=== PATIENT | male | born 1950 | race Caucasian/White ===

== ENCOUNTER → 2021-03-19 14:46 | Outpatient (CLI) | payer MEDICARE, BC, SELFPAY ==
--- NOTE | 2021-03-19 14:59 | XR_ITS ---
PROCEDURE: XR ANKLE WT BEARING LT MIN 3V CLINICAL INDICATION: pain COMPARISON: No exams were available for comparison FINDINGS: There is mild eversion of ankle with narrowing of the joint space laterally. There are mild osteoarthritic changes at the ankle joint including the tibial talar joint and posterior subtalar joint with pes planus noted and a small calcaneal spur. No acute fracture or dislocation. No lytic or blastic change. IMPRESSION: Degenerative changes with pes planus. Dictated by: Titus Abbott MD 03/19/2021 16:15 Titus Abbott MD in [place] 03/19/2021 16:15
--- NOTE | 2021-03-19 14:59 | XR_ITS ---
PROCEDURE: XR ANKLE WT BEARING RT MIN 3V CLINICAL INDICATION: pain COMPARISON: No exams were available for comparison FINDINGS: There are severe osteoarthritic changes of the ankle with loss of joint space and osteophyte formation. There is cortical regularity of the talar dome. The ankle mortise is preserved. There is flattening of the talar dome posteriorly with prominent posterior talar process. Pes planus noted. Bony hypertrophy is also present along the anterior and dorsal aspect of the calcaneus. 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
== END ==
PROVIDERS: PCP Physician Assistant; Visit Provider Podiatrist
DX: M25.572 Pain in left ankle and joints of left foot (principal); M25.571 Pain in right ankle and joints of right foot
CPT/HCPCS: 73610

== ENCOUNTER → 2021-04-07 13:13 | Outpatient (CLI) | payer MEDICARE, BC, SELFPAY ==
--- NOTE | 2021-04-07 13:18 | XR_ITS ---
PROCEDURE: XR ANKLE WT BEARING LT MIN 3V CLINICAL INDICATION: b/l ankle pain COMPARISON: CR XR ANKLE WT BEARING LT MIN 3V from 03/19/2021 CR XR ANKLE WT BEARING RT MIN 3V from 03/19/2021 FINDINGS: There is decrease in the ankle joint space laterally with the talus slightly katy it. This is not significantly changed. There is mild widening of the space between the lateral aspect of the talus and the fibula. Overall, the ankle mortise does not appear widened. The talar dome has an unremarkable appearance. There is mild spurring of the distal tibia. Small calcaneal spur and Achilles enthesophyte noted along with pes planus. Mild osteoarthritis of the ankle. IMPRESSION: Degenerative changes as described above with mild eversion of the talus overall not significantly changed along with pes planus. Dictated by: Titus Abbott MD 04/07/2021 15:04 Titus Abbott MD in [place] 04/07/2021 15:04
--- NOTE | 2021-04-07 13:18 | XR_ITS ---
PROCEDURE: XR FOOT WT BEARING RT 3V XR ankle weight-bearing right three views CLINICAL INDICATION: foot pain COMPARISON: CR XR ANKLE WT BEARING RT MIN 3V from 04/07/2021 FINDINGS: Right foot: No fracture or dislocation. No lytic or blastic change. There is normal mineralization. Hallux valgus with mild osteoarthritis 1st MTP joint Other findings:Pes planus Right ankle: Severe osteoarthritis at the talotibial joint. There is mild anterior subluxation of the tibia with an osteophyte along the anterior talar dome buttressing the distal tibia. The prominent hypertrophic changes are present involving the posterior talar process. Subcortical cyst lucencies are present at the talar dome with some cortical irregularity of the distal tibia and the talar dome. Bony hypertrophy of the medial malleolar region. There is mild flattening of the talar dome posteriorly IMPRESSION: Right ankle: Severe osteoarthritis of the ankle with anterior subluxation of the tibia and prominent posterior talar process with bony hypertrophy with a buttressing osteophytes of the calcaneus and along the talar neck and anterior distal tibia. Right foot: Mild hallux valgus with pes planus. Dictated by: Titus Abbott MD 04/07/2021 16:00 Titus Abbott MD in [place] 04/07/2021 16:00
--- NOTE | 2021-04-07 14:46 | XR_ITS ---
PROCEDURE: XR CALCANEUS RT MIN 2V CLINICAL INDICATION: foot pain COMPARISON: CR XR ANKLE WT BEARING RT MIN 3V from 03/19/2021 FINDINGS: Mildly prominent calcaneal spur. Small Achilles enthesophyte. There is a prominent posterior talar process with bony hypertrophy projecting superiorly at this region. A bridging osteophyte projects from the superior aspect of the calcaneus to the prominent posterior talar process. No obvious fracture or dislocation. IMPRESSION: There is a prominent posterior talar process with bony hypertrophy projecting superiorly at this region. A bridging osteophyte projects from the superior aspect of the calcaneus to the prominent posterior talar process Dictated by: Titus Abbott MD 04/07/2021 15:55 Titus Abbott MD in [place] 04/07/2021 15:55
--- NOTE | 2021-04-07 14:46 | XR_ITS ---
PROCEDURE: XR FOOT WT BEARING LT 3V CLINICAL INDICATION: foot pain COMPARISON: No exams were available for comparison FINDINGS: No fracture or dislocation. No lytic or blastic change. There is normal mineralization. Osteoarthritic changes are present at the 1st tarsal metatarsal joint. Hypertrophy is noted involving the proximal aspect of the 1st metatarsal. There is severe pes planus. Osteoarthritic changes are present also at the talonavicular and navicular cuneiform joint. There is a small calcaneal spur. Osteoarthritic changes are present at the ankle. Other findings:None. IMPRESSION: Severe pes planus with osteoarthritis of the 1st tarsal metatarsal junction, talonavicular joint and navicular cuneiform joint. Dictated by: Titus Abbott MD 04/07/2021 19:29 Titus Abbott MD in [place] 04/07/2021 19:29
--- NOTE | 2021-04-07 14:46 | XR_ITS ---
PROCEDURE: XR CALCANEUS LT MIN 2V CLINICAL INDICATION: foot pain COMPARISON: No exams were available for comparison FINDINGS: No fracture or dislocation. There is a small calcaneal spur. Small Achilles enthesophyte. There osteoarthritic changes of the ankle with posterior osteophyte of the distal tibia. IMPRESSION: No acute findings. Dictated by: Titus Abbott MD 04/07/2021 19:40 Titus Abbott MD in [place] 04/07/2021 19:40
== END ==
PROVIDERS: PCP Physician Assistant; Visit Provider Podiatrist
DX: M25.572 Pain in left ankle and joints of left foot (principal); M25.571 Pain in right ankle and joints of right foot
CPT/HCPCS: 73610; 73630; 73650

== ENCOUNTER → 2021-05-29 07:45 | Outpatient (CLI) | payer MEDICARE, BC, SELFPAY ==
[2021-05-29] VITALS (8 sets, daily range): BP systolic 120–136; BP diastolic 70–77; PULSE 64–78; RESP 18; O2SAT 95–97
== END ==
DX: U07.1 COVID-19 (principal); Z23 Encounter for immunization
CPT/HCPCS: 96365

== ENCOUNTER → 2022-08-04 15:32 | Outpatient (CLI) | payer MEDICARE, BC, SELFPAY ==
--- NOTE | 2022-08-04 15:37 | XR_ITS ---
FINAL REPORT CLINICAL HISTORY: Foot Pain FINDINGS: RIGHT FOOT Three views of the right foot demonstrate no acute fracture or dislocation. There are moderate degenerative changes. There is mild hallux valgus deformity. There are calcaneal spurs. The soft tissues are unremarkable. IMPRESSION: Moderate degenerative changes with no acute bony abnormality. Reviewed, Interpreted and Dictated by Carlton Braswell III, MD Transcribed by Kaitlynn Holcomb Authenticated and [facility]
--- NOTE | 2022-08-04 15:37 | XR_ITS ---
FINAL REPORT CLINICAL HISTORY: Foot Pain FINDINGS: LEFT FOOT Three views of the left foot demonstrate no acute fracture or dislocation. There are moderate degenerative changes. There is valgus angulation of the midfoot. There is pes planus deformity. There are calcaneal spurs. The soft tissues are unremarkable. IMPRESSION: Moderate degenerative changes with no acute bony abnormality. Reviewed, Interpreted and Dictated by Carlton Braswell III, MD Transcribed by Kaitlynn Holcomb Authenticated and . [facility]
--- NOTE | 2022-08-04 15:37 | XR_ITS ---
FINAL REPORT CLINICAL HISTORY: Ankle Pain FINDINGS: LEFT ANKLE Three views of the left ankle were obtained. There is no acute fracture or dislocation. There are moderate degenerative changes. There is pes planus deformity. There are calcaneal spurs. There is soft tissue swelling about the ankle. IMPRESSION: Moderate degenerative changes with no acute bony abnormality. Reviewed, Interpreted and Dictated by Carlotn Braswell III, MD Transcribed by Kaitlynn Holcomb Authenticated and [facility]
--- NOTE | 2022-08-04 15:37 | XR_ITS ---
FINAL REPORT CLINICAL HISTORY: Ankle Pain FINDINGS: RIGHT ANKLE Three views of the right ankle were obtained. There is no acute fracture or dislocation. There are moderate and severe degenerative changes. There is pes planus deformity. There are calcaneal spurs. There is a chronic appearing irregularity of the talar dome. There is soft tissue swelling about the ankle. IMPRESSION: Moderate and severe degenerative changes with no acute bony abnormality. Reviewed, Interpreted and Dictated by Carlton Braswell III, MD Transcribed by Kaitlynn Holcomb Authenticated and [facility]
== END ==
PROVIDERS: PCP Nurse Practitioner Family; Visit Provider Nurse Practitioner Family
DX: M25.572 Pain in left ankle and joints of left foot; M25.571 Pain in right ankle and joints of right foot; M79.672 Pain in left foot; M79.671 Pain in right foot
CPT/HCPCS: 73610; 73630

== ENCOUNTER → 2022-11-01 14:58 | Outpatient (CLI) | payer MEDICARE, BC, SELFPAY ==
--- NOTE | 2022-11-01 14:58 | CT_ITS ---
FINAL REPORT TECHNIQUE: Thin section axial CT images with coronal and sagittal reformats were performed. This study was performed with techniques to keep radiation doses as low as reasonably achievable (ALARA). Individualized dose reduction techniques using automated exposure control or adjustment of mA and/or kV according to the patient''s size were employed. CLINICAL HISTORY: foot pain, no injury. Patient is diabetic. He is also having a mri at this time. FINDINGS: CT RIGHT FOOT WITHOUT CONTRAST There are no fractures. Severe degenerative changes are seen in the ankle joint. Moderate degenerative changes are seen in the midfoot and hindfoot. There is no obvious bony destruction. There are no masses or fluid collections. There are no soft tissue abnormalities. IMPRESSION: Degenerative changes without bone destruction or fluid collection. A component of neuropathic joint is not excluded. Reviewed, Interpreted and Dictated by Risa Flor MD Transcribed by Susannah Ramos Authenticated and [facility]
--- NOTE | 2022-11-01 14:58 | CT_ITS ---
FINAL REPORT TECHNIQUE: Thin section axial CT images with coronal and sagittal reformats were performed. This study was performed with techniques to keep radiation doses as low as reasonably achievable (ALARA). Individualized dose reduction techniques using automated exposure control or adjustment of mA and/or kV according to the patient''s size were employed. CLINICAL HISTORY: foot pain, no injury. patient is diabetic. patient is also having a mri of both feet at this time. FINDINGS: CT LEFT FOOT WITHOUT CONTRAST There are no fractures. There are mild degenerative changes of the hindfoot and ankle joint with severe degenerative changes of the tarsometatarsal joint. There are mild degenerative changes at the lateral midfoot. There are no masses or fluid collections. There are no soft tissue abnormalities. IMPRESSION: Mild degenerative changes of the ankle and hindfoot with severe degenerative change of the medial midfoot. Reviewed, Interpreted and Dictated by Risa Flor MD Transcribed by Susannah Ramos Authenticated and [facility]
--- NOTE | 2022-11-01 16:05 | MR_ITS ---
PROCEDURE INFORMATION: Exam: MR Right Lower Extremity Joint Without Contrast; Ankle Exam date and time: 11/01/2022 4:16 PM Age: 72 years old Clinical indication: Pain; Ankle; Right; Additional info: Ankle pain. FX in ankle years ago and pain since. TECHNIQUE: Imaging protocol: Magnetic resonance imaging of the right lower extremity without contrast. Exam focused on the ankle. COMPARISON: CR XR ANKLE WT BEARING RT MIN 3V 08/04/2022 3:39 PM FINDINGS: Bones/joints: Chronic contour irregularity of tibiofibular joint with [id number] appearance, subchondral sclerosis and periarticular reactive changes. No acute cortical disruption or fracture line identified. No effusion. Normal bone signal. LIGAMENTS: Chronically attenuated deltoid ligament. Attenuated anterior and posterior talofibular ligaments. Calcaneofibular ligament not visualized. Tibiofibular ligament grossly unremarkable. TENDONS: Posterior tibial, flexor digitorum longus, flexor hallucis longus, Achilles, peroneal, anterior tibial, extensor hallucis longus, extensor digitorum longus tendons grossly intact and unremarkable. Tarsal canal (Sinus tarsi): Sinus tarsi grossly unremarkable. Tarsal tunnel: Unremarkable. Soft tissues: Interstitial ligamentous sprain of flexor hallucis longus muscle. Plantar fascia: Plantar aponeurosis grossly unremarkable. IMPRESSION: 1. Severe degenerative changes of tibiotalar joint with [id number] appearance, reactive subchondral sclerosis and periarticular edema. No acute cortical disruption fracture line identified. 2. Suspected, chronic partial-thickness tear of deltoid, anterior and posterior talofibular ligaments. Nonvisualized calcaneofibular ligament. Can not exclude chronic rupture.
== END ==
PROVIDERS: PCP Nurse Practitioner Family; Visit Provider Nurse Practitioner Family
DX: M14.672 Charcot's joint, left ankle and foot (principal); M19.071 Primary osteoarthritis, right ankle and foot; M19.072 Primary osteoarthritis, left ankle and foot; M21.41 Flat foot [pes planus] (acquired), right foot; M21.42 Flat foot [pes planus] (acquired), left foot
CPT/HCPCS: 73700; 73721

== ENCOUNTER → 2022-11-02 14:59 | Outpatient (CLI) | payer MEDICARE, BC, SELFPAY ==
--- NOTE | 2022-11-02 14:59 | MR_ITS ---
PROCEDURE INFORMATION: Exam: MR Left Lower Extremity Joint Without Contrast; Ankle Exam date and time: 11/02/2022 3:45 PM Age: 72 years old Clinical indication: Pain; Ankle; Left; Additional info: Ankle pain TECHNIQUE: Imaging protocol: Magnetic resonance imaging of the left lower extremity without contrast. Exam focused on the ankle. COMPARISON: CR XR ANKLE WT BEARING LT MIN 3V 08/04/2022 3:39 PM FINDINGS: Bones/joints: Calcaneal spurs are visualized. Degenerative changes are visualized at the tibiotalar joint, with severe joint space narrowing, spurring, cortical irregularity and mild subchondral cystic change. Subchondral cystic change is also identified adjacent to the subtalar joint anteriorly, consistent with arthropathy. Mild spurring is identified of the medial malleolus and adjacent talus. There is cortical regularity and spurring of the distal fibula. Advanced arthropathy is seen at the 1st metatarsal-tarsal joint, with subchondral cystic change. Degenerative changes are visualized involving the midfoot. A tiny osseous cyst is seen within the distal fibula. Small tibiotalar joint effusion. A small complex subtalar joint effusion is seen posterior to the joint. Additional arthropathy at metatarsal-tarsal joints. LIGAMENTS: Distal tibiofibular syndesmosis: Heterogeneous signal intensity of the anterior and posterior tibiofibular ligaments, with suggested partial tears. Anterior talofibular ligament: Heterogeneous signal intensity of the anterior talofibular ligament, with partial tear. Posterior talofibular ligament: There is heterogeneous signal intensity of the posterior talofibular ligament. Partial tear cannot be excluded. Calcaneofibular ligament: The calcaneofibular ligament is small in caliber. Partial tear cannot be excluded. Deltoid ligament complex: Increased signal intensity within the deltoid ligament, with suggested partial tear. TENDONS: Flexor tendons of foot: See below. Tibialis posterior tendon: Heterogeneous signal intensity of the posterior tibialis tendon, with a small amount of surrounding fluid. This is consistent with tenosynovitis. Tenosynovitis visualized of the flexor hallucis tendon. Peroneal tendons: Mild tenosynovitis of the peroneal tendons. Extensor tendons of foot: Minimal fluid adjacent to the extensor digitorum tendons, suggestive of tenosynovitis. Tibialis anterior tendon: Unremarkable as visualized. Achilles tendon: Thickening of the Achilles tendon. Tendinosis is considered. Tarsal canal (Sinus tarsi): Edema and small cystic collections of fluid are seen within the sinus tarsi. Tarsal tunnel: Unremarkable. Soft tissues: Minimal fluid within the retrocalcaneal bursa. Patchy muscle edema visualized involving the foot and ankle. Myositis and myopathy are within the differential. Severe muscle atrophy identified involving the foot. Plantar fascia: Intact, as visualized. IMPRESSION: 1. Degenerative changes are visualized involving the foot and ankle, as detailed above. Advanced arthropathy is seen at the 1st metatarsal-tarsal joint. Significant degenerative changes are seen at the tibiotalar and subtalar joints. 2. Tenosynovitis of the posterior tibialis tendon and flexor hallucis tendon. Mild tenosynovitis of the peroneal tendons. 3. Partial tear of the anterior talofibular ligament. Suggested partial tears of the anterior and posterior tibiofibular ligaments. Suggested partial tear of the deltoid ligament. 4. Small tibiotalar joint effusion. A small complex subtalar joint effusion is seen posterior to the joint. 5. Patchy muscle edema visualized involving the foot and ankle.
== END ==
PROVIDERS: PCP Nurse Practitioner Family; Visit Provider Nurse Practitioner Family
DX: M14.672 Charcot's joint, left ankle and foot (principal); M19.071 Primary osteoarthritis, right ankle and foot; M19.072 Primary osteoarthritis, left ankle and foot; M21.41 Flat foot [pes planus] (acquired), right foot; M21.42 Flat foot [pes planus] (acquired), left foot; M25.572 Pain in left ankle and joints of left foot
CPT/HCPCS: 73721

== ENCOUNTER → 2023-03-15 10:55 | Outpatient (CLI) | payer MEDICARE, BC, SELFPAY ==
--- NOTE | 2023-03-15 10:57 | US_ITS ---
FINAL REPORT CLINICAL HISTORY: LE weakness and pain, ex-smoker FINDINGS: COMPLETE ANKLE/BRACHIAL INDICES BILATERAL Complete ankle brachial indices were obtained. The right PATITO is 1.4. The left PATITO is 1.3. IMPRESSION: ABIs are within normal limits bilaterally. Reviewed, Interpreted and Dictated by Carlton Braswell III, MD Transcribed by Jeanine Luis Authenticated and [facility]
--- NOTE | 2023-03-15 11:23 | ECG_ITS ---
APPROVED REPORT Exam: Resting ECG HR:65 bpm ECG Measurements Heart Rate 65 AXES MS 172 P 57 QRSd 94 QRS 75 QT 384 T 45 QTc 396 Conclusion SINUS RHYTHM WITH SINUS ARRHYTHMIA NORMAL ECG UNCONFIRMED REPORT Electronically signed by : Vaughn Roman MD 03/15/2023 19:22:29
--- NOTE | 2023-03-15 11:35 | XR_ITS ---
FINAL REPORT CLINICAL HISTORY: cough FINDINGS: Two views of the chest were obtained. The heart size and pulmonary vascularity are within normal limits. The mediastinum is normal. No acute pulmonary abnormality is identified. There is no pneumothorax. The bony thorax is intact. IMPRESSION: No active cardiopulmonary disease. Reviewed, Interpreted and Dictated by Carlton Braswell III, MD Transcribed by Jeanine Luis Authenticated and [facility]
[2023-03-15 12:02] LABS: Basophils % 0.2 % (0.1-2.0); Eosinophils # 0.1 K/mm3 (0.0-0.4); Eosinophils % 1.9 % (0.1-12.0); Hematocrit 42.6 % (42.0-52.0); Hemoglobin 14.3 g/dL (14.1-18.0); Lymphocytes # 1.5 K/mm3 (0.7-4.5); Lymphocytes % 20.9 % (10-50); Mean Corpuscular HGB Conc 33.7 g/dL (31.8-35.4); Mean Corpuscular Hemoglobin 28.2 pg (27.0-31.2); Mean Corpuscular Volume 83.7 fl (80-94); Mean Platelet Volume 8.3 fl (7.4-10.4); Monocytes # 0.3 K/mm3 (0.1-1.0); Neutrophils # 5.1 K/mm3 (1.8-7.8); Neutrophils % 72.9 % (37.0-80.0); Platelet Count 180 K/mm3 (142-424); Red Blood Count 5.09 M/mm3 (4.60-6.20); Red Cell Distribution Width 14.8 % (11.5-17.5)
[2023-03-15 12:41] LABS: Hemoglobin A1C 6.5 % (4.0-6.0)
[2023-03-15 12:58] LABS: Chloride 102 mmol/L (98-107); Potassium 3.9 mmoL/L (3.5-5.1); Sodium 137 mmol/L (136-145)
[2023-03-15 13:00] LABS: Alanine Aminotransferase 37 U/L (12-78); Aspartate Amino Transferase 45 U/L (17-59); Blood Urea Nitrogen 17 mg/dl (9-20); Estimated Glomerular Filt Rate 73 ml/min (>60); GFR (African American) 88 ML/MIN (>60)
[2023-03-15 13:01] LABS: Albumin Level 4.2 g/dl (3.5-5.0); Albumin/Globulin Ratio 1.4 (1.1-1.8); Alkaline Phosphatase 106 U/L (38-126); Anion Gap 14.9 mEq/L (5-15); Bilirubin,Total 0.7 mg/dl (0.2-1.3); Calcium 9.4 mg/dl (8.4-10.2); Carbon Dioxide 24 mmol/L (22.0-30.0); Glucose 210 mg/dl (74-100); Total Protein,Serum 7.2 g/dl (6.3-8.2)
[2023-03-15 15:41] LABS: Vitamin B12 362 pg/mL (239-931)
[2023-03-26 18:29] LABS: 1,25 Dihydroxy Vitamin D 30 pg/mL (.); 1,25-Dihydroxy, Vitamin D-2 11 pg/mL (.); 1,25-Dihydroxy, Vitamin D-3 19 pg/mL (.)
== END ==
PROVIDERS: PCP Nurse Practitioner Family; Visit Provider Podiatrist
DX: E11.42 Type 2 diabetes mellitus with diabetic polyneuropathy (principal); M19.071 Primary osteoarthritis, right ankle and foot; M19.072 Primary osteoarthritis, left ankle and foot; R09.89 Other specified symptoms and signs involving the circulatory and respiratory systems; G89.29 Other chronic pain; M14.672 Charcot's joint, left ankle and foot; M25.571 Pain in right ankle and joints of right foot; M25.572 Pain in left ankle and joints of left foot; R29.898 Other symptoms and signs involving the musculoskeletal system; Z79.84 Long term (current) use of oral hypoglycemic drugs
CPT/HCPCS: 36415; 71046; 80053; 82607; 82652; 82746; 83036; 84443; 85025; 93005; 93923

== ENCOUNTER 2023-03-30 12:31 | Emergency (ER) | payer MEDICARE, BC, SELFPAY ==
[2023-03-30 13:00] VITALS: BP 141/86; PULSE 70; RESP 19; TEMP 36.8; O2SAT 96; BMI 32.5
[2023-03-30 13:10] VITALS: BP 141/86; PULSE 70; RESP 19; TEMP 36.8; O2SAT 96
--- NOTE | 2023-03-30 13:16 | EXP.UTC ---
Discharge Plan Disposition Patient Disposition: Home, Self-Care Condition: Good Prescriptions Prescriptions: New ondansetron 4 mg tablet,disintegrating 4 mg PO Q8H PRN (Reason: nausea and vomiting) Qty: 10 0RF No Action amlodipine 5 mg tablet 5 mg PO metformin 500 mg tablet 500 mg PO losartan-hydrochlorothiazide 100-25 mg tablet 1 tab PO simvastatin 40 mg tablet 40 mg PO celecoxib 200 mg capsule 200 mg PO aspirin 81 mg capsule 81 mg PO DAILY Trulicity 0.75 mg/0.5 mL pen injector SQ Centrum Silver Men 300-600-300 mcg tablet 1 tab PO DAILY diphenhydramine-acetaminophen [Tylenol PM Extra Strength] 25-500 mg tablet 1 tab PO HS PRN latanoprost 0.005 % drops OPHTHALMIC Patient Comments: INSTILL 1 DROP IN BOTH EYES AT BEDTIME potassium chloride 10 mEq tablet extended release 10 meq PO timolol maleate 0.5 % drops 1 drp OPHTHALMIC Patient Comments: INSTILL ONE DROP INTO BOTH EYES EVERY MORNING venlafaxine 75 mg tablet extended release 24hr 75 mg PO DAILY Patient Comments: TAKE 1 TABLET BY MOUTH EVERY DAY WITH FOOD esomeprazole magnesium 40 mg capsule,delayed release(DR/EC) 40 mg PO Jardiance 10 mg tablet 10 mg PO DAILY Referrals Follow up/Referrals: Nickie Bullock APRN [Primary Care Provider] - See instructions Activity Restrictions/Add. Instructions Additional Instructions/Restrictions: Drink extra fluids with and between meals. If you have difficulty drinking, try very small amounts of water or suck on ice chips. ? Avoid fruit juices, as these do not replace minerals and can actually increase diarrhea. ? Children and adults can use sports drinks to replenish electrolytes. Younger children and infants should use products formulated for children, like oral rehydration solutions. ? Eat food in small amounts and let your stomach recover. ? Get lots of rest. You may feel tired or weak. ? No greasy or fried foods for the next 24-48 hours BRAT diet Bananas Rice Apples and [place] ? Make sure to drink plenty of liquids ? Return if needed ? Straight to ER if any life threatening symptoms ? Zofran as prescribed ? You was given an outpatient order for diarrhea panel, please collect specimen and bring back to outpatient lab then call back to the [facility] or follow up with family doctor for results ? Follow up with family doctor in the next 48-72 hours if no improvement or any worsening of symptoms Clinical Impressions Clinical Impression: Nausea, vomiting and diarrhea Instructions Patient Instructions: Nausea and Vomiting-Adult, Diarrhea Discharge ED Provider: Ailyn Tejeda [facility] [place] HPI General Stated complaint: stomach pain, vomiting, diarrhea Mode of Arrival: Ambulatory Source of Information: Patient Limitations: No Limitations Time Seen by Provider: 03/30/23 13:16 Description of Symptoms (Recalled from Triage Doc. by RN): PATIENT C/O VOMITING AND DIARRHEA SINCE TUESDAY HEENT Symptoms (Recalled from RN notes): No Resp Symptoms (Recalled from RN notes): No Skin Symptoms (Recalled from RN notes): No MS Symptoms (Recalled from RN notes): No Functional Status (Recalled from RN notes): WNL History of Present Illness Provider Complaint: Patient states that got sick on Tuesday then Yesterday he started with N/V/D also States that he has still been drinking ok and he wanted to get something to help with his nausea Related Data Home Medications Medication Instructions Recorded Confirmed amlodipine 5 mg tablet 5 mg PO 04/07/21 02/03/23 aspirin 81 mg capsule 81 mg PO DAILY 04/07/21 02/03/23 celecoxib 200 mg capsule 200 mg PO 04/07/21 02/03/23 diphenhydramine 25 1 tab PO HS PRN 04/07/21 02/03/23 mg-acetaminophen 500 mg tablet (Tylenol PM Extra Strength) dulaglutide 0.75 mg/0.5 mL m
== END 2023-03-30 13:47 | disposition home or self-care (01) ==
PROVIDERS: Emergency Provider Nurse Practitioner; PCP Nurse Practitioner Family
DX: R11.2 Nausea with vomiting, unspecified (principal); R19.7 Diarrhea, unspecified; Z87.891 Personal history of nicotine dependence
CPT/HCPCS: 99204; 99212; G0463

== ENCOUNTER → 2023-05-06 11:46 | Outpatient (CLI) | payer MEDICARE, BC, SELFPAY ==
--- NOTE | 2023-05-06 | CA_ITS ---
APPROVED REPORT Exam: Pharmacologic Technologist: Ilda Cadena, Ht: 5 ft 8 in Wt: 215 lbs BSA: 2.11 m2 HR: 60 bpm BP: 138/74 mmHg Rhythm: sinus bradycardia Medical History Medications: Amlodipine,,,,, Omeprazole,,,,, Aspirin,,,,, Simvastatin,,,,, Metformin,,,,, Tylenol,,,,, Celecoxib,,,,, Venlafaxine,,,,, Losartan HCTZ,,,,, Potassium,,,,, TrULicity,,,,, Vit D2,,,,, Cardiac Risk Factors: HTN, Hyperlipidemia, Diabetes (non-insulin), Smoking Stress Test Details Test: LEXISCAN HR Resting HR: 62 bpm Max Heart Rate (APMHR): 146 bpm Max HR Achieved: 84 bpm Target HR (85% APMHR): 124 bpm % of APMHR: 58 Recovery HR: 66 bpm BP Resting BP: 138/74 mmHg Max BP: 163/75 mmHg Recovery BP: 163.0/75.0 mmHg ECG Resting ECG: Sinus bradycardia Stress ECG: No significant ST changes Arrhythmia: None Clinical Exercise duration: 04:01 min Highest Stage Achieved: Exercise capacity: 1.0 METs Stress ECG Conclusion During lexiscan pt experinced mild dizziness, no CP noted. No arrhythmias noted. No significant ST changes. Conclusion: Unremarkable lexiscan stress. Myoview images reported separately. Test Summary REST . . . . . . . Sitting REST 04:15 . . 62 . 138/ 74 . . Stage 1 01:00 . . 76 . . . . Stage 2 01:00 . . 78 . . . . Stage 3 01:00 . . 68 . 148/ 70 . . Stage 4 01:00 . . 63 . 154/ 72 . . Stage 4 01:01 . . 63 . 154/ 72 . Stop exercise at 04:01 RECOVERY 01:00 . . 65 . . . . RECOVERY 02:00 . . 76 . . . . RECOVERY 03:00 . . 63 . 163/ 75 . . RECOVERY 03:41 . . 64 . 156/ 75 . . Electronically signed by : Misa Green MD 05/10/2023 10:55:05
--- NOTE | 2023-05-06 11:47 | NM_ITS ---
APPROVED REPORT Exam: Nuclear Stress Test Indication: chest pain..palpitations..pre-op Patient Location: Outpatient Stress Tech: Ilda MEDRANO Tech:Suzy Joshua GILBERT RT(R)(N) Ht: 5 ft 7 in Wt: 215 lbs HR: 62 bpm BP: 138/74 mmHg BSA: 2.09 m2 TID: 1.27 BMI: 33.6 History: chest pain..palpitations..pre-op Procedure: Patient received 0.4 mg of intravenous Lexiscan, resting heart rate 62 bpm, resting blood pressure 138/74 mmHg, with Lexiscan maximum heart rate achieved was 84 bpm which is 85 % of the maximum predicted heart rate and blood pressure was 163/75 mmHg. With Lexiscan, patient denied any complaint of chest pain. Cardiac Stress and Resting SPECT Images: Cardiac Stress and Resting SPECT images were obtained using technetium 99m Myoview 32.6 mCi stress and 10.75 mCi at rest. Resting and stress imaging in supine and prone positions demonstrate no evidence of fixed or reversible perfusion defects. There is increased transient ischemic dilatation ratio (TID 1.27), suggestive of possible multivessel disease or balanced ischemia. Gated imaging demonstrates normal global and regional LV systolic function. LVEF is calculated at 65%. Conclusion: No evidence of fixed or reversible perfusion defects. There is increased transient ischemic dilatation ratio (TID 1.27), suggestive of possible multivessel disease or balanced ischemia. Gated imaging demonstrates normal global and regional LV systolic function. LVEF is calculated at 65%. Electronically signed by : Misa Green MD 05/10/2023 10:56:29
--- NOTE | 2023-05-06 13:41 | CA_ITS ---
APPROVED REPORT EXAM: Comprehensive 2D, Doppler, and color-flow Echocardiogram Sanforizer: Jing Velez, ROMAN, RVS Ht: 5 ft 7 in Wt: 215lbs BSA: 2.09 BP: 132/74 mmHg Indications: SOA, Pre-op, ex-smoker, CP, HTN, DM 2D Dimensions Aortic Root 3.11 cm LVEF (Weir's) 60.00 % Left Atrium 2.66 cm LV Volume 85.60 mL LVOT 1.91 cm (M/F) 1.5-2.5 LA Volume 69.20 mL LA Volume Index 33.10 mL/m2 (M/F) 16-34 EF AP4 65.50 % EF AP2 53.6 % EF BP 60.0 % GL Strain -20.6 % M-Mode Dimensions RVDd 1.75 cm (0.9-2.6) LVDd 5.15 cm (3.5-5.7) Ao Diam 3.37 cm (2.0-3.7) LVDs 3.01 cm (3.5-5.7) IVSd 1.07 cm (0.6-1.1) PWd 0.97 cm (0.6-1.1) EF (Teich) 72.10% EPSs 0.32 cm FS 41.60% EDV (Teich) 126.60 mL TAPSE 1.66 (<1.7) ESV (Teich) 35.30 mL LV Diastology E Decel Time 261 (160-240 msec) E/A Ratio 0.80 MED E' 5.7 (>= 7 cm/sec) MED A' 12.00 cm/s E'/MED E' Ratio 13.30 (<= 14) LAT E' 6.8 (>= 10 cm/sec) LAT A' 10.80 cm/s E/LAT E' Ratio 11.15 (<= 14) Aortic Valve LVOT Max 146.0 (70-110 cm/s) ELANA Index 1.24 cm2/m2 LVOT VTI 32.43 cm AoV Peak Hal. 180.0 (50-130 cm/s) AO Mean GR. 6.50 (<5 mmHg) AO VTI 35.7 (18-25 cm) ELANA (VTI) 2.60 (2.5-4.5 cm2) Mitral Valve MV E Max Hal. 76.0 (40-130 cm/s) MV A Velocity 95.0 (40-130 cm/s) E/A Ratio 0.80 MV Decel. Time 261 (160-240 ms) Pulmonary Valve DC End VMAX 194.0 cm/s Tricuspid Valve TR P. Velocity 146.00 cm/s Left Ventricle The left ventricle is normal size. The left ventricular systolic function is normal. The left ventricular ejection fraction is within the normal range. There is increased LV wall thickness. Proximal septal thickening is noted. There is normal LV segmental wall motion. The left ventricular diastolic function is normal. LVEF is 60%. Right Ventricle The right ventricle is normal size. The right ventricular systolic function is normal. Atria The left atrium size is normal. The right atrium size is normal. Aortic Valve The aortic valve is mildly thickened. There is no aortic valvular stenosis. Trace aortic regurgitation. Mitral Valve The mitral valve leaflets are mildly thickened. No evidence of mitral valve stenosis. Trace mitral regurgitation. Tricuspid Valve The tricuspid valve leaflets are thin and pliable. Trace tricuspid regurgitation. There is insufficient TR jet to estimate RVSP. Pulmonic Valve The pulmonary valve is normal in structure. Trace pulmonic regurgitation. Great Vessels The aortic root is normal in size. The ascending aorta is normal in size. The IVC is not well-visualized. Pericardium Reveal pericardial effusion. There are no echo indications of tamponade. Other Information Study Quality: Fair Conclusion Normal biventricular systolic function. No significant valvular stenosis or regurgitation. Trivial pericardial effusion. Electronically signed by : Misa Green MD 05/09/2023 21:33:33
== END ==
PROVIDERS: PCP Nurse Practitioner Family; Visit Provider Nurse Practitioner Family
DX: Z01.810 Encounter for preprocedural cardiovascular examination (principal); E78.5 Hyperlipidemia, unspecified; I10 Essential (primary) hypertension; R06.00 Dyspnea, unspecified; R06.09 Other forms of dyspnea; R07.89 Other chest pain; R94.31 Abnormal electrocardiogram [ECG] [EKG]; Z87.891 Personal history of nicotine dependence
CPT/HCPCS: 78452; 93017; 93018; 93306; A9502; J2785

== ENCOUNTER 2023-05-12 08:55 | Day surgery (SDC) | payer MEDICARE, BC, SELFPAY ==
[2023-05-12] VITALS (10 sets, daily range): BP systolic 121–155; BP diastolic 63–90; PULSE 57–71; RESP 15–17; O2SAT 91–96; BMI 33.3
--- NOTE | 2023-05-12 | IR_ITS ---
APPROVED REPORT Patient Location: Outpatient PROCEDURES Left heart catheterization Left ventriculogram Selective coronary angiogram INDICATION Abnormal Myoview, Preoperative evaluation Informed consent was obtained prior to the procedure. COMPLICATIONS None Estimated Blood Loss: Less than 10 mls TECHNIQUE One percent lidocaine used to anesthetize the right anterior aspect of the wrist. The right radial artery was accessed via the Seldinger technique. A 6 German sheath was placed in the right radial artery. 2.5 mg of Verapamil, 800 mcg of nitroglycerin, 1mg Lidocaine and 5000 U Heparin were given through the arterial sheath. The papa catheter and 6 German JL 3 catheter were also used to perform left heart catheterization, left ventriculogram and selective coronary angiogram. At the end of the procedure the sheath was removed good hemostasis was achieved using Traclet band, patient was transferred to the postop holding area in stable condition. ANGIOGRAPHIC RESULTS The left main artery Normal The left anterior descending artery Proximal 10% luminal irregularities with a mid vessel 40 to 50% stenosis followed by distal concentric 60 to 70% stenoses and a portion of the LAD which is only 2 mm in diameter The circumflex artery Is nondominant and has proximal and mid vessel 30 to 40% stenoses The right coronary artery Is a dominant vessel and has proximal and mid vessel 30% stenoses The HILLS ventriculogram reveals Normal 65% The left ventricular end-diastolic pressure 10 mmHg IMPRESSION Coronary artery disease as described above which is best managed medically Normal ejection fraction Normal left ventricular cell pressure PLAN 1. Risk factor modification 2. Cardiac rehabilitation 3. Avoidance of tobacco products 4. LDL less than 55 to be achieved with high intensity statin 5. Patient is alone acceptable risk to proceed with upcoming knee replacement surgery Electronically signed by : Santiago Brown MD 05/12/2023 12:19:26
[2023-05-12 09:36] LABS: Basophils # 0.1 K/mm3 (0-0.2); Basophils % 0.7 % (0.1-2.0); Eosinophils # 0.2 K/mm3 (0.0-0.4); Eosinophils % 2.3 % (0.1-12.0); Hematocrit 44.1 % (42.0-52.0); Hemoglobin 15.3 g/dL (14.1-18.0); Lymphocytes # 1.7 K/mm3 (0.7-4.5); Lymphocytes % 22.5 % (10-50); Mean Corpuscular HGB Conc 34.6 g/dL (31.8-35.4); Mean Corpuscular Hemoglobin 28.6 pg (27.0-31.2); Mean Corpuscular Volume 82.7 fl (80-94); Mean Platelet Volume 9.1 fl (7.4-10.4); Monocytes # 0.5 K/mm3 (0.1-1.0); Monocytes % 6.3 % (1.7-9.3); Neutrophils # 5.1 K/mm3 (1.8-7.8); Neutrophils % 68.2 % (37.0-80.0); Platelet Count 205 K/mm3 (142-424); Red Blood Count 5.33 M/mm3 (4.60-6.20); Red Cell Distribution Width 14.8 % (11.5-17.5); White Blood Count 7.5 K/mm3 (4.8-10.8)
[2023-05-12 09:46] LABS: Chloride 102 mmol/L (98-107); Sodium 139 mmol/L (136-145)
[2023-05-12 09:47] LABS: Potassium 3.8 mmoL/L (3.5-5.1)
[2023-05-12 09:49] LABS: Blood Urea Nitrogen 14 mg/dl (9-20); Creatinine Clearance Estimated 83 mL/min (50-200); Estimated Glomerular Filt Rate 65 ml/min (>60); GFR (African American) 79 ML/MIN (>60)
[2023-05-12 09:50] LABS: Anion Gap 13.8 mEq/L (5-15); Calcium 9.5 mg/dl (8.4-10.2); Carbon Dioxide 27 mmol/L (22.0-30.0); Glucose 160 mg/dl (74-100)
== END 2023-05-12 15:37 | disposition home or self-care (01) ==
LOC: CATHLAB 08:56
PROVIDERS: PCP Nurse Practitioner Family; Visit Provider Internal Medicine
DX: R94.39 Abnormal result of other cardiovascular function study (principal); I10 Essential (primary) hypertension; E78.5 Hyperlipidemia, unspecified; E11.42 Type 2 diabetes mellitus with diabetic polyneuropathy; Z79.84 Long term (current) use of oral hypoglycemic drugs; Z79.899 Other long term (current) drug therapy; Z87.891 Personal history of nicotine dependence; I25.10 Atherosclerotic heart disease of native coronary artery without angina pectoris
CPT/HCPCS: 80048; 85025; 93458; 99152; C1725; C1760; C1769; J1644; Q9967

== ENCOUNTER 2023-07-06 09:47 | Observation (INO) | payer MEDICARE, BC, SELFPAY ==
[2023-07-04 13:14] VITALS: BMI 33.0
[2023-07-06] VITALS (18 sets, daily range): BP systolic 107–145; BP diastolic 53–78; PULSE 61–97; RESP 12–18; TEMP 36.3–37.6; O2SAT 92–96; BMI 34.4
--- NOTE | 2023-07-06 07:30 | XR_ITS ---
FINAL REPORT CLINICAL HISTORY: surgery COMPARISON: 03/15/2023 FINDINGS: A single portable view of the chest was obtained. The heart size and pulmonary vascularity are within normal limits. The mediastinum is within normal limits. No acute pulmonary abnormality is identified. The bony thorax is intact. IMPRESSION: No active cardiopulmonary disease. Reviewed, Interpreted and Dictated by Carlton Braswell III, MD Transcribed by Fidelina Mccormick Authenticated and [facility]
[2023-07-06] MEDS: LACTATED RINGERS 1000ML 1,000 ML 25 ML IV (07:51)
--- NOTE | 2023-07-06 09:03 | P.PNANES_ITS ---
[facility] Disclaimer: The information contained in this section may have been updated after the patient was seen, as this information can be updated by other users. Medical History Arthritis CAD (coronary artery disease) Diabetes GERD (gastroesophageal reflux disease) History of tonsillitis HLD (hyperlipidemia) HTN (hypertension) Surgical History History of appendectomy History of cardiac cath History of cholecystectomy History of hernia repair History of knee replacement Family History Other Family history of cancer Family history of diabetes mellitus Family history of heart disease Social History Smoking Status: Former smoker alcohol intake: former substance use type: denies use current occupational status: retired Travel in the last 8 weeks: Inside the [place] [facility] Anesthesia Checklist Patient Identification Patient Identification: Arm Band and Verbal (Name & ) Structural Data Admitted From: Home Planned Operative Procedure/s: Arthrodesis with ankle lengthening Consent for Planned Operative Procedure(s) Verified: Yes NPO Status Verified Time NPO: 00:00 Chart Verification Results Verified: CBC, BMP and ECG Additional verifications Anesthesia Reactions: No Hx Blood Transfusions: No Blood Transfusion Reaction: No Airway Assessment Mallampati Score:: Class III C-Spine Mobility Assessed: Yes TMJ Mobility Assessed: Yes Dentition: Good Dentition Neurological Assessment Level of Consciousness: Awake Hx Seizures: No Numbness or tingling in extremities: No Anesthesia Plan Anesthesia Risk discussed: Yes Anesthesia Plan: Verified ASA Class: II Anesthesia Type: General w/block
[2023-07-06] MEDS: CEFAZOLIN SODIUM 2 GM in 0.9 % SODIUM CHLORIDE 100 ML IV (09:50)
[2023-07-06 09:55] LABS: POC Glucose,Bedside 145 (70-110)
--- NOTE | 2023-07-06 13:37 | XR_ITS ---
FINAL REPORT CLINICAL HISTORY: ANKLE STABILATION, BONE GRAFT 2.20 min 7.19 mgy FINDINGS: FLUOROSCOPY LESS THAN 1 HOUR HISTORY: Fluoroscopy guidance. Fluoroscopic guidance was provided for ankle stabilization, bone graft. 2 spot films were obtained. A total of 2.20 minutes of fluoroscopy time were used. Total DAP: 7.19 mGy IMPRESSION: As above. Reviewed, Interpreted and Dictated by Carlton Braswell III, MD Transcribed by Mari Hinds Authenticated and [facility]
--- NOTE | 2023-07-06 14:30 | EXP.ANES.I ---
[facility] Anesthesia Record Part I Anesthesia Record I Intake, IV Amount: 2,500 Hydration: Adequate Estimated blood loss (mL): 0 Urine output (mL): 400 Blood Pressure: 144/74 SaO2: 93 Pulse Rate: 92 Airway Patency: Patent Respiratory Rate: 12 Temperature: 97.8 F Patient is:: Awake and Stable Stable to PACU at:: 14:28
--- NOTE | 2023-07-06 14:44 | XR_ITS ---
FINAL REPORT CLINICAL HISTORY: pacu- post op, left ankle stablization COMPARISON: 08/04/2022 FINDINGS: Left ankle Three views were obtained. There are postsurgical changes from fusion of the ankle and rear foot. Intramedullary betsey and several screws are present. There is a drain in the anterior soft tissues. IMPRESSION: Postsurgical changes. Reviewed, Interpreted and Dictated by Carlton Braswell III, MD Transcribed by Jeanine Luis Authenticated and [facility]
[2023-07-06 14:57] LABS: Microscopic,Cath URINE MICROSCOPIC (MICROSCOPIC)
--- NOTE | 2023-07-06 15:07 | EXP.OP.NOTE ---
Date of procedure: 07/06/23 Pre-op Diagnosis:: Left foot/ankle Charcot neuroarthropathy Left hindfoot osteoarthritis Left ankle instability Type 2 diabetes Obesity class I Post-op Diagnosis:: Same Procedure performed:: Left tibiotalar calcaneal arthrodesis Left partial resection of fibula Left posterior tibial tendon debridement Left peroneal tenosynovectomy Application of allograft Application of DEBI drain Application of posterior splint Surgeon:: Laya Moreno DPM VICE PRESIDENT MEDIA RELATIONS:: Lance June Anesthesia: GETA and regional (Left popliteal, adductor canal nerve block) Estimated blood loss (mL): 40 Clinical Note:: Patient is a 73-year-old diabetic male with peripheral neuropathy and Charcot joint, bilateral flatfoot who presents with worsening ankle instability and pain. Conservative care has included: Modification of shoe gear, modification of activity, strapping/taping, ice, elevation, inserts, ankle bracing, immobilization, NSAIDs, steroid injections and stretching/PT without relief of symptoms. After a long discussion with the patient in regards to the conservative versus surgical treatment for the arthritic and Charcot deformity, the patient has elected to proceed with surgery because they have failed conservative treatment and continue to have pain and worsening symptoms affecting daily activities. The patient has been instructed on the planned procedure, all risk versus benefits of the procedure discussed. Discussed these include but are not limited to: bleeding, infection, nerve and blood vessel damage, need for further surgery, recurrence/worsening deformity, delay in healing of soft tissue or bone, failure of bones to heal, non-union, mal-union, failure of the implant, prolonged pain and recovery, prolonged/permanent edema, CRPS/RSD, DVT/PE and anesthetic complications including stroke/. Discussed if surgery is unsuccessful or has complications, likely could get a BKA. Discussed risks of surgery in detail with focus on infection/wound complications, Charcot and diabetes complications. No guarantees were given. All questions fully answered. The patient verbalized understanding and agreed to proceed with surgery. Written consent obtained. Operative findings:: Left ankle instability with tears of the deltoid, ATFL and CFL. Peroneal tendon was thickened and hypertrophic consistent with tears and healing. Synovitis noted around the tendon. PT tendon was also synovitic with some abnormal thickening. Ankle joint had significant arthritis with [id number] deformity. Talus was sclerotic with cystic changes. Subtalar joint impingement with [id number] deformity. Operative note:: On this date and time patient was deemed appropriate surgical candidate. With informed consent signed patient was wheeled from the preoperative holding area to the operating theater and placed on table in normal supine position after anesthesia gave a regional nerve block. Monahan catheter inserted. Left thigh tourniquet applied. IV Ancef infused. Left lower extremity prepped and draped in normal sterile fashion. Left posterior tibial tendon debridement: Attention was directed to the medial ankle where an incision was mapped out over the medial ankle gutter extending to the TN joint. Full-thickness dissection with care to maintain surgical hemostasis and safely retract neurovascular structures. PT tendon was noted to be thickened and hypertrophied. 15 blade and forceps used to sharply excisionally debride synovitic tissue and debride the tendon. A piece of the abnormal tendon was sent to pathology as a specimen. Left peroneal tenosynovectomy: Attention was directed to the lateral ankle where an incision was mapped out over the fibula, lateral ankle gutter extending to the calcaneal cuboid joint. Fibers of the CC joint kept intact. Obvious ankle instability was noted with a positive anterior drawer and tears of the ATFL and CFL. Peroneal tendons were identified and noted to be synovitic. 15 blade and forceps were used to sharply debride the peroneal tendons. Left tibiotalar calcaneal arthrodesis, partial resection of fibula, allograft: Dissection of both the medial and lateral incisions full-thickness down to the level of the bone. The ankle joint and subtalar joint were identified and had significant arthritic deformity with sclerosis and [id number] deformity with cystic changes throughout both joints. There is a large bony arthritic prominence noted to the distal fibula. Rongeur used to resect the piece of the fibula. In standard technique cartilage was removed from ankle and subtalar joint. Subchondral bone plate was fenestrated down to the level of good healthy bleeding bone. Joint was irrigated. No signs of infection. Next due to extensive deformity and defects throughout both joints, allograft bone fibers were inserted into the joint along with augment. Next the ankle joint was reduced and temporarily fixated. The subtalar joint was then reduced and temporarily fixated. Intraoperative fluoroscopy including AP, lateral and calcaneal axial views were used to check the position of reduction which was deemed to be appropriate. In standard technique in accordance with manufacture guidelines a [employer] valor nail was then inserted from the inferior calcaneus up through the subtalar joint and into the ankle. X-ray was utilized throughout the case to confirm position of reduction. The nail was compressed and screws were inserted without complication. Remaining bone graft was then packed around the ankle and subtalar joints. Application of DEBI drain, posterior splint: Deep closure in a running fashion with Vicryl. Due to the extensive incisions and bleeding/hematoma formation potential, DEBI drain was inserted on the lateral incision. Subcutaneous tissue repaired with Vicryl. The skin was reapproximated with nylon and skin shravan. Skin was cleansed. Tourniquet was deflated and immediate hyperemic response was noted to the digits. Xeroform applied to all incisions followed by Betadine soaked gauze. A dry sterile dressing was then applied followed by a below-knee posterior splint. Patient was awoken from anesthesia with vital signs stable neurovascular status intact when transferred to recovery. He appeared to tolerate procedure and anesthesia well without complication. Materials: U[employer] medical valor nail x 150mm (size 11), locking screws x4, Augment x2 (6cc), Biomatrix fibers (10cc) Plan: Admission per hospitalist team for 23-hour observation Patient is to maintain dressing clean dry and intact. Ice (polar pack) behind the left knee and elevate on two pillows. Non weight bearing to the left lower extremity with DME assistance (walker, rolling knee scooter). Incentive spirometer q1h. PT in am for gait training and DME recommendations. DEBI drain mgmt/education. Podiatry will see patient in am for drain evaluation. Likely discharge home tomorrow if no issues overnight. Tourniquet time (min): 100 Condition: stable Disposition: same day Specimens:: Left posterior tibial tendon Complications:: None
--- NOTE | 2023-07-06 15:11 | EXP.POD.CONS ---
History of Present Illness *Admission Date: 07/06/23 *Reason for visit:: Post op left TTC AD *History of present illness: Patient is a 73-year-old male who underwent a left tibiotalar calcaneal arthrodesis today. He was admitted by the hospitalist team for 23-hour observation. Reason for admission: Anesthesia length, pain control, PT evaluation for gait control and DME recommendations, medical management for: Diabetes, CAD, hypertension, hyperlipidemia. No intraoperative or anesthesia complications. At the time of transfer to floor patient was resting comfortably in recovery with vital signs stable neurovascular status intact. [facility] Disclaimer: The information contained in this section may have been updated after the patient was seen, as this information can be updated by other users. Medical History Arthritis CAD (coronary artery disease) Diabetes GERD (gastroesophageal reflux disease) History of tonsillitis HLD (hyperlipidemia) HTN (hypertension) Surgical History History of appendectomy History of cardiac cath History of cholecystectomy History of hernia repair History of knee replacement Family History Family history of heart disease Family history of cancer Family history of diabetes mellitus Social History Smoking Status: Former smoker alcohol intake: former substance use type: denies use current occupational status: retired Travel in the last 8 weeks: Inside the [facility] Meds Home Medications and Allergies Home Medications Medication Instructions Recorded Confirmed Type amlodipine 5 mg tablet 5 mg PO DAILY 04/07/21 07/06/23 History aspirin 81 mg capsule 81 mg PO DAILY 04/07/21 07/06/23 History celecoxib 200 mg capsule 200 mg PO DAILY 04/07/21 07/06/23 History diphenhydramine 25 1 tab PO HS PRN Pain 04/07/21 07/06/23 History mg-acetaminophen 500 mg tablet (Tylenol PM Extra Strength) dulaglutide 0.75 mg/0.5 mL 0.75 ml SQ WEEKLY 04/07/21 07/06/23 History subcutaneous pen injector (Trulicity) losartan 100 1 tab PO DAILY 04/07/21 07/06/23 History mg-hydrochlorothiazide 25 mg tablet metformin 500 mg tablet 500 mg PO DAILY 04/07/21 07/06/23 History ciiroqno-uj-spllb 300 mcg-K 60 1 tab PO DAILY 04/07/21 07/06/23 History mcg-lycop 600 mcg-lutein 300 mcg tablet (Centrum Silver Men) simvastatin 40 mg tablet 40 mg PO DAILY 04/07/21 07/06/23 History potassium chloride 10 mEq 10 meq PO DAILY 08/12/21 07/06/23 History tablet,extended release blood sugar diagnostic (OneTouch #10 ea 04/14/23 07/06/23 History Ultra Test strips) cholestyramine-aspartame 4 gram 1 ea PO DAILY 04/14/23 07/06/23 History oral powder for susp in a packet (Prevalite) ergocalciferol (vitamin D2) 1,250 1,250 mcg PO WEEKLY low vit D 3 04/14/23 07/06/23 Rx mcg (50,000 unit) capsule (Vitamin months #13 caps D2) venlafaxine 75 mg capsule,extended 75 mg PO DAILY 04/14/23 07/06/23 History release 24 hr omeprazole 40 mg capsule,delayed 40 mg PO DAILY 05/05/23 07/06/23 History release New Prescriptions to Start Prescriptions: Allergies Allergy/AdvReac Type Severity Reaction Status Date / Time latex Allergy Rash Verified 07/06/23 07:42 Exam (Inpt) Vital signs and Labs for Last 24 Hours: Temp Pulse Resp BP Pulse Ox O2 Del Method O2 Flow Rate 97.8 F 91 H 17 134/72 93 L Nasal Cannula 2 07/06/23 14:31 07/06/23 14:57 07/06/23 14:57 07/06/23 14:57 07/06/23 14:57 07/06/23 14:57 07/06/23 14:57 Laboratory Results - last 24 hr 07/06/23 07:49: POC Glucose 145 H I & O for Labs for Last 24 Hours: Intake & Output 07/04/23 07/05/23 07/06/23 07/07/23 11:59 11:59 11:59 11:59 Intake Total 2500 / 2500 Balance 2500 / 2500 Weight 211 lb 220 lb 6 oz Constitutional: Present no acute distress Head: Present normocephalic Neck: Present normal inspection Respiratory: Present normal respiratory effort Cardiac: Present pedal pulses present GI: Present soft Extremities: Present normal inspection Comment:: Left lower extremity splint and dressing clean dry and intact. Polar pack behind left knee. CFT within normal limits. Motor function and light touch sensation decreased secondary to nerve block. Skin: Present intact and dry Comment:: DEBI drain intact to the left ankle. Neuro: Present Motor Function Intact, oriented x 3 and moves all extremities Ankle: bilateral: normal inspection Feet/Toes: bilateral: deformity (Pes planus) Pulses: L dorsalis pedis pulse: normal, R dorsalis pedis pulse: normal, L posterior tibial pulse: normal and R posterior tibial pulse: normal CFT: normal: CFT Results Labs Labs: Abnormal lab results 07/06/23 Range/Units 07:49 POC Glucose 145 H (70-110) All other labs normal. Diagnostic results Ankle/Foot x-ray: image reviewed Assessment and Plan *Assessment and plan (1) Osteoarthritis of left ankle and foot: Status: Chronic Category: Medical Code(s): M19.072 - Primary osteoarthritis, left ankle and foot (2) Type 2 diabetes mellitus with diabetic polyneuropathy, without long-term current use of insulin: Status: Acute Category: Medical Code(s): E11.42 - Type 2 diabetes mellitus with diabetic polyneuropathy (3) Tardive dyskinesia: Status: Acute Category: Medical Code(s): G24.01 - Drug induced subacute dyskinesia (4) Status post arthrodesis: Status: Acute Category: Surgical Code(s): Z98.1 - Arthrodesis status Plan Surgery, 07/06/2023: s/p left TTC AD Admission: per Dr Burr Consult: Podiatry -Patient is to maintain dressing clean dry and intact. -Ice (polar pack) behind the left knee and elevate on two pillows. -Non weight bearing to the left lower extremity with DME assistance (walker, rolling knee scooter). -PT in am for gait training and DME recommendations. -Am labs: cbc, cmp. -DEBI drain mgmt/education. -Continue incentive spirometer q1h. -Rx for Percocet 7.5/325 and Valium given. e-Rx given for Keflex 500mg, Zofran and Motrin 800mg. -Podiatry will see patient in am for drain evaluation. -Likely discharge home tomorrow if no issues overnight.
[2023-07-06 15:30] LABS: Appearance,Urine/Cath CLEAR (Clear); Bilirubin,Cath Negative (Negative); Blood, Urine/Cath TRACE-I (Negative); Color,Urine/Cath YELLOW (Yellow); Glucose,Urine/Cath (UA) 2+ (Negative); Ketones,Urine/Cath Negative (Negative); Leukocyte Esterase,Cath Negative (Negative); Nitrate,Cath Negative (Negative); PH,Urine/Cath 7.5 (5.0-8.5); Protein,Urine/Cath Negative (Negative); Urobilinogen,Cath 0.2 EU/dl (0.2)
[2023-07-06 15:45] LABS: RBC,Urine/Cath Occasional # /hpf (0-3)
[2023-07-06] MEDS: humaLOG 100 UNITS/ML 3ML VIAL (SSI) SQ ×2 (16:58→20:49)
--- NOTE | 2023-07-06 17:41 | EXP.HP ---
History of Present Illness *Admission Date: 07/06/23 *Reason for visit:: left ankle pain, status-post surgery *History of present illness: Mr. Rust is a 73-year-old male with history of diabetes, hypertension, Charcot deformity of his left foot. Underwent left tibiotalar calcaneal arthrodesis today. Tolerated procedure well. Received nerve block after procedure. Discussed case with podiatry, request admission for observation overnight given the extent of anesthesia, pain control, PT eval and gait training. Medicine agreed to admit for further management. Patient at this time feels well with no shortness of breath or chest pain. Has no pain secondary to nerve block. at bedside, updated of plan. [facility] Disclaimer: The information contained in this section may have been updated after the patient was seen, as this information can be updated by other users. Medical History Arthritis CAD (coronary artery disease) Diabetes GERD (gastroesophageal reflux disease) History of tonsillitis HLD (hyperlipidemia) HTN (hypertension) Surgical History History of appendectomy History of cardiac cath History of cholecystectomy History of hernia repair History of knee replacement Family History Family history of heart disease Family history of cancer Family history of diabetes mellitus Social History Smoking Status: Former smoker alcohol intake: former substance use type: denies use current occupational status: retired Travel in the last 8 weeks: Inside the [place] Review of Systems Review of Systems Review of systems (narrative): 14 point review of systems performed, pertinent positives and negatives as per HPI Meds Home Medications and Allergies Home Medications Medication Instructions Recorded Confirmed Type amlodipine 5 mg tablet 5 mg PO DAILY 04/07/21 07/06/23 History aspirin 81 mg capsule 81 mg PO DAILY 04/07/21 07/06/23 History celecoxib 200 mg capsule 200 mg PO DAILY 04/07/21 07/06/23 History diphenhydramine 25 1 tab PO HS PRN Pain 04/07/21 07/06/23 History mg-acetaminophen 500 mg tablet (Tylenol PM Extra Strength) dulaglutide 0.75 mg/0.5 mL 0.75 ml SQ WEEKLY 04/07/21 07/06/23 History subcutaneous pen injector (Trulicity) losartan 100 1 tab PO DAILY 04/07/21 07/06/23 History mg-hydrochlorothiazide 25 mg tablet metformin 500 mg tablet 500 mg PO DAILY 04/07/21 07/06/23 History [id number]-gg-[id number] 300 mcg-K 60 1 tab PO DAILY 04/07/21 07/06/23 History mcg-lycop 600 mcg-lutein 300 mcg tablet (Centrum Silver Men) simvastatin 40 mg tablet 40 mg PO DAILY 04/07/21 07/06/23 History potassium chloride 10 mEq 10 meq PO DAILY 08/12/21 07/06/23 History tablet,extended release blood sugar diagnostic (OneTouch #10 ea 04/14/23 07/06/23 History Ultra Test strips) cholestyramine-aspartame 4 gram 1 ea PO DAILY 04/14/23 07/06/23 History oral powder for susp in a packet (Prevalite) ergocalciferol (vitamin D2) 1,250 1,250 mcg PO WEEKLY low vit D 3 04/14/23 07/06/23 Rx mcg (50,000 unit) capsule (Vitamin months #13 caps D2) venlafaxine 75 mg capsule,extended 75 mg PO DAILY 04/14/23 07/06/23 History release 24 hr cephalexin 500 mg capsule 500 mg PO BID 7 days #14 caps 07/06/23 07/06/23 Rx diazepam 5 mg tablet (Valium) 5 mg PO BID PRN muscle spasm 7 07/06/23 07/06/23 Rx days #14 tabs empagliflozin 10 mg tablet 10 mg PO DAILY 07/06/23 07/06/23 History (Jardiance) gabapentin 100 mg capsule 100 mg PO TID PRN nerve pain 10 07/06/23 07/06/23 Rx days #21 caps ketorolac 10 mg tablet 10 mg PO Q6H PRN pain 5 days #20 07/06/23 07/06/23 Rx tabs ondansetron 4 mg disintegrating 4 mg PO Q6H PRN nausea and 07/06/23 07/06/23 Rx tablet vomiting 7 days #28 tabs oxycodone-acetaminophen 7.5 mg-325 1 tab PO Q4H PRN pain 7 days #42 07/06/23 07/06/23 Rx mg tablet tabs pantoprazole 40 mg tablet,delayed 40 mg PO DAILY 07/06/23 07/06/23 History release New Prescriptions to Start Prescriptions: cephalexin 500 mg capsule diazepam 5 mg tablet gabapentin 100 mg capsule ketorolac 10 mg tablet ondansetron 4 mg disintegrating tablet oxycodone-acetaminophen 7.5 mg-325 mg tablet Allergies Allergy/AdvReac Type Severity Reaction Status Date / Time latex Allergy Rash Verified 07/06/23 07:42 Exam Data for Last 24 hours Vital signs and Labs for Last 24 Hours: Temp Pulse Resp BP Pulse Ox O2 Del Method O2 Flow Rate 98.0 F 92 H 16 129/78 93 L Room Air 2 07/06/23 17:00 07/06/23 17:00 07/06/23 17:00 07/06/23 17:00 07/06/23 17:09 07/06/23 17:09 07/06/23 14:58 Laboratory Results - last 24 hr 07/06/23 07:49: POC Glucose 145 H 07/06/23 10:05: Urine Color Yellow, Urine Appearance Clear, Urine pH 7.5, Ur Specific [place] 1.010, Urine Protein Negative, Urine Glucose (UA) 2+, Urine Ketones Negative, Urine Blood Trace-i, Urine Nitrate Negative, Urine Bilirubin Negative, Urine Urobilinogen 0.2, Ur Leukocyte Esterase Negative, Urine RBC Occasional, Urine WBC None, Ur Squamous Epith Cells None, Urine Bacteria None I & O for Last 24 hours: Intake & Output 07/03/23 07/04/23 07/05/23 07/06/23 23:59 23:59 23:59 23:59 Intake Total 2500 / 2500 Balance 2500 / 2500 Weight 95.708 kg 99.96 kg Constitutional Constitutional: no acute distress, obese and cooperative *Routine HEENT Exam Head: Present normocephalic and atraumatic Eye: Present EOMI and PERRL ENT: Present mucous membranes moist *Routine Neck Exam Neck: Present supple *Routine Respiratory Exam Respiratory: Present CTA bilaterally; Absent rhonchi, wheezes or crackles *Routine Cardiovascular Exam Cardiovascular: Present RRR *Routine Abdominal Exam Abdominal: Present soft and normoactive bowel sounds; Absent tenderness or distended *Routine Rectal Exam Rectal:: deferred *Routine Genitalia Exam Genitalia:: deferred *Routine Extremities Exam Extremities: Absent cyanosis, clubbing or edema Comments: Left foot in postsurgical bandage with DEBI drain, scant bloody discharge *Routine Skin Exam Skin: Present intact; Absent cyanosis or erythema *Routine Neurological Exam Neurological: Present alert, oriented X3 and moving all extremities; Absent altered mental status Assessment and Plan *Assessment and plan (1) Charcot's joint, left ankle and foot: Status: Chronic Category: Medical Code(s): M14.672 - Charcot's joint, left ankle and foot (2) Status post arthrodesis: Status: Acute Category: Surgical Code(s): Z98.1 - Arthrodesis status (3) Diabetic foot: Status: Acute Category: Medical Code(s): E11.8 - Type 2 diabetes mellitus with unspecified complications (4) Obesity, Class I, BMI 30-34.9: Status: Chronic Category: Medical Code(s): E66.9 - Obesity, unspecified (5) Type 2 diabetes mellitus with diabetic polyneuropathy, without long-term current use of insulin: Status: Acute Category: Medical Code(s): E11.42 - Type 2 diabetes mellitus with diabetic polyneuropathy (6) Hypertension: Status: Acute Qualifiers: Hypertension type: unspecified Qualified Code(s): I10 - Essential (primary) hypertension Category: Medical Code(s): I10 - Essential (primary) hypertension (7) Hyperlipidemia: Status: Acute Qualifiers: Hyperlipidemia type: unspecified Qualified Code(s): E78.5 - Hyperlipidemia, unspecified Category: Medical Code(s): E78.5 - Hyperlipidemia, unspecified (8) CAD (coronary artery disease): Status: Acute Category: Medical Code(s): I25.10 - Atherosclerotic heart disease of [place] coronary artery without angina pectoris Plan 73-year-old male admitted postop to medicine for observation, pain control, eval by PT. Discussed case with podiatry, request admission for monitoring overnight and gait training by therapy in the morning. Barring any complications, anticipate discharge tomorrow. Problems addressed as follows: This post arthrodesis of left Charcot joint. Diabetic neuropathy -Podiatry consulted, appreciate their recommendations. Status post surgery, patient tolerated procedure well. See op note for full details. Maintain dressing that is clean dry and intact. -Polar pack behind knee and elevate on 2 pillows to decrease pain, nerve block administered in postop setting. -Patient is nonweightbearing on left lower extremity with rolling knee scooter. -PT consulted to assist with gait training in the morning. -CBC, CMP, magnesium ordered for the morning. -DEBI drain for management of surgical wound blood. Will leave in place at discharge. - Percocet 7.5/325 and Valium given. e-Rx given for Keflex 500mg, Zofran and Motrin 800mg. -Podiatry will see patient in am for drain evaluation. -Likely discharge home tomorrow if no issues overnight. -Continue gabapentin 100 g 3 times daily as needed Diabetes: A1c pending. Most recent was 6.5 in February -Continue home metformin 500 mg daily, Jardiance 10 mg daily -Sliding scale insulin with fingersticks ACHS Hypertension: Continue home amlodipine 5 mg daily, losartan 100/HCTZ 25 mg daily Hyperlipidemia: Continue home simvastatin 40 mg daily GERD: Continue pantoprazole 40 mg daily Mood disorder: Continue Effexor 75 mg extended release daily Sleep disorder: To Tylenol 3 at night, will continue diphenhydramine 25 mg nightly Full code Holding anticoagulation in postop setting Diabetic diet
[2023-07-06 18:25] LABS: POC Glucose,Bedside 244 (70-110)
[2023-07-06] MEDS: CEFAZOLIN SODIUM 1 GM in 0.9 % SODIUM CHLORIDE 50 ML IV (18:28)
[2023-07-06] MEDS: KETOROLAC 30MG/ML VIAL 30 MG IV (18:29)
[2023-07-06] MEDS: diphenhydrAMINE 25MG CAPSULE 25 MG PO (20:44)
[2023-07-06 20:52] LABS: POC Glucose,Bedside 277 (70-110)
[2023-07-07] VITALS: BP 126/64; PULSE 85; RESP 18; TEMP 36.8; O2SAT 91
[2023-07-07] MEDS: KETOROLAC 30MG/ML VIAL 30 MG IV (01:18)
[2023-07-07] MEDS: CEFAZOLIN SODIUM 1 GM in 0.9 % SODIUM CHLORIDE 50 ML IV ×2 (01:19→09:24)
[2023-07-07] MEDS: diazePAM 5MG TABLET 5 MG PO (01:24)
[2023-07-07 04:00] VITALS: BP 128/68; PULSE 74; RESP 18; TEMP 36.5; O2SAT 93; BMI 34.5
[2023-07-07] MEDS: humaLOG 100 UNITS/ML 3ML VIAL (SSI) SQ (06:08)
[2023-07-07 06:10] LABS: POC Glucose,Bedside 166 (70-110)
--- NOTE | 2023-07-07 06:40 | PC.NURSE ---
PT IS AO X4 ON RA VITALS WNL AND STABLE. DRESSING TO LLE CDI, HAS NOT VOICED ANY COMPLAINTS TO STAFF. PT HAS SCUD IN PLACE TO RLE. PT WAS ABLE TO AMBULATE WITH WALKER, REMAINING NON WEIGHT BEARING TO LLE. TO BEDSIDE COMMODE, TOLERATING WELL. CALL LIGHT WITHIN REACH.
--- NOTE | 2023-07-07 06:51 | EXP.POD.CONS ---
Documented by User: Marion Mauro Killian, STUFFING MACHINE OPERATOR 07/07/23 08:14 History of Present Illness *Admission Date: 07/06/23 *History of present illness: Mr. Rust is a 73-year-old male with history of diabetes, hypertension, Charcot deformity of his left foot. Underwent left tibiotalar calcaneal arthrodesis today. Tolerated procedure well. Received nerve block after procedure. Discussed case with podiatry, request admission for observation overnight given the extent of anesthesia, pain control, PT eval and gait training. Medicine agreed to admit for further management. Patient at this time feels well with no shortness of breath or chest pain. Has no pain secondary to nerve block. at bedside, updated of plan. [facility] Disclaimer: The information contained in this section may have been updated after the patient was seen, as this information can be updated by other users. Medical History Arthritis CAD (coronary artery disease) Diabetes GERD (gastroesophageal reflux disease) History of tonsillitis HLD (hyperlipidemia) HTN (hypertension) Surgical History History of appendectomy History of cardiac cath History of cholecystectomy History of hernia repair History of knee replacement Family History Family history of heart disease Family history of cancer Family history of diabetes mellitus Social History Smoking Status: Former smoker alcohol intake: former substance use type: denies use current occupational status: retired Travel in the last 8 weeks: Inside the [facility] Meds Home Medications and Allergies Home Medications Medication Instructions Recorded Confirmed Type amlodipine 5 mg tablet 5 mg PO DAILY 04/07/21 07/06/23 History aspirin 81 mg capsule 81 mg PO DAILY 04/07/21 07/06/23 History celecoxib 200 mg capsule 200 mg PO DAILY 04/07/21 07/06/23 History diphenhydramine 25 1 tab PO HS PRN Pain 04/07/21 07/06/23 History mg-acetaminophen 500 mg tablet (Tylenol PM Extra Strength) dulaglutide 0.75 mg/0.5 mL 0.75 ml SQ WEEKLY 04/07/21 07/06/23 History subcutaneous pen injector (Trulicity) losartan 100 1 tab PO DAILY 04/07/21 07/06/23 History mg-hydrochlorothiazide 25 mg tablet metformin 500 mg tablet 500 mg PO BID 04/07/21 07/07/23 History [id number]-or-kaqkv 300 mcg-K 60 1 tab PO DAILY 04/07/21 07/06/23 History mcg-lycop 600 mcg-lutein 300 mcg tablet (Centrum Silver Men) simvastatin 40 mg tablet 40 mg PO DAILY 04/07/21 07/06/23 History potassium chloride 10 mEq 10 meq PO DAILY 08/12/21 07/06/23 History tablet,extended release blood sugar diagnostic (OneTouch #10 ea 04/14/23 07/06/23 History Ultra Test strips) cholestyramine-aspartame 4 gram 1 ea PO DAILY 04/14/23 07/06/23 History oral powder for susp in a packet (Prevalite) ergocalciferol (vitamin D2) 1,250 1,250 mcg PO WEEKLY low vit D 3 04/14/23 07/06/23 Rx mcg (50,000 unit) capsule (Vitamin months #13 caps D2) venlafaxine 75 mg capsule,extended 75 mg PO DAILY 04/14/23 07/06/23 History release 24 hr cephalexin 500 mg capsule 500 mg PO BID 7 days #14 caps 07/06/23 07/06/23 Rx diazepam 5 mg tablet (Valium) 5 mg PO BID PRN muscle spasm 7 07/06/23 07/06/23 Rx days #14 tabs empagliflozin 10 mg tablet 10 mg PO DAILY 07/06/23 07/06/23 History (Jardiance) gabapentin 100 mg capsule 100 mg PO TID PRN nerve pain 10 07/06/23 07/06/23 Rx days #21 caps ketorolac 10 mg tablet 10 mg PO Q6H PRN pain 5 days #20 07/06/23 07/06/23 Rx tabs ondansetron 4 mg disintegrating 4 mg PO Q6H PRN nausea and 07/06/23 07/06/23 Rx tablet vomiting 7 days #28 tabs oxycodone-acetaminophen 7.5 mg-325 1 tab PO Q4H PRN pain 7 days #42 07/06/23 07/06/23 Rx mg tablet tabs pantoprazole 40 mg tablet,delayed 40 mg PO DAILY 07/06/23 07/06/23 History release New Prescriptions to Start Prescriptions: cephalexin 500 mg capsule diazepam 5 mg tablet gabapentin 100 mg capsule ketorolac 10 mg tablet ondansetron 4 mg disintegrating tablet oxycodone-acetaminophen 7.5 mg-325 mg tablet Allergies Allergy/AdvReac Type Severity Reaction Status Date / Time latex Allergy Rash Verified 07/06/23 07:42 Exam (Inpt) Vital signs and Labs for Last 24 Hours: Temp Pulse Resp BP Pulse Ox O2 Del Method O2 Flow Rate 97.7 F 74 18 128/68 93 L Room Air 2 07/07/23 04:00 07/07/23 04:00 07/07/23 04:00 07/07/23 04:00 07/07/23 04:00 07/07/23 06:38 07/06/23 14:58 Laboratory Results - last 24 hr 07/06/23 07:49: POC Glucose 145 H 07/06/23 10:05: Urine Color Yellow, Urine Appearance Clear, Urine pH 7.5, Ur Specific [place] 1.010, Urine Protein Negative, Urine Glucose (UA) 2+, Urine Ketones Negative, Urine Blood Trace-i, Urine Nitrate Negative, Urine Bilirubin Negative, Urine Urobilinogen 0.2, Ur Leukocyte Esterase Negative, Urine RBC Occasional, Urine WBC None, Ur Squamous Epith Cells None, Urine Bacteria None 07/06/23 16:47: POC Glucose 244 H 07/06/23 20:45: POC Glucose 277 H 07/07/23 06:03: POC Glucose 166 H I & O for Labs for Last 24 Hours: Intake & Output 07/04/23 07/05/23 07/06/23 07/07/23 23:59 23:59 23:59 23:59 Intake Total 2980 / 2980 0 / 0 Output Total 475 / 475 590 / 590 Balance 2505 / 2505 -590 / -590 Weight 211 lb 220 lb 6 oz 220 lb 1.6 oz Constitutional: Present no acute distress and cooperative Head: Present normocephalic Neck: Present normal inspection and trachea midline Respiratory: Present normal respiratory effort and able to speak in complete sentences Cardiac: Present pedal pulses present (Right pedal pulse intact, Left pulse unable to assess due to surgical dressing.) GI: Present soft Rectal (male): Present deferred (male): Present deferred Comment:: LLE surgical dressing intact, DEBI-drain, polar pack behind Left knee. Skin: Present intact, dry and warm Neuro: Present alert, awake, oriented x 3 and moves all extremities Ankle: left: decreased ROM (S/P left TTC AD ) and right: normal inspection Feet/Toes: left: decreased ROM and bilateral: normal inspection Pulses: R dorsalis pedis pulse: normal and R posterior tibial pulse: normal CFT: normal: CFT Results Labs 07/07/23 06:49 07/07/23 06:49 Labs: Abnormal lab results 07/06/23 07/06/23 07/06/23 Range/Units 07:49 16:47 20:45 POC Glucose 145 H 244 H 277 H (70-110) 07/07/23 Range/Units 06:03 POC Glucose 166 H (70-110) All other labs normal. Assessment and Plan *Assessment and plan (1) Osteoarthritis of left ankle and foot: Status: Chronic Category: Medical Code(s): M19.072 - Primary osteoarthritis, left ankle and foot (2) Type 2 diabetes mellitus with diabetic polyneuropathy, without long-term current use of insulin: Status: Acute Category: Medical Code(s): E11.42 - Type 2 diabetes mellitus with diabetic polyneuropathy (3) Tardive dyskinesia: Status: Acute Category: Medical Code(s): G24.01 - Drug induced subacute dyskinesia (4) Status post arthrodesis: Status: Acute Category: Surgical Code(s): Z98.1 - Arthrodesis status Plan Surgery, 07/06/2023: s/p left TTC AD Admission: per Dr Burr Consult: Podiatry 07/07/23: POD#1 -Patient awake and resting in bed this morning, states no problem throughout the night, he did not sleep much but he was not in any pain. -Patient unable to move toes,but has some sensation returned. -Patient is to maintain dressing clean dry and intact. -Ice (polar pack) behind the left knee and elevate on two pillows. -Non weight bearing to the left lower extremity with DME assistance (walker, rolling knee scooter). -Am labs: cbc, cmp- pending -DEBI drain mgmt/education. -Drain-currently intact approx. 25cc of drainage in the bulb. Plan to keep in place at discharge and plan to remove on his first office visit. -Continue incentive spirometer q1h. -Rx for Percocet 7.5/325 and Valium given. e-Rx given for Keflex 500mg, Zofran and Motrin 800mg. -Patient has a rolling knee scooter and wheelchair at home. -Plan for discharge this morning after PT eval for gait training and DME recommendations. Documented by User: Laya Moreno DPM 07/07/23 09:18 History of Present Illness *Reason for visit:: Post op ankle surgery *History of present illness: Mr. Rust is a 73-year-old male with history of diabetes, hypertension, Charcot deformity of his left foot. Underwent left tibiotalar calcaneal arthrodesis 07/06/23. Tolerated procedure well. Received nerve block after procedure. Discussed case with podiatry, request admission for observation overnight given the extent of anesthesia, pain control, PT eval and gait training. Medicine agreed to admit for further management. Patient at this time feels well with no shortness of breath or chest pain. Has no pain secondary to nerve block. at bedside, updated of plan. 07/07/23: Patient is resting comfortably in the bed with no complaints. DEBI drain intact with some output. Has polar pack to left lower extremity. He denies nausea/vomiting, fever/chills, shortness of breath/chest pain. Patient would like to go home today. [facility] Medical History Arthritis CAD (coronary artery disease) Diabetes GERD (gastroesophageal reflux disease) History of tonsillitis HLD (hyperlipidemia) HTN (hypertension) Surgical History History of appendectomy History of cardiac cath History of cholecystectomy History of hernia repair History of knee replacement Family History Family history of heart disease Family history of cancer Family history of diabetes mellitus Social History Smoking Status: Former smoker alcohol intake: former substance use type: denies use current occupational status: retired Travel in the last 8 weeks: Inside the [facility] Meds Home Medications and Allergies Home Medications Medication Instructions Recorded Confirmed Type amlodipine 5 mg tablet 5 mg PO DAILY 04/07/21 07/06/23 History aspirin 81 mg capsule 81 mg PO DAILY 04/07/21 07/06/23 History celecoxib 200 mg capsule 200 mg PO DAILY 04/07/21 07/06/23 History diphenhydramine 25 1 tab PO HS PRN Pain 04/07/21 07/06/23 History mg-acetaminophen 500 mg tablet (Tylenol PM Extra Strength) dulaglutide 0.75 mg/0.5 mL 0.75 ml SQ WEEKLY 04/07/21 07/06/23 History subcutaneous pen injector (Trulicity) losartan 100 1 tab PO DAILY 04/07/21 07/06/23 History mg-hydrochlorothiazide 25 mg tablet metformin 500 mg tablet 500 mg PO BID 04/07/21 07/07/23 History [id number]-dv-ytjhb 300 mcg-K 60 1 tab PO DAILY 04/07/21 07/06/23 History mcg-lycop 600 mcg-lutein 300 mcg tablet (Centrum Silver Men) simvastatin 40 mg tablet 40 mg PO DAILY 04/07/21 07/06/23 History potassium chloride 10 mEq 10 meq PO DAILY 08/12/21 07/06/23 History tablet,extended release blood sugar diagnostic (OneTouch #10 ea 04/14/23 07/06/23 History Ultra Test strips) cholestyramine-aspartame 4 gram 1 ea PO DAILY 04/14/23 07/06/23 History oral powder for susp in a packet (Prevalite) ergocalciferol (vitamin D2) 1,250 1,250 mcg PO WEEKLY low vit D 3 04/14/23 07/06/23 Rx mcg (50,000 unit) capsule (Vitamin months #13 caps D2) venlafaxine 75 mg capsule,extended 75 mg PO DAILY 04/14/23 07/06/23 History release 24 hr cephalexin 500 mg capsule 500 mg PO BID 7 days #14 caps 07/06/23 07/06/23 Rx diazepam 5 mg tablet (Valium) 5 mg PO BID PRN muscle spasm 7 07/06/23 07/06/23 Rx days #14 tabs empagliflozin 10 mg tablet 10 mg PO DAILY 07/06/23 07/06/23 History (Jardiance) gabapentin 100 mg capsule 100 mg PO TID PRN nerve pain 10 07/06/23 07/06/23 Rx days #21 caps ketorolac 10 mg tablet 10 mg PO Q6H PRN pain 5 days #20 07/06/23 07/06/23 Rx tabs ondansetron 4 mg disintegrating 4 mg PO Q6H PRN nausea and 07/06/23 07/06/23 Rx tablet vomiting 7 days #28 tabs oxycodone-acetaminophen 7.5 mg-325 1 tab PO Q4H PRN pain 7 days #42 07/06/23 07/06/23 Rx mg tablet tabs pantoprazole 40 mg tablet,delayed 40 mg PO DAILY 07/06/23 07/06/23 History release New Prescriptions to Start Prescriptions: cephalexin 500 mg capsule diazepam 5 mg tablet gabapentin 100 mg capsule ketorolac 10 mg tablet ondansetron 4 mg disintegrating tablet oxycodone-acetaminophen 7.5 mg-325 mg tablet Allergies Allergy/AdvReac Type Severity Reaction Status Date / Time latex Allergy Rash Verified 07/06/23 07:42 Results Labs 07/07/23 06:49 07/07/23 06:49 Diagnostic results Ankle/Foot x-ray: report reviewed and image reviewed Assessment and Plan *Assessment and plan (1) Osteoarthritis of left ankle and foot: Status: Chronic Category: Medical Code(s): M19.072 - Primary osteoarthritis, left ankle and foot (2) Type 2 diabetes mellitus with diabetic polyneuropathy, without long-term current use of insulin: Status: Acute Category: Medical Code(s): E11.42 - Type 2 diabetes mellitus with diabetic polyneuropathy (3) Tardive dyskinesia: Status: Acute Category: Medical Code(s): G24.01 - Drug induced subacute dyskinesia (4) Status post arthrodesis: Status: Acute Category: Surgical Code(s): Z98.1 - Arthrodesis status Plan Surgery, 07/06/2023: s/p left TTC AD Admission: per Dr Burr Consult: Podiatry 07/07/23: POD#1 -Labs, xrays reviewed and discussed with patient. -Patient awake and resting in bed this morning, states no problem throughout the night, he did not sleep much but he was not in any pain. -Patient able to move toes a little, and has some sensation returned. -Patient is to maintain dressing clean dry and intact. -Ice (polar pack) behind the left knee and elevate on two pillows. -Non weight bearing to the left lower extremity with DME assistance (walker, rolling knee scooter). -Am labs: cbc, cmp reviewed. -DEBI drain mgmt/education. -Drain-currently intact approx. 25cc of drainage in the bulb. Plan to keep in place at discharge and plan to remove on his first office visit. -Continue incentive spirometer q1h. -Rx for Percocet 7.5/325 and Valium given. e-Rx given for Keflex 500mg, Zofran and Motrin 800mg. -[facility] for meds to bed. -Recommend aspirin for DVT ppx post op. -Patient has a rolling knee scooter and wheelchair at home. -Will need walker for short distances bedroom to bathroom, etc. -Plan for discharge this morning after PT eval for gait training and DME recommendations. -Plan of care was discussed with hospitalist Dr. Burr. -Follow up outpt with Dr Moreno next week as scheduled.
--- NOTE | 2023-07-07 07:21 | P.CONS_ITS ---
History of Present Illness *Admission Date: 07/06/23 *History of present illness: Mr. Rust is a 73-year-old male with history of diabetes, hypertension, Charcot deformity of his left foot. Underwent left tibiotalar calcaneal arthrodesis today. Tolerated procedure well. Received nerve block after procedure. Discussed case with podiatry, request admission for observation overnight given the extent of anesthesia, pain control, PT eval and gait training. Medicine agreed to admit for further management. Patient at this time feels well with no shortness of breath or chest pain. Has no pain secondary to nerve block. at bedside, updated of plan. [facility] Disclaimer: The information contained in this section may have been updated after the patient was seen, as this information can be updated by other users. Medical History Arthritis CAD (coronary artery disease) Diabetes GERD (gastroesophageal reflux disease) History of tonsillitis HLD (hyperlipidemia) HTN (hypertension) Surgical History History of appendectomy History of cardiac cath History of cholecystectomy History of hernia repair History of knee replacement Family History Family history of heart disease Family history of cancer Family history of diabetes mellitus Social History Smoking Status: Former smoker alcohol intake: former substance use type: denies use current occupational status: retired Travel in the last 8 weeks: Inside the [facility] Meds Home Medications and Allergies Home Medications Medication Instructions Recorded Confirmed Type amlodipine 5 mg tablet 5 mg PO DAILY 04/07/21 07/06/23 History aspirin 81 mg capsule 81 mg PO DAILY 04/07/21 07/06/23 History celecoxib 200 mg capsule 200 mg PO DAILY 04/07/21 07/06/23 History diphenhydramine 25 1 tab PO HS PRN Pain 04/07/21 07/06/23 History mg-acetaminophen 500 mg tablet (Tylenol PM Extra Strength) dulaglutide 0.75 mg/0.5 mL 0.75 ml SQ WEEKLY 04/07/21 07/06/23 History subcutaneous pen injector (Trulicity) losartan 100 1 tab PO DAILY 04/07/21 07/06/23 History mg-hydrochlorothiazide 25 mg tablet metformin 500 mg tablet 500 mg PO DAILY 04/07/21 07/06/23 History bnugykif-yv-efbco 300 mcg-K 60 1 tab PO DAILY 04/07/21 07/06/23 History mcg-lycop 600 mcg-lutein 300 mcg tablet (Centrum Silver Men) simvastatin 40 mg tablet 40 mg PO DAILY 04/07/21 07/06/23 History potassium chloride 10 mEq 10 meq PO DAILY 08/12/21 07/06/23 History tablet,extended release blood sugar diagnostic (OneTouch #10 ea 04/14/23 07/06/23 History Ultra Test strips) cholestyramine-aspartame 4 gram 1 ea PO DAILY 04/14/23 07/06/23 History oral powder for susp in a packet (Prevalite) ergocalciferol (vitamin D2) 1,250 1,250 mcg PO WEEKLY low vit D 3 04/14/23 07/06/23 Rx mcg (50,000 unit) capsule (Vitamin months #13 caps D2) venlafaxine 75 mg capsule,extended 75 mg PO DAILY 04/14/23 07/06/23 History release 24 hr cephalexin 500 mg capsule 500 mg PO BID 7 days #14 caps 07/06/23 07/06/23 Rx diazepam 5 mg tablet (Valium) 5 mg PO BID PRN muscle spasm 7 07/06/23 07/06/23 Rx days #14 tabs empagliflozin 10 mg tablet 10 mg PO DAILY 07/06/23 07/06/23 History (Jardiance) gabapentin 100 mg capsule 100 mg PO TID PRN nerve pain 10 07/06/23 07/06/23 Rx days #21 caps ketorolac 10 mg tablet 10 mg PO Q6H PRN pain 5 days #20 07/06/23 07/06/23 Rx tabs ondansetron 4 mg disintegrating 4 mg PO Q6H PRN nausea and 07/06/23 07/06/23 Rx tablet vomiting 7 days #28 tabs oxycodone-acetaminophen 7.5 mg-325 1 tab PO Q4H PRN pain 7 days #42 07/06/23 07/06/23 Rx mg tablet tabs pantoprazole 40 mg tablet,delayed 40 mg PO DAILY 07/06/23 07/06/23 History release New Prescriptions to Start Prescriptions: cephalexin 500 mg capsule diazepam 5 mg tablet gabapentin 100 mg capsule ketorolac 10 mg tablet ondansetron 4 mg disintegrating tablet oxycodone-acetaminophen 7.5 mg-325 mg tablet Allergies Allergy/AdvReac Type Severity Reaction Status Date / Time latex Allergy Rash Verified 07/06/23 07:42 Exam (Inpt) Vital signs and Labs for Last 24 Hours: Temp Pulse Resp BP Pulse Ox O2 Del Method O2 Flow Rate 97.7 F 74 18 128/68 93 L Room Air 2 07/07/23 04:00 07/07/23 04:00 07/07/23 04:00 07/07/23 04:00 07/07/23 04:00 07/07/23 06:38 07/06/23 14:58 Laboratory Results - last 24 hr 07/06/23 07:49: POC Glucose 145 H 07/06/23 10:05: Urine Color Yellow, Urine Appearance Clear, Urine pH 7.5, Ur Specific [place] 1.010, Urine Protein Negative, Urine Glucose (UA) 2+, Urine Ketones Negative, Urine Blood Trace-i, Urine Nitrate Negative, Urine Bilirubin Negative, Urine Urobilinogen 0.2, Ur Leukocyte Esterase Negative, Urine RBC Occa sional, Urine WBC None, Ur Squamous Epith Cells None, Urine Bacteria None 07/06/23 16:47: POC Glucose 244 H 07/06/23 20:45: POC Glucose 277 H 07/07/23 06:03: POC Glucose 166 H I & O for Labs for Last 24 Hours: Intake & Output 07/04/23 07/05/23 07/06/23 07/07/23 23:59 23:59 23:59 23:59 Intake Total 2980 / 2980 0 / 0 Output Total 475 / 475 590 / 590 Balance 2505 / 2505 -590 / -590 Weight 211 lb 220 lb 6 oz 220 lb 1.6 oz Results Labs 07/07/23 06:49 Labs: Abnormal lab results 07/06/23 07/06/23 07/06/23 Range/Units 07:49 16:47 20:45 POC Glucose 145 H 244 H 277 H (70-110) 07/07/23 Range/Units 06:03 POC Glucose 166 H (70-110) All other labs normal.
[2023-07-07 07:24] LABS: Chloride 103 mmol/L (98-107); Potassium 3.6 mmoL/L (3.5-5.1); Sodium 136 mmol/L (136-145)
[2023-07-07 07:26] LABS: Alanine Aminotransferase 37 U/L (12-78); Aspartate Amino Transferase 43 U/L (17-59); Blood Urea Nitrogen 20 mg/dl (9-20); Creatinine Clearance Estimated 70 mL/min (50-200); Estimated Glomerular Filt Rate 54 ml/min (>60); GFR (African American) 65 ML/MIN (>60)
[2023-07-07 07:27] LABS: Albumin Level 3.9 g/dl (3.5-5.0); Albumin/Globulin Ratio 1.4 (1.1-1.8); Alkaline Phosphatase 80 U/L (38-126); Anion Gap 9.6 mEq/L (5-15); Bilirubin,Total 0.8 mg/dl (0.2-1.3); Carbon Dioxide 27 mmol/L (22.0-30.0); Globulin 2.8 g/dL (1.3-3.2); Glucose 174 mg/dl (74-100); Magnesium 2.1 mg/dl (1.6-2.3); Total Protein,Serum 6.7 g/dl (6.3-8.2)
[2023-07-07 07:38] LABS: Basophils % 0.2 % (0.1-2.0); Hematocrit 39.2 % (42.0-52.0); Hemoglobin 12.9 g/dL (14.1-18.0); Lymphocytes # 1.2 K/mm3 (0.7-4.5); Lymphocytes % 8.5 % (10-50); Mean Corpuscular Hemoglobin 27.5 pg (27.0-31.2); Mean Corpuscular Volume 83.4 fl (80-94); Mean Platelet Volume 8.5 fl (7.4-10.4); Monocytes % 7.2 % (1.7-9.3); Neutrophils # 11.7 K/mm3 (1.8-7.8); Neutrophils % 84.1 % (37.0-80.0); Platelet Count 193 K/mm3 (142-424); White Blood Count 13.9 K/mm3 (4.8-10.8)
[2023-07-07 08:00] VITALS: BP 121/66; PULSE 73; RESP 18; TEMP 36.8; O2SAT 94
--- NOTE | 2023-07-07 08:44 | EXP.DC.SUM ---
General Admission date:: 07/06/23 Discharge date: 07/07/23 HPI HPI HPI: Mr. Rust is a 73-year-old male with history of diabetes, hypertension, Charcot deformity of his left foot. Underwent left tibiotalar calcaneal arthrodesis 07/06/23. Tolerated procedure well. Received nerve block after procedure. Discussed case with podiatry, request admission for observation overnight given the extent of anesthesia, pain control, PT eval and gait training. Medicine agreed to admit for further management. Patient at this time feels well with no shortness of breath or chest pain. Has no pain secondary to nerve block. at bedside, updated of plan. Hospital Course Hospital Course Hospital Course: 73-year-old male admitted postop to medicine for observation, pain control, eval by PT. Discussed case with podiatry, request admission for monitoring overnight and gait training by therapy in the morning. Barring any complications, anticipate discharge tomorrow. Problems addressed as follows: This post arthrodesis of left Charcot joint. Diabetic neuropathy -Podiatry consulted, appreciate their recommendations. Status post surgery, patient tolerated procedure well. See op note for full details. Maintain dressing that is clean dry and intact. Patient is neurovascularly intact in the foot, so sensation is returned this morning. Does complain of not sleeping well however. States this is not uncommon for him after surgical interventions and anesthesia. Continue polar pack behind left knee and elevate the foot daily. Remain nonweightbearing left lower extremity with DME assistance including walker and rolling knee scooter. Plan to leave DEBI drain in place. Podiatry educated spouse on management. Plan to keep in place until first office visit with planned removal at that time. Prescription for Percocet and Valium sent by podiatry for pain and muscle spasm. Continue Keflex 500 mg per order from podiatry. Therapy evaluated patient and performed gait training and DME recommendations. Continue gabapentin 100 g 3 times daily as needed Diabetes: A1c 6.7 on admission, appears to have good control. Continue home metformin 500 mg daily, Jardiance 10 mg daily. Hypertension: Continue home amlodipine 5 mg daily, losartan 100/HCTZ 25 mg daily Hyperlipidemia: Continue home simvastatin 40 mg daily GERD: Continue pantoprazole 40 mg daily Mood disorder: Continue Effexor 75 mg extended release daily Sleep disorder: Continue Tylenol PM nightly Stable for discharge home. Podiatry evaluated on morning of discharge. Exam Data for Last 24 hours Vital signs and Labs for Last 24 Hours: Temp Pulse Resp BP Pulse Ox O2 Del Method O2 Flow Rate 98.2 F 73 18 121/66 94 L Room Air 2 07/07/23 08:00 07/07/23 08:00 07/07/23 08:00 07/07/23 08:00 07/07/23 08:00 07/07/23 08:00 07/06/23 14:58 Laboratory Results - last 24 hr 07/06/23 07:49: POC Glucose 145 H 07/06/23 10:05: Urine Color Yellow, Urine Appearance Clear, Urine pH 7.5, Ur Specific [place] 1.010, Urine Protein Negative, Urine Glucose (UA) 2+, Urine Ketones Negative, Urine Blood Trace-i, Urine Nitrate Negative, Urine Bilirubin Negative, Urine Urobilinogen 0.2, Ur Leukocyte Esterase Negative, Urine RBC Occasional, Urine WBC None, Ur Squamous Epith Cells None, Urine Bacteria None 07/06/23 16:47: POC Glucose 244 H 07/06/23 20:45: POC Glucose 277 H 07/07/23 06:03: POC Glucose 166 H 07/07/23 06:49: WBC 13.9 H, RBC 4.70, Hgb 12.9 L, Hct 39.2 L, MCV 83.4, MCH 27.5, MCHC 33.0, RDW 15.0, Plt Count 193, MPV 8.5, Neut % (Auto) 84.1 H, Lymph % (Auto) 8.5 L, [place] % (Auto) 7.2, Eos % (Auto) 0.0 L, Baso % (Auto) 0.2, Neut # (Auto) 11.7 H, Lymph # (Auto) 1.2, [place] # (Auto) 1.0, Eos # (Auto) 0.0, Baso # (Auto) 0.0, Sodium 136, Potassium 3.6, Chloride 103, Carbon Dioxide 27, Anion Gap 9.6, BUN 20, Creatinine 1.30 H, Estimated Creat Clear 70, Estimated GFR 54 L, Est GFR ( Amer) 65, Glucose 174 H, Calcium 9.0, Magnesium 2.1, Total Bilirubin 0.8, AST 43, ALT 37, Alkaline Phosphatase 80, Total Protein 6.7, Albumin 3.9, Globulin 2.8, Albumin/Globulin Ratio 1.4 I & O for Last 24 hours: Intake & Output 07/04/23 07/05/23 07/06/23 07/07/23 23:59 23:59 23:59 23:59 Intake Total 2980 / 2980 0 / 0 Output Total 475 / 1025 590 / 590 Balance 2505 / 1955 -590 / -590 Weight 95.708 kg 99.96 kg 99.836 kg Constitutional Constitutional: no acute distress, obese, chronically ill appearing and cooperative *Routine HEENT Exam Head: Present normocephalic Eye: Present EOMI and PERRL ENT: Present mucous membranes moist *Routine Neck Exam Neck: Present supple; Absent lymphadenopathy *Routine Respiratory Exam Respiratory: Present CTA bilaterally; Absent rhonchi, wheezes or crackles *Routine Cardiovascular Exam Cardiovascular: Present RRR *Routine Abdominal Exam Abdominal: Present soft and normoactive bowel sounds; Absent tenderness *Routine Rectal Exam Patient deferred: visual exam *Routine Exam Patient deferred: penile exam *Routine Extremities Exam Extremities: Absent cyanosis, clubbing or edema Comments: left foot in post surgical wrap, DEBI in place with bloody drainage. *Routine Skin Exam Skin: Present warm; Absent rash *Routine Neurological Exam Neurological: Present alert, oriented X3 and moving all extremities; Absent altered mental status Results Data Completed and Pending Labs on day of discharge: Labs from last 24 hours 07/07/23 07/07/23 07/06/23 06:49 06:03 20:45 WBC 13.9 H RBC 4.70 Hgb 12.9 L Hct 39.2 L MCV 83.4 MCH 27.5 MCHC 33.0 RDW 15.0 Plt Count 193 MPV 8.5 Neut % (Auto) 84.1 H Lymph % (Auto) 8.5 L [place] % (Auto) 7.2 Eos % (Auto) 0.0 L Baso % (Auto) 0.2 Neut # (Auto) 11.7 H Lymph # (Auto) 1.2 [place] # (Auto) 1.0 Eos # (Auto) 0.0 Baso # (Auto) 0.0 Sodium 136 Potassium 3.6 Chloride 103 Carbon Dioxide 27 Anion Gap 9.6 BUN 20 Creatinine 1.30 H Estimated Creat Clear 70 Estimated GFR 54 L Est GFR ( Amer) 65 Glucose 174 H POC Glucose 166 H 277 H Calcium 9.0 Magnesium 2.1 Total Bilirubin 0.8 AST 43 ALT 37 Alkaline Phosphatase 80 Total Protein 6.7 Albumin 3.9 Globulin 2.8 Albumin/Globulin Ratio 1.4 Urine Color Urine Appearance Urine pH Ur Specific [place] Urine Protein Urine Glucose (UA) Urine Ketones Urine Blood Urine Nitrate Urine Bilirubin Urine Urobilinogen Ur Leukocyte Esterase Urine RBC Urine WBC Ur Squamous Epith Cells Urine Bacteria 07/06/23 07/06/23 07/06/23 16:47 10:05 07:49 WBC RBC Hgb Hct MCV MCH MCHC RDW Plt Count MPV Neut % (Auto) Lymph % (Auto) [place] % (Auto) Eos % (Auto) Baso % (Auto) Neut # (Auto) Lymph # (Auto) [place] # (Auto) Eos # (Auto) Baso # (Auto) Sodium Potassium Chloride Carbon Dioxide Anion Gap BUN Creatinine Estimated Creat Clear Estimated GFR Est GFR ( Amer) Glucose POC Glucose 244 H 145 H Calcium Magnesium Total Bilirubin AST ALT Alkaline Phosphatase Total Protein Albumin Globulin Albumin/Globulin Ratio Urine Color Yellow Urine Appearance Clear Urine pH 7.5 Ur Specific [place] 1.010 Urine Protein Negative Urine Glucose (UA) 2+ Urine Ketones Negative Urine Blood Trace-i Urine Nitrate Negative Urine Bilirubin Negative Urine Urobilinogen 0.2 Ur Leukocyte Esterase Negative Urine RBC Occasional Urine WBC None Ur Squamous Epith Cells None Urine Bacteria None DS: Diagnosis Discharge Diagnosis (1) Osteoarthritis of left ankle and foot: Status: Chronic Code(s): M19.072 - Primary osteoarthritis, left ankle and foot (2) Type 2 diabetes mellitus with diabetic polyneuropathy, without long-term current use of insulin: Status: Acute Code(s): E11.42 - Type 2 diabetes mellitus with diabetic polyneuropathy (3) Tardive dyskinesia: Status: Acute Code(s): G24.01 - Drug induced subacute dyskinesia (4) Status post arthrodesis: Status: Acute Code(s): Z98.1 - Arthrodesis status Meds Home Medications and Allergies Home Medications Medication Instructions Recorded Confirmed Type amlodipine 5 mg tablet 5 mg PO DAILY 04/07/21 07/06/23 History aspirin 81 mg capsule 81 mg PO DAILY 04/07/21 07/06/23 History celecoxib 200 mg capsule 200 mg PO DAILY 04/07/21 07/06/23 History diphenhydramine 25 1 tab PO HS PRN Pain 04/07/21 07/06/23 History mg-acetaminophen 500 mg tablet (Tylenol PM Extra Strength) dulaglutide 0.75 mg/0.5 mL 0.75 ml SQ WEEKLY 04/07/21 07/06/23 History subcutaneous pen injector (Trulicity) losartan 100 1 tab PO DAILY 04/07/21 07/06/23 History mg-hydrochlorothiazide 25 mg tablet metformin 500 mg tablet 500 mg PO BID 04/07/21 07/07/23 History ifrwtamp-yk-pxdzc 300 mcg-K 60 1 tab PO DAILY 04/07/21 07/06/23 History mcg-lycop 600 mcg-lutein 300 mcg tablet (Centrum Silver Men) simvastatin 40 mg tablet 40 mg PO DAILY 04/07/21 07/06/23 History potassium chloride 10 mEq 10 meq PO DAILY 08/12/21 07/06/23 History tablet,extended release blood sugar diagnostic (OneTouch #10 ea 04/14/23 07/06/23 History Ultra Test strips) cholestyramine-aspartame 4 gram 1 ea PO DAILY 04/14/23 07/06/23 History oral powder for susp in a packet (Prevalite) ergocalciferol (vitamin D2) 1,250 1,250 mcg PO WEEKLY low vit D 3 04/14/23 07/06/23 Rx mcg (50,000 unit) capsule (Vitamin months #13 caps D2) venlafaxine 75 mg capsule,extended 75 mg PO DAILY 04/14/23 07/06/23 History release 24 hr cephalexin 500 mg capsule 500 mg PO BID 7 days #14 caps 07/06/23 07/06/23 Rx diazepam 5 mg tablet (Valium) 5 mg PO BID PRN muscle spasm 7 07/06/23 07/06/23 Rx days #14 tabs empagliflozin 10 mg tablet 10 mg PO DAILY 07/06/23 07/06/23 History (Jardiance) gabapentin 100 mg capsule 100 mg PO TID PRN nerve pain 10 07/06/23 07/06/23 Rx days #21 caps ketorolac 10 mg tablet 10 mg PO Q6H PRN pain 5 days #20 07/06/23 07/06/23 Rx tabs ondansetron 4 mg disintegrating 4 mg PO Q6H PRN nausea and 07/06/23 07/06/23 Rx tablet vomiting 7 days #28 tabs oxycodone-acetaminophen 7.5 mg-325 1 tab PO Q4H PRN pain 7 days #42 07/06/23 07/06/23 Rx mg tablet tabs pantoprazole 40 mg tablet,delayed 40 mg PO DAILY 07/06/23 07/06/23 History release New Prescriptions to Start Prescriptions: cephalexin 500 mg capsule diazepam 5 mg tablet gabapentin 100 mg capsule ketorolac 10 mg tablet ondansetron 4 mg disintegrating tablet oxycodone-acetaminophen 7.5 mg-325 mg tablet Allergies Allergy/AdvReac Type Severity Reaction Status Date / Time latex Allergy Rash Verified 07/06/23 07:42 Discharge Plan Disposition Patient Disposition: Home, Self-Care Condition: Fair Follow up Plan Follow up with: Ignacia Nails, BRADLEY [Physical Therapist] - 07/12/23 3:00 pm Laya Moreno DPM [Staff Physician] - 07/14/23 11:00 am Prescriptions/Medication Reconciliation: New ketorolac 10 mg tablet 10 mg PO Q6H PRN (Reason: pain) 5 Days Qty: 20 0RF gabapentin 100 mg capsule 100 mg PO TID PRN (Reason: nerve pain) 10 Days Qty: 21 0RF oxycodone-acetaminophen 7.5-325 mg tablet 1 tab PO Q4H PRN (Reason: pain) 7 Days Qty: 42 0RF ondansetron 4 mg tablet,disintegrating 4 mg PO Q6H PRN (Reason: nausea and vomiting) 7 Days Qty: 28 0RF diazepam [Valium] 5 mg tablet 5 mg PO BID PRN (Reason: muscle spasm) 7 Days Qty: 14 0RF cephalexin 500 mg capsule 500 mg PO BID 7 Days Qty: 14 0RF Continued amlodipine 5 mg tablet 5 mg PO DAILY metformin 500 mg tablet 500 mg PO BID Hold Instructions: Resume on 05/15/23. losartan-hydrochlorothiazide 100-25 mg tablet 1 tab PO DAILY simvastatin 40 mg tablet 40 mg PO DAILY aspirin 81 mg capsule 81 mg PO DAILY Trulicity 0.75 mg/0.5 mL pen injector 0.75 ml SQ WEEKLY Centrum Silver Men 300-600-300 mcg tablet 1 tab PO DAILY diphenhydramine-acetaminophen [Tylenol PM Extra Strength] 25-500 mg tablet 1 tab PO HS PRN (Reason: Pain) potassium chloride 10 mEq tablet extended release 10 meq PO DAILY venlafaxine 75 mg capsule,extended release 24hr 75 mg PO DAILY (DME) OneTouch Ultra Test Strip See Rx Instructions .ROUTE .MEDSUPPLY Qty: 10 Rx Instructions: As directed cholestyramine-aspartame [Prevalite] 4 gram powder in packet 1 ea PO DAILY ergocalciferol (vitamin D2) [Vitamin D2] 1,250 mcg (50,000 unit) capsule 1,250 mcg PO WEEKLY 90 Days Qty: 13 3RF pantoprazole 40 mg tablet,delayed release (DR/EC) 40 mg PO DAILY Jardiance 10 mg tablet 10 mg PO DAILY Held celecoxib 200 mg capsule 200 mg PO DAILY Hold Instructions: DO NOT take concurrently with toradol/ketorolac Other Ambulatory Orders: Home Medical Equipment (Routine) Location: None Selected Ordered By: Sky Burr Problem Reconciliation Problems Reviewed?: Yes Patient Discharge Instructions ACTIVITY: Continue current activity DIET: continue same diet Patient Instructions: DI for Surgical Site Infection Providers Primary Care Provider: Nickie Bullock Admit Provider: Sky Burr Attending Provider: Sky Burr
[2023-07-07 09:06] LABS: Hemoglobin A1C 6.7 % (4.0-6.0)
--- NOTE | 2023-07-07 09:08 | EXP.ANES.II ---
[facility] Anesthesia Record Part II Anesthesia Record Part II Discharge Time: 14:58 Destination: Second Floor PACU nurse assessment reviewed?: Yes Patient Condition:: Good Anesthesia Complications:: None Swallowing reflex intact?: Yes Airway Patency: Patent Cyanosis?: No Blood Pressure: 134/72 SaO2: 93 Respiratory Rate: 17 Pulse Rate: 91 Temperature: 97.8 F Mental Status: Alert & Oriented Pain level:: 0 Nausea and/or vomitting:: None Intake, IV Amount: 0 Hydration: Adequate
[2023-07-07 09:09] VITALS: BP 134/72; PULSE 91; RESP 17; TEMP 36.6; O2SAT 93
[2023-07-07] MEDS: AMLODIPINE 5MG TABLET 5 MG PO (09:21)
[2023-07-07] MEDS: PANTOPRAZOLE 40MG TABLET 40 MG PO (09:21)
[2023-07-07] MEDS: EMPAGLIFLOZIN 10MG TABLET 10 MG PO (09:21)
[2023-07-07] MEDS: VENLAFAXINE XR 75MG CAPSULE 75 MG PO (09:21)
[2023-07-07] MEDS: POTASSIUM CHLORIDE 10MEQ TABLET.ER 10 MEQ PO (09:21)
[2023-07-07] MEDS: METFORMIN 500MG TABLET 500 MG PO (09:21)
[2023-07-07] MEDS: IRBESARTAN 150MG TAB 150 MG PO (09:21)
[2023-07-07] MEDS: ASPIRIN EC 81MG TABLET 81 MG PO (09:22)
[2023-07-07] MEDS: hydroCHLOROthiazide 25MG TABLET 25 MG PO (09:22)
--- NOTE | 2023-07-07 09:55 | HMH.PTEV ---
Physical Therapy Evaluation Rehab PT IP Evaluation Start: 07/06/23 14:30 Freq: ONCE Status: Active Protocol: Document 07/07/23 09:42 PATRIZIA (Rec: 07/07/23 09:50 PATRIZIA [email or web address]) Subjective/History History History Pt presents s/p left tibiotalar calcaneal arthrodesis. Pt is NWB on left leg. Subjective Subjective PLOF per pt report: IND with ADLs and functional mobility. Lives with in single- story home with no XAVIER (but small threshold). No prior AD use. Has a brother who can assist as needed. able to drive and brother able to assist with mobility if needed . New diagnosis of cancer in past 12 No months? Rehab PT IP Eval Objective Appearance Patient Behavior Appropriate,Cooperative Patient Orientation Person,Place,Situation Difficulty following instructions none Speech Pattern Clear Ambulation Patient Able to Ambulate Yes Ambulation Observation Ambulation Distance (feet) 15 Ambulation Assistive Device Rolling Walker Ambulation Ability Contact Guard/Hand Hold Transfers Bed Transfer Ability Independent Sit to Stand Bed Transfer Ability Contact Guard/Hand Hold Rehab PT IP prob,goals,plan Problems Date of Evaluation: 07/07/23 Discharge Plan PT Discharge Plan Pt safe to d/c home d/t current level of functional mobility, home set-up, and available family support. Pt able to ambulate while maintaining NWB precautions using RW with SUP-CGA. Recommending pt d/c home with assistance as needed by family . PT educated pt on proper transfer technique and safety when using RW. Pt verbalized education on precautions and safety. No skilled inpatient therapy needed at this time. PT recommending outpatient PT services. Eval Complexity Eval Charge Codes 82751 - Moderate Complexity PHYSICIAN CERTIFICATION: I certify the specified therapy services for Gerson aPrmar are required, authorized, and reviewed every 30 days.
[2023-07-07] MEDS: MORPHINE 2MG/ML SYRINGE 2 MG IV (11:02)
--- NOTE | 2023-07-08 13:30 | CARE MANAGER ---
Contacted patient related to hospital discharge. He states he is in pain, but has spoken with Dr. Moreno's office today. He has all his medications and is aware of follow up appointment. [facility]
== END 2023-07-07 11:55 | disposition home or self-care (01) ==
LOC: 2ND 09:48
PROVIDERS: Podiatrist; Admitting Provider Internal Medicine Adolescent Medicine; PCP Nurse Practitioner Family; Visit Provider Internal Medicine Adolescent Medicine
PROC: (CPT 27626; principal; 2023-07-06 09:30)
DX: M19.072 Primary osteoarthritis, left ankle and foot (principal); E11.42 Type 2 diabetes mellitus with diabetic polyneuropathy; G24.01 Drug induced subacute dyskinesia; Z98.1 Arthrodesis status; M14.672 Charcot's joint, left ankle and foot; E66.9 Obesity, unspecified; I10 Essential (primary) hypertension; E78.5 Hyperlipidemia, unspecified; I25.10 Atherosclerotic heart disease of native coronary artery without angina pectoris; Z79.899 Other long term (current) drug therapy; M25.572 Pain in left ankle and joints of left foot; M25.372 Other instability, left ankle; Z79.84 Long term (current) use of oral hypoglycemic drugs
CPT/HCPCS: 27626; 27870; 36415; 71045; 73600; 73610; 76000; 80053; 81001; 82962; 83036; 83735; 85025; 88305; 96374; 97162; C1713; C1734; C1776; G0378

== ENCOUNTER 2023-07-12 15:07 | Outpatient (RCR) | payer MEDICARE, BC, SELFPAY ==
--- NOTE | 2023-07-12 16:43 | HMH.PTOPEV ---
PT Outpatient Evaluation Rehab PT Outpatient Evaluation Start: 07/12/23 15:16 Freq: Status: Active Protocol: Document 07/12/23 15:16 PATRIZIA (Rec: 07/12/23 16:35 PATRIZIA [id number]) E-signed By Ignacia Nails, PT Outpatient Therapy Subjective History Subjective History Pt presents s/p ankle surgery (arthrodesis) and is currently NWB LLE. Pt presents with referral for gait and DME training. Pt lives with his in a single story home and no XAVIER. Pt denies any falls since he was d/c'd home. Pt has been using knee scooter at home but reports some difficulty not placing foot down during transfers. Pt 's helps with mobility and ADLs as needed. Pt has weekly follow ups with physician at [facility]. 10 ankle pain at baseline. New diagnosis of cancer in past 12 No months? Chief Complaint Pain,Weakness Current Functional Limitations Housework,Dressing,Driving, Standing,Squatting,Recreation Activity,Walking,Stairs, Balance Level of pain today (0-10) 4 Balance Eval Subjective Hx of Complaint Comment Pt is NWB and using knee scooter. Requires assistance for ADLs and mobility Hx of Falls Hx Falls No: Reports no falls since being home from surgery Gait/Posture Asssessment Assistive Devices Rolling / Wheeled Walker Level of Transfer Assist Assistance x1 CROOKS Balance Evaluation Sitting to Standing Ability Several Tries w/Hands Unsupported Stance Several Tries, 30 seconds Sitting Unsupported, Feet on Floor Safely- 2 minutes Standing to Sitting Ability Independent, Uncontrolled Transfer Ability Assistance- 1 person Unsupported Stance- Eyes Closed Falls Without Assistance Unsupported Stance- Eyes Open Assist to attain, 15 secs Reaching Forward Standing Supervision Needed Pick- Up Object From Floor Requires Assistance Look Behind Shoulder - Standing Assist to Prevent Fall Turning 360 Degrees Requires Assistance Unsupported Stance, Alternating Feet on Assist to Prevent Fall Stair Unsupported Tandem Stance Assist to Step-15 seconds Unilateral Leg Stance Lifts Leg/Holds > 3 secs Total Score Balance Evaluation Total (out of 56 14 points) Miscellaneous Dx PT Eval Objective Objective STS: RW with CGA-Min A Transfer w/c to EOB: CGA Ambulating 30': CGA with RW Miscellaneous Goals Short Term Goals Pt will perform EOB>chair transfer using RW without VCs for technique, safety, or sequencing. Volunteer Services Manager Goals Pt will be IND with all functional mobility scores ( bed mobility, community and HH amb, uneven surface negotiation, picking up objects, stairs if applicable) . Outpatient Therapy Assessment Impairments Problems/Impairmments Impaired Strength,Impaired Transfers,Impaired Gait Pattern,Impaired Walking, Impaired Standing,Impaired Stair Climbing,Impaired Balance,Impaired CROOKS Score, Subjective C/O Pain Prognosis Rehab Potential Good Comment Pt with impaired functional mobility (bed mobility, transfers, ambulation) and LE strength. Pt is NWB and is limited by balance and weakness. Pt would benefit from skilled outpatient PT to address deficits, decrease caregiver burden, and maximize safety during mobility tasks. Clinical Impression Consistent with Diagnosis Yes Short Term Goals Number of Weeks 3 Improve Gait Pattern with Assistive Yes: Good RLE clearance when Device hopping w/ RW. No VCs for technique or safety. CGA Increase Ability to Walk Yes: Pt will hop 65' using RW to improve endurance and mobility; CGA Improve Ability to Step on Uneven Yes: Amb/hop 10' over uneven Surfaces surface with Min A using RW Improve Balance Yes: Score reflecting Medium fall risk (21-40) Patient to be Ind w/ HEP Yes Volunteer Services Manager Goals Number of Weeks 12 Increase Strength Yes: 5/5 B hip and knee Improve Gait Pattern with Assistive Yes: Ambulate (per WBing order Device ) 150' IND with LRAD to improve community amb. Improve Ability to Step on Uneven Yes: Amb 10' over uneven Surfaces surface (carpet, grass, mat) with IND Increase CROOKS Score Yes: Score reflecting Low fall risk (41-56) Outpatient Therapy Plan of Care Treatment Plan May Include Therapeutic Exercise Including Home Yes Exercise Program Neuromuscular Re-education Yes Therapeutic Activities to Return to Yes Previous Functional/Work Level Gait Training Yes ADL/Self Care Education Yes Thermal Modalities Yes Electrical Stimulation Yes Ultrasound/Phonophoresis Yes Iontophoresis Yes Massage Yes Eval/Re-Eval Yes Frequency Times per week 2 Duration Number of Weeks 12 Addendums This patient is a candidate for social No or vocational rehab? Patient/Guardian verbally acknowledges Yes understanding of treatment program and consents to further treatment? Patient/Guardian verbally acknowledges Yes understanding of diagnosis, prognosis and goals for treatment? Eval Complexity PT Charges 93339 - Moderate Complexity Shoulder/Elbow Eval Shoulder Objective Measurements Elbow Objective Measurements PHYSICIAN CERTIFICATION: I certify the specified therapy services for Gerson Agata are required, authorized, and reviewed every 30 days.
== END 2023-07-12 16:00 | disposition home or self-care (01) ==
LOC: PT 15:07
PROVIDERS: PCP Nurse Practitioner Family; Visit Provider Podiatrist
DX: M25.572 Pain in left ankle and joints of left foot (principal); Z98.890 Other specified postprocedural states
CPT/HCPCS: 97163; 97530

== ENCOUNTER 2023-07-12 19:10 | Emergency (ER) | payer MEDICARE, BC, SELFPAY ==
[2023-07-12 19:11] VITALS: BP 154/87; PULSE 97; RESP 18; TEMP 36.8; O2SAT 98; BMI 32.5
--- NOTE | 2023-07-12 20:46 | ED_ITS ---
Discharge Plan Disposition Patient Disposition: Home, Self-Care Prescriptions Prescriptions: No Action amlodipine 5 mg tablet 5 mg PO DAILY metformin 500 mg tablet 500 mg PO BID Hold Instructions: Resume on 05/15/23. losartan-hydrochlorothiazide 100-25 mg tablet 1 tab PO DAILY simvastatin 40 mg tablet 40 mg PO DAILY celecoxib 200 mg capsule 200 mg PO DAILY Hold Instructions: DO NOT take concurrently with toradol/ketorolac aspirin 81 mg capsule 81 mg PO DAILY Trulicity 0.75 mg/0.5 mL pen injector 0.75 ml SQ WEEKLY Centrum Silver Men 300-600-300 mcg tablet 1 tab PO DAILY diphenhydramine-acetaminophen [Tylenol PM Extra Strength] 25-500 mg tablet 1 tab PO HS PRN (Reason: Pain) potassium chloride 10 mEq tablet extended release 10 meq PO DAILY venlafaxine 75 mg capsule,extended release 24hr 75 mg PO DAILY (DME) OneTouch Ultra Test Strip See Rx Instructions .ROUTE .MEDSUPPLY Qty: 10 Rx Instructions: As directed cholestyramine-aspartame [Prevalite] 4 gram powder in packet 1 ea PO DAILY ergocalciferol (vitamin D2) [Vitamin D2] 1,250 mcg (50,000 unit) capsule 1,250 mcg PO WEEKLY 90 Days Qty: 13 3RF oxycodone-acetaminophen 7.5-300 mg tablet 1 tab PO Q8H PRN pantoprazole 40 mg tablet,delayed release (DR/EC) 40 mg PO DAILY Jardiance 10 mg tablet 10 mg PO DAILY ketorolac 10 mg tablet 10 mg PO Q6H PRN (Reason: pain) 5 Days Qty: 20 0RF gabapentin 100 mg capsule 100 mg PO TID PRN (Reason: nerve pain) 10 Days Qty: 21 0RF oxycodone-acetaminophen 7.5-325 mg tablet 1 tab PO Q4H PRN (Reason: pain) 7 Days Qty: 42 0RF ondansetron 4 mg tablet,disintegrating 4 mg PO Q6H PRN (Reason: nausea and vomiting) 7 Days Qty: 28 0RF diazepam [Valium] 5 mg tablet 5 mg PO BID PRN (Reason: muscle spasm) 7 Days Qty: 14 0RF cephalexin 500 mg capsule 500 mg PO BID 7 Days Qty: 14 0RF Referrals Follow up/Referrals: Ara,Nickie, DIRECTOR OF COMPENSATION [Primary Care Provider] - See instructions Clinical Impressions Clinical Impression: Change or removal of surgical wound dressing Discharge ED Provider: Sonia Marks General Adult HPI General Chief complaint: Recheck/Abnormal Lab/Rx Stated complaint: post surgery - bandages are wet Time Seen by Provider: 07/12/23 20:30 Mode of Arrival: Wheelchair Source of Information: Patient Limitations: No Limitations Description of Symptoms (Recalled from ER Triage Doc. by RN): Patient reports he had foot surgery by last tuesday. He was seen in her office today to remove drain and dressing change. Patient reports when he got home they applied the cooling pack as directed and when patient got up to go to the bathroom he felt that the heel of his dressing was wet. Patient and spouse are concerned ab out the dressing being wet as instructed to keep dressing dry. History of Present Illness HPI narrative: Patient is a 73-year-old male recently had surgery with Dr. Parkinson who actually to Dr. Mayer's office this morning because the dressing and splint that they had got wet did not know why do dressing was placed on the patient went back home and they got wet again they found out that this was secondary to an ice apparatus that they had that was leaking water. They returned as they were told to keep this dressing dry. Related Data Home Medications Medication Instructions Recorded Confirmed amlodipine 5 mg tablet 5 mg PO DAILY 04/07/21 07/12/23 aspirin 81 mg capsule 81 mg PO DAILY 04/07/21 07/12/23 celecoxib 200 mg capsule 200 mg PO DAILY 04/07/21 07/12/23 diphenhydramine 25 1 tab PO HS PRN Pain 04/07/21 07/12/23 mg-acetaminophen 500 mg tablet (Tylenol PM Extra Strength) dulaglutide 0.75 mg/0.5 mL 0.75 ml SQ WEEKLY 04/07/21 07/12/23 subcutaneous pen injector (Trulicity) losartan 100 1 tab PO DAILY 04/07/21 07/12/23 mg-hydrochlorothiazide 25 mg tablet metformin 500 mg tablet 500 mg PO BID 04/07/21 07/12/23 [id number] 300 mcg-K 60 1 tab PO DAILY 04/07/21 07/12/23 mcg-lycop 600 mcg-lutein 300 mcg tablet (Centrum Silver Men) simvastatin 40 mg tablet 40 mg PO DAILY 04/07/21 07/12/23 potassium chloride 10 mEq 10 meq PO DAILY 08/12/21 07/12/23 tablet,extended release blood sugar diagnostic (OneTouch #10 ea 04/14/23 07/12/23 Ultra Test strips) cholestyramine-aspartame 4 gram 1 ea PO DAILY 04/14/23 07/12/23 oral powder for susp in a packet (Prevalite) venlafaxine 75 mg capsule,extended 75 mg PO DAILY 04/14/23 07/12/23 release 24 hr empagliflozin 10 mg tablet 10 mg PO DAILY 07/06/23 07/12/23 (Jardiance) pantoprazole 40 mg tablet,delayed 40 mg PO DAILY 07/06/23 07/12/23 release oxycodone-acetaminophen 7.5 mg-300 1 tab PO Q8H PRN 07/12/23 07/12/23 mg tablet Previous Rx's Medication Instructions Recorded ergocalciferol (vitamin D2) 1,250 1,250 mcg PO WEEKLY low vit D 3 04/14/23 mcg (50,000 unit) capsule (Vitamin months #13 caps D2) cephalexin 500 mg capsule 500 mg PO BID 7 days #14 caps 07/06/23 diazepam 5 mg tablet (Valium) 5 mg PO BID PRN muscle spasm 7 07/06/23 days #14 tabs gabapentin 100 mg capsule 100 mg PO TID PRN nerve pain 10 07/06/23 days #21 caps ketorolac 10 mg tablet 10 mg PO Q6H PRN pain 5 days #20 07/06/23 tabs ondansetron 4 mg disintegrating 4 mg PO Q6H PRN nausea and 07/06/23 tablet vomiting 7 days #28 tabs oxycodone-acetaminophen 7.5 mg-325 1 tab PO Q4H PRN pain 7 days #42 07/06/23 mg tablet tabs Allergies Allergy/AdvReac Type Severity Reaction Status Date / Time latex Allergy Rash Verified 07/12/23 14:17 [facility] Disclaimer: The information contained in this section may have been updated after the patient was seen, as this information can be updated by other users. Medical History Abnormal stress test Arthritis CAD (coronary artery disease) Diabetes GERD (gastroesophageal reflux disease) History of tonsillitis HLD (hyperlipidemia) HTN (hypertension) Surgical History History of appendectomy History of cardiac cath History of cholecystectomy History of hernia repair History of knee replacement Family History Other Family history of cancer Family history of diabetes mellitus Family history of heart disease Social History Smoking Status: Never smoker alcohol intake: former substance use type: denies use current occupational status: retired Travel in the last 8 weeks: Inside the [place] ROS Obtained: Yes All systems reviewed & no additional complaints except as documented Physical Exam General General appearance: alert Respiratory Respiratory exam: Present normal lung sounds bilaterally Cardiovascular Cardiovascular exam: Present regular rate Extremities Exam Extremities exam: Present other (Entire splint taken down but this point was soaking wet with a 90 degree posterior slab splint with gauze and Betadine soaked dressings and Xeroform over moist wound) Neurological Exam Neurological exam: Present alert Medical Decision Making Pasquale Inquiry Pt receiving controlled substance: No Vital Signs: 07/12/23 19:11 Temperature 98.2 F Temperature Source Oral Pulse Rate [Right Radial] 97 H Respiratory Rate 18 Blood Pressure [Right Arm] 154/87 H Blood Pressure Mean [Right Arm] 109 Blood Pressure Source [Right Arm] Automatic Cuff Blood Pressure Position [Right Arm] Supine 02 Sat by Pulse Oximetry 98 Oxygen Delivery Method Room Air Medical Decision Narrative: Splint was soaking wet as stated above was completely removed and repeat dres sing and dry splint was placed back on the patient a posterior slab formation. Patient will follow-up with surgeon as previously instructed. Critical Care Critical Care Time Critical Care Time: No
[2023-07-12 20:58] VITALS: BP 154/87; PULSE 85; RESP 16; TEMP 36.8; O2SAT 98
== END 2023-07-12 21:19 | disposition home or self-care (01) ==
PROVIDERS: Emergency Provider Student in an Organized Health Care Education/Training Program; PCP Nurse Practitioner Family
DX: Z48.01 Encounter for change or removal of surgical wound dressing (principal)
CPT/HCPCS: 99282

== ENCOUNTER 2023-07-12 19:40 | Outpatient (CLI) | payer MEDICARE, BC, SELFPAY | END 2023-07-12 23:59 | PROVIDERS: PCP Podiatrist; Visit Provider Podiatrist | DX: S90.522A Blister (nonthermal), left ankle, initial encounter (principal); M25.572 Pain in left ankle and joints of left foot | CPT/HCPCS: 87070; 87205 ==

== ENCOUNTER 2023-08-04 16:06 | Outpatient (CLI) | payer MEDICARE, BC, SELFPAY ==
--- NOTE | 2023-08-04 16:09 | ECG_ITS ---
APPROVED REPORT Exam: Resting ECG HR:76 bpm ECG Measurements Heart Rate 76 AXES WI 168 P 48 QRSd 92 QRS 63 QT 384 T 25 QTc 414 Conclusion SINUS RHYTHM NONSPECIFIC T-WAVE ABNORMALITY BORDERLINE ECG UNCONFIRMED REPORT Electronically signed by : Vaughn Roman MD 08/04/2023 19:51:06
--- NOTE | 2023-08-04 16:14 | XR_ITS ---
PROCEDURE INFORMATION: Exam: XR Left Ankle Exam date and time: 08/04/2023 4:28 PM Age: 73 years old Clinical indication: Pain; Ankle; Left; Additional info: Ankle pain TECHNIQUE: Imaging protocol: Radiologic exam of the left ankle. Views: 3 or more views. COMPARISON: CR XR ANKLE LT MIN 3V 07/06/2023 3:03 PM FINDINGS: Bones/joints: Triple arthrodesis of the left ankle with fusion of the tibial talar, talonavicular and calcaneocuboid joints again noted. Hardware is intact. Bone metal interface is unremarkable. No evidence of periprosthetic fracture. There are moderate degenerative changes at the ankle mortise and a moderate-sized plantar spur unchanged. Pes planus deformity is noted on the lateral exam. Soft tissues: There are multiple surgical shravan along the overlying skin. There is some soft tissue swelling anterior to the ankle joint that appears to progressed from previous exam. IMPRESSION: Stable postoperative changes from triple arthrodesis left ankle.
--- NOTE | 2023-08-04 16:14 | XR_ITS ---
PROCEDURE INFORMATION: Exam: XR Left Foot Complete; Alignment Exam date and time: 08/04/2023 4:28 PM Age: 73 years old Clinical indication: Pain; Foot; Left; Prior surgery; Surgery date: <1 month; Surgery type: Reconstruction; Additional info: Foot pain TECHNIQUE: Imaging protocol: Radiologic exam of the left foot. Views: 3 or more views. COMPARISON: CT FOOT LT WO CON 11/01/2022 3:16 PM FINDINGS: Bones/joints: Redemonstration of triple arthrodesis left ankle partially visualized as previously discussed. Pes planus deformity of the longitudinal arch noted on the lateral exam. Mild-moderate osteoarthritic changes present along the midfoot most pronounced at the 1st tarsometatarsal articulation. No fracture, dislocation or gross malalignment. Soft tissues: Normal. IMPRESSION: No acute bony abnormalities.
--- NOTE | 2023-08-04 16:14 | XR_ITS ---
PROCEDURE INFORMATION: Exam: XR Chest Exam date and time: 08/04/2023 4:28 PM Age: 73 years old Clinical indication: Screening exam; Pre-operative exam; Other: Ankle/foot; Additional info: Pre op testing TECHNIQUE: Imaging protocol: Radiologic exam of the chest. Views: 2 views. COMPARISON: CR XR CHEST PORTABLE 07/06/2023 7:56 AM FINDINGS: Lungs: Lung talley are aerated and clear. No infiltrates or overt CHF. Pleural spaces: Unremarkable. No pleural effusion. No pneumothorax. Heart/Mediastinum: Unremarkable. No cardiomegaly. Bones/joints: Unremarkable for age. IMPRESSION: Negative chest. No active disease.
[2023-08-04 17:35] LABS: Basophils # 0.1 K/mm3 (0-0.2); Basophils % 0.9 % (0.1-2.0); Eosinophils # 0.5 K/mm3 (0.0-0.4); Eosinophils % 4.2 % (0.1-12.0); Hematocrit 44.3 % (42.0-52.0); Hemoglobin 14.2 g/dL (14.1-18.0); Lymphocytes # 2.4 K/mm3 (0.7-4.5); Lymphocytes % 20.8 % (10-50); Mean Corpuscular Hemoglobin 27.8 pg (27.0-31.2); Mean Corpuscular Volume 86.7 fl (80-94); Mean Platelet Volume 8.6 fl (7.4-10.4); Monocytes # 0.6 K/mm3 (0.1-1.0); Monocytes % 5.3 % (1.7-9.3); Neutrophils % 68.7 % (37.0-80.0); Platelet Count 286 K/mm3 (142-424); Red Blood Count 5.11 M/mm3 (4.60-6.20); Red Cell Distribution Width 15.2 % (11.5-17.5); White Blood Count 11.6 K/mm3 (4.8-10.8)
[2023-08-04 17:51] LABS: Chloride 101 mmol/L (98-107)
[2023-08-04 17:52] LABS: Potassium 3.9 mmoL/L (3.5-5.1); Sodium 137 mmol/L (136-145)
[2023-08-04 17:54] LABS: Alanine Aminotransferase 35 U/L (12-78); Albumin Level 4.5 g/dl (3.5-5.0); Albumin/Globulin Ratio 1.5 (1.1-1.8); Alkaline Phosphatase 160 U/L (38-126); Anion Gap 11.9 mEq/L (5-15); Aspartate Amino Transferase 44 U/L (17-59); Bilirubin,Total 0.9 mg/dl (0.2-1.3); Blood Urea Nitrogen 15 mg/dl (9-20); Calcium 10.3 mg/dl (8.4-10.2); Carbon Dioxide 28 mmol/L (22.0-30.0); Estimated Glomerular Filt Rate 65 ml/min (>60); GFR (African American) 79 ML/MIN (>60); Globulin 3.1 g/dL (1.3-3.2); Glucose 121 mg/dl (74-100); Total Protein,Serum 7.6 g/dl (6.3-8.2)
[2023-08-04 18:00] LABS: C-Reactive Protein 2.1 mg/L (0-4)
[2023-08-04 18:11] LABS: Erythrocyte Sedimentation Rate 17 mm/hr (0-20)
== END 2023-08-04 23:59 ==
LOC: LAB 16:09
PROVIDERS: PCP Nurse Practitioner Family; Visit Provider Podiatrist
DX: Z01.818 Encounter for other preprocedural examination (principal); R60.9 Edema, unspecified; T81.31XA Disruption of external operation (surgical) wound, not elsewhere classified, initial encounter; M79.672 Pain in left foot
CPT/HCPCS: 36415; 71046; 73610; 73630; 80053; 85025; 85651; 86140; 87070; 87205; 93005

== ENCOUNTER 2023-08-10 08:21 | Day surgery (SDC) | payer MEDICARE, BC, SELFPAY ==
[2023-08-08 13:35] VITALS: BMI 31.3
[2023-08-10 08:42] VITALS: BP 123/73; PULSE 82; RESP 18; TEMP 36.4; O2SAT 95
[2023-08-10] MEDS: LACTATED RINGERS 1000ML 1,000 ML 25 ML IV (08:50)
[2023-08-10] MEDS: BUPIVACAINE 0.5% 10ML VIAL 50 MG (11:18)
[2023-08-10] MEDS: VANCOMYCIN/WATER FOR INJ (PEG) 1.5 GM/300 ML PIGGYBACK IV (11:19)
[2023-08-10 11:45] VITALS: BP 122/62; PULSE 88; RESP 18; TEMP 36.2; O2SAT 92
[2023-08-10 11:55] VITALS: BP 147/75; PULSE 84; RESP 16; O2SAT 93
--- NOTE | 2023-08-10 11:59 | P.OP_ITS ---
Date of procedure: 08/10/23 Pre-op Diagnosis:: Left lateral ankle wound dehiscence Left medial foot wound dehiscence Left anterior diabetic foot ulcer S/p TTC AD on 07/06/23 Post-op Diagnosis:: Same Procedure performed:: Secondary closure of surgical wound Incision and drainage below fascia lateral foot Wide deep excisional wound debridement (of deep fascia/muscle) Versajet wound debridement x2 (75425) Application of wound VAC Suture/staple removal Surgeon:: Laya Moreno DPM FACILITY MECHANIC:: Cedric Ramirez Anesthesia: MAC and local (10cc 0.5% marcaine plain) Estimated blood loss (mL): 20 Clinical Note:: 73-year-old diabetic male status post left tibiotalar calcaneal arthrodesis on 07/06/23. Patient has had skin compromise since the first postop week when the dressing got wet multiple times. New images were reviewed, no evidence of deep bone infection. We discussed conservative versus surgical treatment options. We discussed conservative care including continued oral vs IV antibiotics and local wound care versus surgical incision and drainage with application of wound VAC. Patient understands that they could have wound healing complications including delayed healing and infection. We discussed that if the wound does not heal, it is possible that they may need further debridement. Patient understands if infection spreads into the bone, it may warrant proximal amputation and could result in further loss of digits, loss of partial foot or loss of leg. Discussed possibility of needing skin grafting in the future. We discussed the risks and benefits in great detail. Other surgical risks include: prolonged pain and swelling, further infection requiring oral or IV antibiotics, delay in healing of soft tissue or bone, nerve or blood vessel damage, CRPS/RSD, DVT/PE, anesthesia complications, and even . All questions answered. Patient verbalized understanding. Consent obtained. Operative findings:: Left anterior ankle diabetic foot ulcer, medial and lateral postop ankle incisional wound dehiscence noted. All wounds were sharply excisionally debrided with 15 blade, forceps and curette full-thickness through skin, subcu into/including deep fascia. Left medial ankle wound: Full-thickness through skin into subcutaneous tissue. Postdebridement: 100% granular, 1.2 x 0.4 x 0.1cm. Skin edges were able to be reapproximated and closure of the surgical wound dehiscence was performed. Next a Versajet was then used in standard technique to debride other two wounds full-thickness. No purulence, malodor or deep signs of infection noted. Left anterior ankle ulcer: Extended full-thickness through skin, subcu into/including deep fascia over tibialis anterior tendon. Postdebridement 75% granular, 25% fibrotic yellow tissue, measured 7.2 x 1.8 x 0.4cm. Left lateral ankle wound: Full-thickness through skin, subcu into/including deep fascia. No exposed bone or probe to bone/hardware. Postdebridement: 75% granular, 25% fibrotic yellow tissue, measure 7.5 x 3.2 x 0.7cm. Overall prognosis: Fair. The wound appears much healthier when compared to the last office visit. Good healthy bleeding tissue post debridement. Plan for wound vac x 4 weeks then may need wound graft. Operative note:: On this date and time the patient was deemed an appropriate surgical candidate and with the informed consent signed the patient was wheeled from the preoperat yuki holding area to the operating theater. The left lower extremity was prepped and draped in normal sterile fashion. No tourniquet utilized. IV Vanco 1g given. Suture/staple removal: Peeling/the skin was removed. All sutures and retained shravan were removed without complication. The skin on the inferior heel incision was not fully healed. Gentamicin irrigation used to cleanse the skin. Next nylon and skin shravan used to reapproximate the inferior heel, proximal medial ankle and distal lateral ankle incisions. Left foot wound debridement, secondary closure surgical wound: Some posto perative wound dehiscence noted to the left medial foot/ankle. Sharp excisional full-thickness debridement with 15 blade and curette performed through skin into/including subcutaneous tissue. See op findings for measurements. Skin edges able to be reapproximated. Wound secondarily closed with skin shravan. Left lateral foot incision and drainage below fascia: Postop incisional wound dehiscence noted to the left ankle. A 1cm incision was made inferior to the wound with a 15 blade full-thickness through skin, subcutaneous tissue and deep fascia to depth of 0.7 cm. No exposed hardware or bone. Wound explored and no purulence malodor or sinus tracking was noted. Wound flushed with gentamicin irrigation. Skin shravan used to close incision. Left anterior ankle and lateral wound debridement: Attention was directed to the anterior ankle where a diabetic foot ulcer was noted and lateral wound where postop incisional wound dehiscence noted. Swelling was down. Utilizing a 15 blade and the [employer] wound debridement system, the wound was debrided sharply excisionally through skin, subcu layer into/including deep fascia. Fibrotic tissue and biofilm was removed. No signs of deep infection. Good bleeding was noted. Bovie electrocautery was used to cauterize vessel on the anterior ankle wound. There was exposed deep fascia over the tibialis anterior tendon. Post debridement, see operative finding for measurements. No purulence or signs of infection. 1L saline irrigation was used via the Versajet wound debridement and irrigation system to flush the cleanse and prep the wound site. Application of wound vac: A wound vac was then applied to the anterior ankle and lateral wounds in standard technique. The seal was checked and vac set to 125mmHg continuous medium. Xeroform over sutures and shravan. A dry sterile dressing and Bernardo was then applied over the vac and the left foot. Patient tolerated the anesthesia and procedure well, with no complications. Patient was awoken and transferred to recovery with vital signs stable and neurovascular status intact. Patient will be discharged home today. Materials: [facility] wound VAC Plan: Maintain the dressing clean dry and intact to the left foot until Tuesday. Elevate on foam ramp. RICE protocol. NWB in fx boot with CHANTALS. Complete course of Levo, Doxy. Follow up on Tuesday08/12/23 with Podiatry. Follow up on Tuesday08/15/23 with [facility] wound care clinic for wound vac changes. Condition: stable Disposition: same day Complications:: None'
[2023-08-10 12:05] VITALS: BP 123/81; PULSE 73; RESP 16; O2SAT 93
[2023-08-10 12:15] VITALS: BP 124/86; PULSE 71; RESP 16; O2SAT 94
[2023-08-10 12:25] VITALS: BP 127/75; PULSE 69; RESP 16; TEMP 36.6; O2SAT 96
[2023-08-10 12:31] LABS: POC Glucose,Bedside 138 (70-110)
== END 2023-08-10 12:25 | disposition home or self-care (01) ==
PROVIDERS: PCP Nurse Practitioner Family; Visit Provider Podiatrist
PROC: (CPT 11043; principal; 2023-08-10 10:00)
DX: T81.31XA Disruption of external operation (surgical) wound, not elsewhere classified, initial encounter (principal); E11.628 Type 2 diabetes mellitus with other skin complications; E11.621 Type 2 diabetes mellitus with foot ulcer; L97.522 Non-pressure chronic ulcer of other part of left foot with fat layer exposed; Z79.899 Other long term (current) drug therapy; Z79.4 Long term (current) use of insulin; I10 Essential (primary) hypertension; E78.5 Hyperlipidemia, unspecified; I25.10 Atherosclerotic heart disease of native coronary artery without angina pectoris
CPT/HCPCS: 11043; 11046; 82962; 96374; J2704

== ENCOUNTER 2023-09-05 13:39 | Outpatient (CLI) | payer MEDICARE, BC, SELFPAY ==
--- NOTE | 2023-09-05 14:01 | XR_ITS ---
FINAL REPORT CLINICAL HISTORY: postop left foot COMPARISON: 08/04/2023 FINDINGS: LEFT ANKLE: Three views of the left ankle were obtained. There are postoperative changes from fusion of the ankle and rear foot. A betsey is present through the calcaneus, talus, and distal tibia. Hardware is intact. There is no acute fracture or dislocation. There is moderate degenerative change. A plantar calcaneal spur is noted. There is no soft tissue abnormality. IMPRESSION: Stable postoperative changes without acute bony abnormality. Reviewed, Interpreted and Dictated by Carlton Braswell III, MD Transcribed by Mari Hinds Authenticated and [facility]
--- NOTE | 2023-09-05 14:01 | XR_ITS ---
FINAL REPORT CLINICAL HISTORY: postop left foot COMPARISON: 08/04/2023 FINDINGS: LEFT FOOT: Three views of the left foot were obtained. There are degenerative changes in the midfoot. There are postoperative changes in the rear foot and ankle. The bony alignment is stable. There is no acute fracture or dislocation. Pes planus deformity is noted. There is no soft tissue abnormality. IMPRESSION: Degenerative and postoperative changes without acute bony abnormality. Reviewed, Interpreted and Dictated by Carlton Braswell III, MD Transcribed by Mari Hinds Authenticated and [facility]
== END 2023-09-05 23:59 ==
LOC: RAD 13:41
PROVIDERS: PCP Nurse Practitioner Family; Visit Provider Podiatrist
DX: M25.572 Pain in left ankle and joints of left foot (principal); M79.672 Pain in left foot; T81.31XD Disruption of external operation (surgical) wound, not elsewhere classified, subsequent encounter; T81.49XA Infection following a procedure, other surgical site, initial encounter; Z98.890 Other specified postprocedural states
CPT/HCPCS: 73610; 73630

== ENCOUNTER 2023-09-19 13:00 | Outpatient (RCR) | payer MEDICARE, BC, SELFPAY ==
--- NOTE | 2023-08-15 14:00 | HMH.PTOPWND ---
Rehab Outpt Wound Evaluation Rehab OP Wound Evaluation Start: 08/15/23 12:58 Freq: Status: Active Protocol: Document 08/15/23 13:50 PHOROMERO (Rec: 08/15/23 14:00 PHORANGLE [id number]) E-signed By Taco Ahn, PT Subjective/History History History This is the initial PT eval for Gerson Parmar, 73 yowm who presents with L foot/ankle wounds S/P I&D performed . He reports no c/o pain currently and only minimal pain at worst. He has been maintaining NWB of his L LE with WKS. He has wound VAC dressing in place upon presentattion today. He has hx of DM and last A1c was 6.7%. Subjective Subjective Pt reporta pain at worst is 1/ 10 in the L foot and only intermittent. New diagnosis of cancer in past 12 No months? Wound Eval Wound Left Lateral Ankle Wound Type Incision Is This a Chronic Wound No Wound Length (cm) 6.7 Wound Width (cm) 4.3 Wound Depth (cm) 0.1 Wound Bed Appearance Beefy Red Percentage Granulated (%) 100 Wound Margins Description Well Defined Surrounding Tissue Appearance [place] Edema Type Pitting Edema Degree 1+ Query Text:1+ Trace, Barely Detectable, Rebound 15-30 seconds 2+ Moderate, Slight Indentation, Rebound 10-20 seconds 3+ Deep, Deeper Indentation, Rebound > 30 seconds 4+ Very Deep, Rebound > 60 seconds Drainage Description Serosanguineous Drainage Amount Small Packing Type Woundvac Sponge Primary Dressing Film Dressing Wound Secondary Dressing Type Gauze Roll/Wrap,Elastic Bandage Wound Debridement Method Gauze Wound Debridement Amount of Tissue Minimal Removed Dressing Change Patient Tolerance Tolerated Well Left Anterior Ankle Wound Type Incision Is This a Chronic Wound No Wound Length (cm) 3.0 Wound Width (cm) 6.0 Wound Depth (cm) 0.1 Wound Bed Appearance Beefy Red Percentage Granulated (%) 95 Wound Margins Description Well Defined Surrounding Tissue Appearance [place] Edema Type Pitting Edema Degree 1+ Query Text:1+ Trace, Barely Detectable, Rebound 15-30 seconds 2+ Moderate, Slight Indentation, Rebound 10-20 seconds 3+ Deep, Deeper Indentation, Rebound > 30 seconds 4+ Very Deep, Rebound > 60 seconds Drainage Description Serosanguineous Drainage Amount Small Packing Type Woundvac Sponge Primary Dressing Film Dressing Wound Secondary Dressing Type Gauze Roll/Wrap,Elastic Bandage Wound Debridement Method Gauze Wound Debridement Amount of Tissue Minimal Removed Dressing Change Patient Tolerance Tolerated Well Wound Problems/Impairments Impairments Problems/Impairmments Palpation Tenderness,Impaired Strength,Impaired Endurance, Impaired Transfers,Impaired Gait Pattern,Impaired Walking, Impaired Standing,Impaired Shower/Bathing,Impaired Household Care,Impaired Incline Stepping,Impaired Stepping on Uneven Surface, Impaired Recreational Activities,Increased Edema, Lymphedema Present,Wound Care Needs,Subjective C/O Pain, Impaired Self Care/Self Management Prognosis Rehab Potential Good Clinical Impression Consistent with Diagnosis Yes Short Term Goals Number of Weeks 2 Decrease Wound Area Yes: by 25% Telephonic Rn Goals Number of Weeks 4 Decreased Palpation Tenderness Yes: 0/4 L ankle Decrease Edema Yes: no pitting edema Decrease Wound Area Yes: by 75% Decrease Subjective C/O Pain Yes: 0/10 at worst Outpatient Therapy Plan of Care Treatment Plan May Include Therapeutic Exercise Including Home Yes Exercise Program Manual Therapy Techniques Yes Neuromuscular Re-education Yes Therapeutic Activities to Return to Yes Previous Functional/Work Level Gait Training Yes ADL/Self Care Education Yes Orthotics/Bracing/Splinting Yes Manual Lymphatic Drainage Yes Wound Care Yes Eval/Re-Eval Yes Frequency Times per week 2-3 Duration Number of Weeks 4 Addendums This patient is a candidate for social No or vocational rehab? Patient/Guardian verbally acknowledges Yes understanding of treatment program and consents to further treatment? Patient/Guardian verbally acknowledges Yes understanding of diagnosis, prognosis and goals for treatment? Eval Complexity PT Charges 43288 - High Complexity PHYSICIAN CERTIFICATION: I certify the specified therapy services for Gerson Parmar are required, authorized, and reviewed every 30 days.
--- NOTE | 2023-09-19 13:57 | HMH.RHREAS ---
Rehab Reassessment Rehab OP Re-assessment Start: 08/15/23 12:58 Freq: Status: Active Protocol: Document 09/19/23 13:52 ERINN (Rec: 09/19/23 13:57 PHOROMERO [id number]) E-signed By Taco Ahn PT Rehab Re-assessment Subjective Subjective Pt reports no c/o pain and no discomfort. He feels he is quickly improving. DPM continues to work on possible skin grafting of the wound per his report. Objective Objective Notes L anterior ankle wound: L= 1.5 cm, W= 4.0 cm, D= 0.1 cm. L lateral ankle wound: L= 5.0 cm, 3.0 cm, D= 0.2 cm. Wounds currently 100% healthy granulation tissue at this time. Assessment Progress Assessment Progressing as Expected Assessment Notes Wounds continue to heal steadily, but not completely closed yet. He continues to need skilled intervention to return to prior level of function. Patient goals met ST LT Goals Not Met LT,2,3 Plan Plan Continue per initial POC. Frequency of Therapy 1-2 x/wk Duration of therapy 4 wks Time and Billing Re-Eval Time 11 Re-Eval Billing Units 0 PHYSICIAN CERTIFICATION: I certify the specified therapy services for Gerson Parmar are required, authorized, and reviewed every 30 days.
== END 2023-09-19 13:05 | disposition home or self-care (01) ==
LOC: PT 13:00
PROVIDERS: Visit Provider Podiatrist
DX: M79.672 Pain in left foot (principal)
CPT/HCPCS: 97140; 97163; 97164; 97597; 97605

== ENCOUNTER 2023-09-29 11:46 | Day surgery (SDC) | payer MEDICARE, BC, SELFPAY ==
[2023-09-27 11:24] VITALS: BMI 31.3
[2023-09-29 12:01] VITALS: BP 142/86; PULSE 69; RESP 18; TEMP 36.9; O2SAT 96
[2023-09-29 12:08] LABS: POC Glucose,Bedside 169 (70-110)
[2023-09-29 12:50] LABS: Basophils # 0.1 K/mm3 (0-0.2); Eosinophils # 0.3 K/mm3 (0.0-0.4); Eosinophils % 4.2 % (0.1-12.0); Hematocrit 40.7 % (42.0-52.0); Hemoglobin 13.4 g/dL (14.1-18.0); Lymphocytes # 1.3 K/mm3 (0.7-4.5); Lymphocytes % 19.3 % (10-50); Mean Corpuscular HGB Conc 32.9 g/dL (31.8-35.4); Mean Corpuscular Hemoglobin 26.6 pg (27.0-31.2); Mean Platelet Volume 8.8 fl (7.4-10.4); Monocytes # 0.5 K/mm3 (0.1-1.0); Monocytes % 7.5 % (1.7-9.3); Neutrophils # 4.4 K/mm3 (1.8-7.8); Platelet Count 196 K/mm3 (142-424); Red Blood Count 5.03 M/mm3 (4.60-6.20); Red Cell Distribution Width 15.9 % (11.5-17.5); White Blood Count 6.5 K/mm3 (4.8-10.8)
[2023-09-29 12:55] LABS: Chloride 105 mmol/L (98-107); Sodium 137 mmol/L (136-145)
[2023-09-29 12:56] LABS: Potassium 3.6 mmoL/L (3.5-5.1)
[2023-09-29 12:58] LABS: Anion Gap 10.6 mEq/L (5-15); Blood Urea Nitrogen 12 mg/dl (9-20); Calcium 10.1 mg/dl (8.4-10.2); Carbon Dioxide 25 mmol/L (22.0-30.0); Creatinine Clearance Estimated 83 mL/min (50-200); Estimated Glomerular Filt Rate 82 ml/min (>60); GFR (African American) 100 ML/MIN (>60); Glucose 142 mg/dl (74-100)
[2023-09-29] MEDS: GENTAMICIN 80 MG/2 ML VIAL (13:00)
[2023-09-29] MEDS: VANCOMYCIN 1000MG VIAL 1000 MG (13:20)
[2023-09-29 13:23] VITALS: BP 159/89; PULSE 64; RESP 18; TEMP 36.4; O2SAT 98
--- NOTE | 2023-09-29 13:26 | P.OP_ITS ---
Date of procedure: 09/29/23 Pre-op Diagnosis:: Left anterior ankle diabetic ulcer Left lateral foot post op surgical wound dehiscence Post-op Diagnosis:: Same Procedure performed:: Left ankle wound debridement Left foot wound debridement Application of wound graft (Organogenesis Apligraf) Surgeon:: Laya Moreno DPM Anesthesia: none Estimated blood loss (mL): 5 Clinical Note:: Patient is a 73-year-old diabetic male who initially underwent a left tibiotalar calcaneal arthrodesis on 07/06/2023. Patient has 2 separate wounds: left anterior ankle diabetic ulcer and left lateral foot/ankle post op surgical wound dehiscence. We discussed conservative versus surgical treatment options. Conse rvative treatment options include local wound care, oral and IV antibiotics, change in shoe wear, taping/padding, and off-loading. Patient has also had weekly wound debridements and biweekly wound VAC applications. Patient has failed conservative care. We discussed surgery for surgical wound debridement and application of wound graft. Patient understands that there is a chance that the foot may change shape after surgery. Patient understands that they could have wound healing complications including delayed healing and infection, which could warrant oral or IV antibiotics. We discussed that if the wound does not heal, it is possible that they may need a distal or more proximal amputation and could result in loss of digits, loss of partial foot or loss of leg. We discussed the risks and benefits in great detail. Other surgical risks include: prolonged pain and swelling, further infection requiring oral or IV antibiotics, delay in healing of soft tissue or bone, nerve or blood vessel damage, CRPS/RSD, DVT/PE, anesthesia complications, and even . All questions answered. Patient verbalized understanding. Consent obtained. In pre-op there was some sweaty odor noted. Dressing removed. Some skin irriation secondary from boot rubbing noted but no purulent drainage. Due to redness, decision made start 7d course of oral antibiotics and to rule out new infection, labs: cbc, cmp, esr, crp taken and reviewed. Will proceed with surgical plan. 09/29/23: wbc 6.5, crp 5.0, cr 0.9, gfr 82, glucose 142 Operative findings:: Two separate wounds: left anterior ankle diabetic ulcer and left lateral foot/ankle postop surgical wound dehiscence. There was some new medial ankle skin irritation secondary to rubbing in the boot. Mild clear drainage from the lateral incision. Wound culture taken. Minimal oleksandr wound maceration and erythema. No purulence or deep SOI noted. Sharp excisional debridement with curette, 15 blade and forceps full-thickness, bleeding noted. Post debridement: Left anterior ankle (diabetic) ulcer: extended full-thickness through skin, subcu into/including deep fascia over tibialis anterior tendon. Majority of ten don is covered. Wound 100% granular, measured 4.7 x 1.6 x 0.2cm. Left lateral ankle (post op surgical wound dehiscence) wound: Full-thickness through skin, subcu into/including deep fascia. No exposed bone or probe to bone/hardware. Post debridement: 100% granular, measured 5.5 x 3.5 x 0.3cm. Operative note:: On this date and time patient was deemed an appropriate surgical candidate. With informed consent signed, the patient was taken to the local procedure operating theater room. The patient was positioned supine. No anesthesia was induced. No tourniquet used. The left lower extremity was prepped and draped in normal sterile fashion. 1g IM Rocephin given. Left anterior ankle wound debridement: Sharp excisional full-thickness debridement with curette, 15 blade and forceps down to/including subcutaneous tissue. No deep fascia or bone exposed. Wound flushed with gentamicin irrigation. Skin cleansed with saline. Left lateral foot wound debridement: Sharp excisional full-thickness debridement with curette, 15 blade and forceps down to/including subcutaneous tissue. No deep fascia or bone exposed. Wound flushed with gentamicin irrigation. Skin cleansed with saline. Vanco powder applied over wounds. Mastisol applied around the wound edges. Application of Apligraf (Organogenesis wound graft): One graft was prepared in standard fashion. The graft was cut to size. The entire graft was utilized. The graft was placed over the two open wounds and secured with Steri-Strips. Adaptic was applied over the graft followed more vanco powder. Betadine soaked gauze applied with dry sterile dressing to left foot/ankle. The patient tolerated the procedure well, without complications. Materials: Organogenesis Aligraf wound graft x1 Discharge/Plan: Ok to discharge home when ready and vss. Patient is to maintain dressing clean dry and intact. Elevate on two pillows. Non weight bearing to the left lower extremity in fracture boot/post op shoe with walker/RKS. eRx Levo 750mg, Linezolid 600mg x7d (09/29-10/06/23). Left ankle 3v x-rays. Follow up in one week for wound debridement and graft application #2. Condition: stable Disposition: same day Specimens:: Left ankle WCx Complications:: None
--- NOTE | 2023-09-29 13:26 | XR_ITS ---
FINAL REPORT CLINICAL HISTORY: Post op TTC COMPARISON: None FINDINGS: 3 views of the reveal postoperative changes of an arthrodesis of the ankle and subtalar joints. The hardware appears intact. No acute fracture or dislocation is identified. IMPRESSION: Postoperative changes of an arthrodesis of the ankle and subtalar joints. No acute abnormality identified. Reviewed, Interpreted and Dictated by Risa Flor MD Transcribed by Fidelina Mccormick Authenticated and [facility]
[2023-09-29] MEDS: cefTRIAXone 1GM VIAL 1 GM IM (13:36)
[2023-09-29 14:42] LABS: Erythrocyte Sedimentation Rate 75 mm/hr (0-20)
== END 2023-09-29 13:45 | disposition home or self-care (01) ==
PROVIDERS: PCP Nurse Practitioner Family; Visit Provider Podiatrist
PROC: (CPT 15275; principal; 2023-09-29 13:00)
DX: T81.31XA Disruption of external operation (surgical) wound, not elsewhere classified, initial encounter (principal); E11.622 Type 2 diabetes mellitus with other skin ulcer; Z79.4 Long term (current) use of insulin; I25.10 Atherosclerotic heart disease of native coronary artery without angina pectoris; I10 Essential (primary) hypertension; Z79.899 Other long term (current) drug therapy
CPT/HCPCS: 15275; 73610; 80048; 82962; 85025; 85651; 86140; 87070; 87075; 87205; J0696; J3370; Q4101

== ENCOUNTER 2023-10-05 10:58 | Day surgery (SDC) | payer MEDICARE, BC, SELFPAY ==
[2023-10-05 12:06] VITALS: BP 130/76; RESP 18; TEMP 36.8; O2SAT 94; BMI 31.3
[2023-10-05 12:12] LABS: POC Glucose,Bedside 136 (70-110)
[2023-10-05] MEDS: GENTAMICIN 80 MG/2 ML VIAL (12:40)
--- NOTE | 2023-10-05 12:56 | EXP.OP.NOTE ---
Date of procedure: 10/05/23 Pre-op Diagnosis:: Left anterior ankle diabetic ulcer Left lateral foot post op surgical wound dehiscence Post-op Diagnosis:: Same Procedure performed:: Left ankle wound debridement Left foot wound debridement Application of wound graft (Organogenesis Apligraf) Surgeon:: Laya Moreno DPM Anesthesia: none Estimated blood loss (mL): 2 Clinical Note:: Patient is a 73-year-old diabetic male who initially underwent a left tibiotalar calcaneal arthrodesis on 07/06/2023. Patient has 2 separate wounds: left anterior ankle diabetic ulcer and left lateral foot/ankle post op surgical wound dehiscence. We discussed conservative versus surgical treatment options. Conservative treatment options include local wound care, oral and IV antibiotics, change in shoe wear, taping/padding, and off-loading. Patient has also had weekly wound debridements and biweekly wound VAC applications. Patient has failed conservative care. We discussed surgery for surgical wound debridement and application of wound graft. Patient understands that there is a chance that the foot may change shape after surgery. Patient understands that they could have wound healing complications including delayed healing and infection, which could warrant oral or IV antibiotics. We discussed that if the wound does not heal, it is possible that they may need a distal or more proximal amputation and could result in loss of digits, loss of partial foot or loss of leg. We discussed the risks and benefits in great detail. Other surgical risks include: prolonged pain and swelling, further infection requiring oral or IV antibiotics, delay in healing of soft tissue or bone, nerve or blood vessel damage, CRPS/RSD, DVT/PE, anesthesia complications, and even . All questions answered. Patient verbalized understanding. Consent obtained. Patient is currently taking Levo and Linezolid, WCx from 09/29/23 grew MSSA. Operative findings:: Two separate wounds: left anterior ankle diabetic ulcer and left lateral foot/ankle postop surgical wound dehiscence. The medial ankle skin irritation secondary to rubbing in the boot noted last week has improved. No drainage from the lateral incision. Minimal oleksandr wound maceration and erythema. No purulence or deep SOI noted. Sharp excisional debridement with curette, 15 blade and forceps full-thickness, bleeding noted. Post debridement: Left anterior ankle (diabetic) ulcer: extended full-thickness through skin into/including subq, no more exposed deep fascia over tibialis anterior tendon. Wound 100% granular, measured 4.5 x 1.5 x 0.15cm. Left lateral ankle (post op surgical wound dehiscence) wound: Full-thickness through skin into/including subq. No exposed bone or probe to bone/hardware. Post debridement: 100% granular, measured 5.2 x 3.4 x 0.2cm. Operative note:: On this date and time patient was deemed an appropriate surgical candidate. With informed consent signed, the patient was taken to the local procedure operating theater room. The patient was positioned supine. No anesthesia was induced. No tourniquet used. The left lower extremity was prepped and draped in normal sterile fashion. 1g IM Rocephin given. Left anterior ankle wound debridement: Sharp excisional full-thickness debridement with curette, 15 blade and forceps down to/including subcutaneous tissue. No deep fascia or bone exposed. Wound flushed with gentamicin irrigation. Skin cleansed with saline. Left lateral foot wound debridement: Sharp excisional full-thickness debridement with curette, 15 blade and forceps down to/including subcutaneous tissue. No deep fascia or bone exposed. Wound flushed with gentamicin irrigation. Skin cleansed with saline. Mastisol applied around the wound edges. Application #2 of Apligraf (Organogenesis wound graft): One graft was prepared in standard fashion. The graft was cut to size. The entire graft was utilized. The graft was placed over the two open wounds and secured with Steri-Strips. Adaptic was applied over the graft followed by dry sterile dressing to left foot/ankle. The patient tolerated the procedure well, without complications. Materials: Organogenesis Aligraf wound graft x1 Discharge/Plan: Ok to discharge home when ready and vss. Patient is to maintain dressing clean dry and intact. Elevate on two pillows. Non weight bearing to the left lower extremity in fracture boot/post op shoe with walker/RKS. [facility] PP[facility] in fx boot with DME as tolerated. Complete course of Levo 750mg, Linezolid 600mg x7d (09/29-10/06/23). Follow up in one week for wound debridement and graft application #3. Condition: stable Disposition: same day Complications:: None
[2023-10-05] MEDS: cefTRIAXone 1GM VIAL 1 GM IM (12:57)
[2023-10-05 13:04] VITALS: BP 136/70; PULSE 67; RESP 18; TEMP 36.4; O2SAT 95
[2023-10-05 13:05] VITALS: BP 136/70; PULSE 67; RESP 18; O2SAT 95
== END 2023-10-05 13:08 | disposition home or self-care (01) ==
PROVIDERS: PCP Nurse Practitioner Family; Visit Provider Podiatrist
PROC: (CPT 15275; principal; 2023-10-05 12:00)
DX: T81.31XA Disruption of external operation (surgical) wound, not elsewhere classified, initial encounter (principal); E11.622 Type 2 diabetes mellitus with other skin ulcer; L97.321 Non-pressure chronic ulcer of left ankle limited to breakdown of skin; Z79.84 Long term (current) use of oral hypoglycemic drugs; I10 Essential (primary) hypertension; E78.5 Hyperlipidemia, unspecified; I25.10 Atherosclerotic heart disease of native coronary artery without angina pectoris; Z79.899 Other long term (current) drug therapy
CPT/HCPCS: 15275; 82962; J0696; Q4101

== ENCOUNTER 2023-10-12 12:24 | Day surgery (SDC) | payer MEDICARE, BC, SELFPAY ==
[2023-10-07 15:04] VITALS: BMI 31.3
[2023-10-12 12:56] VITALS: BP 147/79; PULSE 65; RESP 18; TEMP 36.6; O2SAT 96; BMI 31.3
[2023-10-12 14:23] LABS: POC Glucose,Bedside 126 (70-110)
[2023-10-12 16:34] VITALS: BP 143/72; PULSE 59; RESP 16; TEMP 36.7; O2SAT 97
[2023-10-12] MEDS: cefTRIAXone 1GM VIAL 1 GM IM (16:42)
--- NOTE | 2023-10-12 17:28 | P.OP_ITS ---
Date of procedure: 10/12/23 Pre-op Diagnosis:: Left anterior ankle diabetic ulcer Left lateral foot wound Post-op Diagnosis:: Same Procedure performed:: Left anterior ankle wound debridement Left lateral foot wound debridement Application of graft (Apligraf) Surgeon:: Laya Mroeno DPM Anesthesia: none Estimated blood loss (mL): 1 Clinical Note:: Patient is a 73-year-old diabetic male who initially underwent a left tibiotalar calcaneal arthrodesis on 07/06/2023. Patient has 2 separate wounds: left anterior ankle diabetic ulcer and left lateral foot/ankle post op surgical wound dehiscence. We discussed conservative versus surgical treatment options. Conservative treatment options include local wound care, oral and IV antibiotics, change in shoe wear, taping/padding, and off-loading. Patient has also had weekly wound debridements and biweekly wound VAC applications. Patient has failed conservative care. We discussed surgery for surgical wound debridement and application of wound graft. Patient understands that there is a chance that the foot may change shape after surgery. Patient understands that they could have wound healing complications including delayed healing and infection, which could warrant oral or IV antibiotics. We discussed that if the wound does not heal, it is possible that they may need a distal or more proximal amputation and could result in loss of digits, loss of partial foot or loss of leg. We discussed the risks and benefits in great detail. Other surgical risks include: prolonged pain and swelling, further infection requiring oral or IV antibiotics, delay in healing of soft tissue or bone, nerve or blood vessel damage, CRPS/RSD, DVT/PE, anesthesia complications, and even . All questions answered. Patient verbalized understanding. Consent obtained. Operative findings:: Two separate wounds: left anterior ankle diabetic ulcer and left lateral foot/ankle postop surgical wound dehiscence. The graft has incorporated to both wounds. Minimal oleksandr wound maceration and erythema. No purulence or deep SOI noted. Sharp excisional debridement with curette, 15 blade and forceps full- thickness, bleeding noted. Post debridement: Left anterior ankle (diabetic) ulcer?2 separate wounds with a skin bridge between the wounds: extended full- thickness through skin, subcu. Tendon no longer exposed. Left anterior medial wound: 100% granular, 1.0 x 0.5 x 0.1cm. Left anterior lateral wound: 100% gra nular, measured 2.8 x 1.2 x 0.2cm. Left lateral ankle (post op surgical wound dehiscence) wound: Full-thickness through skin, subcu. No exposed bone or probe to bone/hardware. Post debridement: 100% granular, measured 4.2 x 3.4 x 0.2cm. Operative note:: On this date and time patient was deemed an appropriate surgical candidate. With informed consent signed, the patient was taken to the local procedure operating theater room. The patient was positioned supine. No anesthesia was induced. No tourniquet used. The left lower extremity was prepped and draped in normal sterile fashion. 1g IM Rocephin given. Left anterior ankle wound debridement: Sharp excisional full-thickness debridement with curette, 15 blade and forceps down to/including subcutaneous tissue. The anterior ankle now has 2 separate wounds. No deep fascia or bone exposed. Wound flushed with gentamicin irrigation. Skin cleansed with saline. Left lateral foot wound debridement: Sharp excisional full-thickness debridement with curette, 15 blade and forceps down to/including subcutaneous tissue. No deep fascia or bone exposed. Wound flushed with gentamicin irrigation. Skin c leansed with saline. Mastisol applied around the wound edges. Application of Apligraf (Organogenesis wound graft): One graft was prepared in standard fashion. The graft was cut to size. The entire graft was utilized. The graft was placed over the three open wounds and secured with Steri-Strips. Adaptic was applied over the graft. A dry sterile dressing was applied to left foot/ankle. The patient tolerated the procedure well, without complications. Materials: Organogenesis Aligraf wound graft x1 Discharge/Plan: Ok to discharge home when ready and vss. Patient is to maintain dressing clean dry and intact. Elevate on two pillows. Non weight bearing to the left lower extremity in fracture boot/post op shoe with walker/RKS. Ok to PWB in fx boot with walker for transfers. Completed Levo 750mg, Linezolid 600mg x7d (09/29-10/06/23). Follow up in next week outpatient in podiatry office for wound evaluation. Discussed holding on graft next week until office reevaluation. Condition: stable Disposition: same day Complications:: None
== END 2023-10-12 16:52 | disposition home or self-care (01) ==
PROVIDERS: PCP Nurse Practitioner Family; Visit Provider Podiatrist
PROC: (CPT 15271; principal; 2023-10-12 12:30)
DX: E11.622 Type 2 diabetes mellitus with other skin ulcer (principal); T81.31XA Disruption of external operation (surgical) wound, not elsewhere classified, initial encounter; Z79.84 Long term (current) use of oral hypoglycemic drugs; Z79.899 Other long term (current) drug therapy; I10 Essential (primary) hypertension; E78.5 Hyperlipidemia, unspecified; I25.10 Atherosclerotic heart disease of native coronary artery without angina pectoris
CPT/HCPCS: 15271; 82962; J0696; Q4101

== ENCOUNTER 2023-10-27 12:01 | Day surgery (SDC) | payer MEDICARE, BC, SELFPAY ==
[2023-10-27 12:10] VITALS: BP 140/74; PULSE 74; RESP 18; TEMP 36.5; O2SAT 100; BMI 31.0
[2023-10-27 12:18] LABS: POC Glucose,Bedside 164 (70-110)
[2023-10-27] MEDS: GENTAMICIN 80 MG/2 ML VIAL (13:02)
[2023-10-27 13:25] VITALS: BP 134/78; PULSE 55; RESP 18; O2SAT 95
--- NOTE | 2023-10-27 13:35 | P.OP_ITS ---
Date of procedure: 10/27/23 Pre-op Diagnosis:: Left anterior ankle diabetic ulcer Left lateral foot wound Post-op Diagnosis:: Same Procedure performed:: Left anterior ankle wound debridement Left lateral foot wound debridement Application of graft (Apligraf) Surgeon:: Laya Moreno DPM Anesthesia: none Estimated blood loss (mL): 1 Clinical Note:: Patient is a 73-year-old diabetic male who initially underwent a left tibiotalar calcaneal arthrodesis on 07/06/2023. Patient has 2 separate wounds: left anterior ankle diabetic ulcer and left lateral foot/ankle post op surgical wound dehiscence. We discussed conservative versus surgical treatment options. Conservative treatment options include local wound care, oral and IV antibiotics, change in shoe wear, taping/padding, and off-loading. Patient has also had weekly wound debridements and biweekly wound VAC applications. Patient has failed conservative care. We discussed surgery for surgical wound debridement and application of wound graft. Patient understands that there is a chance that the foot may change shape after surgery. Patient understands that they could have wound healing complications including delayed healing and infection, which could warrant oral or IV antibiotics. We discussed that if the wound does not heal, it is possible that they may need a distal or more proximal amputation and could result in loss of digits, loss of partial foot or loss of leg. We discussed the risks and benefits in great detail. Other surgical risks include: prolonged pain and swelling, further infection requiring oral or IV antibiotics, delay in healing of soft tissue or bone, nerve or blood vessel damage, CRPS/RSD, DVT/PE, anesthesia complications, and even . All questions answered. Patient verbalized understanding. Consent obtained. Operative findings:: Two separate wounds: left anterior ankle diabetic ulcer and left lateral foot/ankle postop surgical wound dehiscence. The graft has incorporated to both wounds. Minimal oleksandr wound maceration and no erythema. No purulence or deep SOI noted. Sharp excisional debridement with curette, 15 blade and forceps full- thickness, bleeding noted. Post debridement: Left anterior ankle (diabetic) ulcer extended full-thickness through skin, subcu, 100% granular, measured 4.0 x 0.7 x 0.1cm. Left lateral ankle (post op surgical wound dehiscence) wound: Full- thickness through skin, subcu. No exposed bone or probe to bone/hardware. Post debridement: 100% granular, measured 4.2 x 2.9 x 0.2cm. Operative note:: On this date and time patient was deemed an appropriate surgical candidate. With informed consent signed, the patient was taken to the local procedure operating theater room. The patient was positioned supine. No anesthesia was induced. No tourniquet used. The left lower extremity was prepped and draped in normal sterile fashion. Left anterior ankle wound debridement: Sharp excisional full-thickness debridement with curette, 15 blade and forceps down to/including subcutaneous tissue. The anterior ankle has no deep fascia or bone exposed. Wound flushed with gentamicin irrigation. Skin cleansed with saline. Left lateral foot wound debridement: Sharp excisional full-thickness debridement with curette, 15 blade and forceps down to/including subcutaneous tissue. No deep fascia or bone exposed. Wound flushed with gentamicin irrigation. Skin cleansed with saline. Mastisol applied around the wound edges. Application of Apligraf (Organogenesis wound graft): One graft was prepared in standard fashion. The graft was cut to size. The entire graft was utilized. The graft was placed over the two open wounds and secured with Steri-Strips. Adaptic was applied over the graft. A dry sterile dressing was applied to left foot/ankle. The patient tolerated the procedure well, without complications. Materials: Organogenesis Aligraf wound graft x1 Discharge/Plan: Ok to discharge home when ready and vss. Patient is to maintain dressing clean dry and intact. Elevate on two pillows. PWB in fx boot with walker. Completed Levo 750mg, Linezolid 600mg x7d (09/29-10/06/23). Follow up in next week outpatient in podiatry office for wound evaluation on 11/03/23. Condition: stable Disposition: same day Complications:: None
== END 2023-10-27 13:35 | disposition home or self-care (01) ==
PROVIDERS: PCP Nurse Practitioner Family; Visit Provider Podiatrist
PROC: (CPT 15271; principal; 2023-10-27 13:00)
DX: E11.622 Type 2 diabetes mellitus with other skin ulcer (principal); T81.31XA Disruption of external operation (surgical) wound, not elsewhere classified, initial encounter; I10 Essential (primary) hypertension; I25.10 Atherosclerotic heart disease of native coronary artery without angina pectoris; Z79.84 Long term (current) use of oral hypoglycemic drugs; Z79.899 Other long term (current) drug therapy
CPT/HCPCS: 15271; 82962; Q4101

== ENCOUNTER 2023-11-08 12:00 | Outpatient (CLI) | payer MEDICARE, BC, SELFPAY ==
--- NOTE | 2023-11-08 12:03 | XR_ITS ---
FINAL REPORT CLINICAL HISTORY: Diabetic foot ulcer..surgery COMPARISON: 09/29/2023 FINDINGS: LEFT ANKLE: Three views of the left ankle were obtained. There is no acute fracture or dislocation. There are postoperative changes from ankle and rear foot arthrodesis. Pes planus deformity is noted. There are mild and moderate degenerative changes. There is a plantar calcaneal spur. There is no soft tissue abnormality. IMPRESSION: Postoperative and degenerative changes without acute bony abnormality. Reviewed, Interpreted and Dictated by Carlton Braswell III, MD Transcribed by Mari Hinds Authenticated and [facility]
--- NOTE | 2023-11-08 12:03 | XR_ITS ---
FINAL REPORT CLINICAL HISTORY: Diabetic foot ulcer COMPARISON: 09/05/2023 FINDINGS: LEFT FOOT: Three views of the left foot were obtained. There is no acute fracture or dislocation. There are postoperative changes from ankle and rear foot arthrodesis. Pes planus deformity is noted. There are mild and moderate degenerative changes. A plantar calcaneal spur is noted. There is no soft tissue abnormality. IMPRESSION: Postoperative and degenerative changes without acute bony abnormality. Reviewed, Interpreted and Dictated by Carlton Braswell III, MD Transcribed by Mari Hinds Authenticated and [facility]
== END 2023-11-08 23:59 | disposition home or self-care (01) ==
LOC: RAD 12:01
PROVIDERS: PCP Nurse Practitioner Family; Visit Provider Nurse Practitioner
DX: E11.622 Type 2 diabetes mellitus with other skin ulcer; L97.329 Non-pressure chronic ulcer of left ankle with unspecified severity; Z79.84 Long term (current) use of oral hypoglycemic drugs; Z79.85 Long-term (current) use of injectable non-insulin antidiabetic drugs; M79.672 Pain in left foot
CPT/HCPCS: 73610; 73630

== ENCOUNTER 2023-11-23 13:18 | Outpatient (CLI) | payer MEDICARE, BC, SELFPAY ==
--- NOTE | 2023-11-23 13:19 | CT_ITS ---
FINAL REPORT TECHNIQUE: Thin section axial CT images with coronal and sagittal reformats were performed. This study was performed with techniques to keep radiation doses as low as reasonably achievable (ALARA). Individualized dose reduction techniques using automated exposure control or adjustment of mA and/or kV according to the patient''s size were employed. CLINICAL HISTORY: evaluate for TTC vs non-union COMPARISON: None FINDINGS: CT LEFT ANKLE: There has been previous arthrodesis of the ankle and subtalar joint. 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 There is no effusion present of the lateral malleolus with the talus. 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 IMPRESSION: Postsurgical changes of the ankle and subtalar joint as described. 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 Reviewed, Interpreted and Dictated by Risa Flor MD Transcribed by Fidelina Mccormick Authenticated and [facility]
== END 2023-11-23 23:59 | disposition home or self-care (01) ==
LOC: RAD 13:19
PROVIDERS: PCP Nurse Practitioner Family; Visit Provider Podiatrist
DX: M14.672 Charcot's joint, left ankle and foot (principal); E11.622 Type 2 diabetes mellitus with other skin ulcer; L97.329 Non-pressure chronic ulcer of left ankle with unspecified severity; Z98.890 Other specified postprocedural states; Z79.84 Long term (current) use of oral hypoglycemic drugs; Z79.85 Long-term (current) use of injectable non-insulin antidiabetic drugs; Z87.891 Personal history of nicotine dependence
CPT/HCPCS: 73700

== ENCOUNTER 2023-12-15 12:33 | Outpatient (CLI) | payer MEDICARE, BC, SELFPAY ==
[2023-12-15 12:53] LABS: Basophils # 0.1 K/mm3 (0-0.2); Basophils % 0.7 % (0.1-2.0); Eosinophils # 0.3 K/mm3 (0.0-0.4); Eosinophils % 3.8 % (0.1-12.0); Hematocrit 37.6 % (42.0-52.0); Hemoglobin 14.4 g/dL (14.1-18.0); Lymphocytes # 1.8 K/mm3 (0.7-4.5); Lymphocytes % 22.6 % (10-50); Mean Corpuscular HGB Conc 38.3 g/dL (31.8-35.4); Mean Corpuscular Hemoglobin 31.3 pg (27.0-31.2); Mean Corpuscular Volume 81.8 fl (80-94); Mean Platelet Volume 8.8 fl (7.4-10.4); Monocytes # 0.5 K/mm3 (0.1-1.0); Monocytes % 6.1 % (1.7-9.3); Neutrophils # 5.4 K/mm3 (1.8-7.8); Neutrophils % 66.7 % (37.0-80.0); Platelet Count 220 K/mm3 (142-424); Red Blood Count 4.59 M/mm3 (4.60-6.20); Red Cell Distribution Width 17.2 % (11.5-17.5); White Blood Count 8.1 K/mm3 (4.8-10.8)
[2023-12-15 13:41] LABS: Erythrocyte Sedimentation Rate 8 mm/hr (0-20)
[2023-12-15 14:26] LABS: Alanine Aminotransferase 25 U/L (12-78); Albumin Level 4.4 g/dl (3.5-5.0); Albumin/Globulin Ratio 1.4 (1.1-1.8); Alkaline Phosphatase 109 U/L (38-126); Anion Gap 12.9 mEq/L (5-15); Aspartate Amino Transferase 33 U/L (17-59); Bilirubin,Total 0.6 mg/dl (0.2-1.3); Blood Urea Nitrogen 13 mg/dl (9-20); Calcium 10.1 mg/dl (8.4-10.2); Carbon Dioxide 28 mmol/L (22.0-30.0); Chloride 103 mmol/L (98-107); Estimated Glomerular Filt Rate 65 ml/min (>60); GFR (African American) 79 ML/MIN (>60); Globulin 3.2 g/dL (1.3-3.2); Glucose 119 mg/dl (74-100); Potassium 3.9 mmoL/L (3.5-5.1); Sodium 140 mmol/L (136-145); Total Protein,Serum 7.6 g/dl (6.3-8.2)
[2023-12-15 14:31] LABS: C-Reactive Protein 8.3 mg/L (0-4)
[2023-12-15 14:56] LABS: Thyroid Stimulating Hormone 1.53 uIU/mL (0.465-4.68)
[2023-12-15 15:32] LABS: Vitamin B12 284 pg/mL (239-931)
[2023-12-15 15:34] LABS: Folate > 20.00 ng/mL
[2023-12-26 18:10] LABS: 1,25 Dihydroxy Vitamin D 40 pg/mL (.); 1,25-Dihydroxy, Vitamin D-2 23 pg/mL (.); 1,25-Dihydroxy, Vitamin D-3 17 pg/mL (.)
== END 2023-12-15 23:59 | disposition home or self-care (01) ==
LOC: LAB 12:34
PROVIDERS: PCP Nurse Practitioner Family; Visit Provider Podiatrist
DX: R60.9 Edema, unspecified (principal); E11.9 Type 2 diabetes mellitus without complications; M85.89 Other specified disorders of bone density and structure, multiple sites
CPT/HCPCS: 36415; 80053; 82607; 82652; 82746; 83036; 84443; 85025; 85651; 86140

== ENCOUNTER 2024-01-11 14:41 | Outpatient (CLI) | payer MEDICARE, BC, SELFPAY ==
--- NOTE | 2024-01-11 14:49 | XR_ITS ---
FINAL REPORT CLINICAL HISTORY: Pain COMPARISON: None FINDINGS: Two views of the left tibia/fibula were obtained. There are changes from knee arthroplasty. Postoperative changes are noted of the ankle. There is no acute fracture or dislocation. The joint spaces are intact. There is no soft tissue abnormality. IMPRESSION: Postoperative changes without acute bony abnormality. Reviewed, Interpreted and Dictated by Carlton Braswell III, MD Transcribed by Mari Hinds Authenticated and [facility]
--- NOTE | 2024-01-11 14:49 | XR_ITS ---
FINAL REPORT CLINICAL HISTORY: Foot Pain COMPARISON: None FINDINGS: LEFT FOOT Three views demonstrate postoperative changes from fusion of the tibiotalar and talocalcaneal joints. There has been interval progression of fusion. Pes planus deformity is present. There is no acute fracture or dislocation. There are moderate degenerative changes. There is a plantar calcaneal spur. The soft tissues are unremarkable. IMPRESSION: Postoperative and degenerative changes without acute bony abnormality. Reviewed, Interpreted and Dictated by Carlton Braswell III, MD Transcribed by Mari Hinds Authenticated and [facility]
--- NOTE | 2024-01-11 14:49 | XR_ITS ---
FINAL REPORT CLINICAL HISTORY: Ankle Pain COMPARISON: 11/08/2023 FINDINGS: LEFT ANKLE Three views demonstrate postoperative changes from fusion of the tibiotalar and talocalcaneal joints. There has been interval progression of fusion. Pes planus deformity is present. There is no acute fracture or dislocation. There are moderate degenerative changes. There is a plantar calcaneal spur. The soft tissues are unremarkable. IMPRESSION: Postoperative and degenerative changes without acute bony abnormality. Reviewed, Interpreted and Dictated by Carlton Braswell III, MD Transcribed by Mari Hinds Authenticated and [facility]
== END 2024-01-11 23:59 | disposition home or self-care (01) ==
LOC: RAD 14:46
PROVIDERS: PCP Nurse Practitioner Family; Visit Provider Podiatrist
DX: M79.673 Pain in unspecified foot (principal); G89.18 Other acute postprocedural pain; R60.9 Edema, unspecified
CPT/HCPCS: 73590; 73610; 73630

== ENCOUNTER 2024-01-13 15:00 | Outpatient (RCR) | payer MEDICARE, BC, SELFPAY ==
--- NOTE | 2023-10-17 16:01 | HMH.PTOPEV ---
PT Outpatient Evaluation Rehab PT Outpatient Evaluation Start: 10/17/23 15:38 Freq: Status: Active Protocol: Document 10/17/23 15:38 ERINN (Rec: 10/17/23 16:01 ERINN Laptop) E-signed By Taco Ahn, PT Outpatient Therapy Subjective History Subjective History This is the initial PT eval for Gerson Parmar, 73 yowm who presents with L ankle stiffness and weakness ~ 3 mos S/P L foot arch reconstruction complicated by poor post-op wound healing. He reports no c/o pain in his L LE at this time. I haven't really had any pain since the surgery. He continues to have two incisional wounds that require treatment, but he is doing well otherwise. He currently remains NWB on the L LE and presents wearing a cam walker and using a WKS. New diagnosis of cancer in past 12 No months? Chief Complaint Stiff,Weakness Prior Functional Limitations None Current Functional Limitations Standing,Walking,Balance Symptom Description Activity Dependent Level of pain today (0-10) 0 Pain scale - at its best (0-10) 0 Pain scale - at its worst (0-10) 1 Ankle/Foot Eval Palpation Tenderness left Ankle/Foot Palpation Overall Comment 0/4 TTP throughout L ankle ROM Ankle/Foot Dorsiflexion w/Knee Extended 0 Active Range Motion (degrees) Ankle/Foot Plantar Flexion Active Range 0-22 of Motion (degrees) Ankle/Foot Eversion Active Range of 0-12 Motion (degrees) Ankle/Foot Inversion Active Range of 0-2 Motion (degrees) MMT Ankle Dorsiflexion Strength Grade 2 Poor Ankle Plantarflexion Strength Grade 2 Poor Foot Eversion Strength Grade 2 Poor Foot Inversion Strength Grade 2 Poor Lower Extremity Functional Index Activities Today, do you or would you have any difficulty at all with: a.Any of your usual work, housework or Extreme difficulty or unable school activities to perform activity b. Your usual hobbies, recreational or Extreme difficulty or unable sporting activities to perform activity c. Getting into or out of the bath Extreme difficulty or unable to perform activity d. Walking between rooms A little bit of difficulty e. Putting on your shoes or socks Moderate difficulty f. Squatting Extreme difficulty or unable to perform activity g. Lifting an object, like a bag of Moderate difficulty groceries from the floor h. Performing light activities around Quite a bit of difficulty your home i. Performing heavy activities around Extreme difficulty or unable your home to perform activity j. Getting into or out of a car A little bit of difficulty k. Walking 2 blocks Extreme difficulty or unable to perform activity l. Walking a mile Extreme difficulty or unable to perform activity m. Going up or down 10 stairs (about 1 Extreme difficulty or unable flight of stairs) to perform activity n. Standing for 1 hour Extreme difficulty or unable to perform activity o. Sitting for 1 hour No difficulty p. Running on even ground Extreme difficulty or unable to perform activity q. Running on uneven ground Extreme difficulty or unable to perform activity r. Making sharp turns while running fast Extreme difficulty or unable to perform activity s. Hopping Extreme difficulty or unable to perform activity t. Rolling over in bed No difficulty LEFI Score Lower Extremity Functional Index Score 19 Outpatient Therapy Assessment Impairments Problems/Impairmments Palpation Tenderness,Impaired Range of Motion,Impaired Strength,Impaired Endurance, Impaired Transfers,Impaired Gait Pattern,Impaired Walking, Impaired Standing,Impaired Household Care,Impaired Stair Climbing,Impaired Incline Stepping,Impaired Balance, Impaired Self Care/Self Management Prognosis Rehab Potential Good Comment Skilled therapy services are indicated to improve pts ROM and strength while increasing his independent mobility without the reliance on an AD to aid his return to PLOF. Clinical Impression Consistent with Diagnosis Yes Short Term Goals Number of Weeks 4 Increase Range of Motion Yes: L ankle by 5 deg all dir Increase Strength Yes: L ankle >3/5 throughout Improve Gait Pattern with Assistive Yes Device Improve LEFI Score Yes: > 25 Patient to be Ind w/ HEP Yes Group Home Goals Number of Weeks 8 Increase Range of Motion Yes: L ankle by 10 deg all dir Increase Strength Yes: L ankle > 4/5 throughout Improve Gait Pattern without Assistive Yes: No gait abnormalities. Device Improve LEFI Score Yes: > 35 Patient to be Ind w/ Advanced HEP Yes Outpatient Therapy Plan of Care Treatment Plan May Include Therapeutic Exercise Including Home Yes Exercise Program Manual Therapy Techniques Yes Neuromuscular Re-education Yes Therapeutic Activities to Return to Yes Previous Functional/Work Level Gait Training Yes ADL/Self Care Education Yes Thermal Modalities Yes Electrical Stimulation Yes Ultrasound/Phonophoresis Yes Orthotics/Bracing/Splinting Yes Massage Yes Manual Lymphatic Drainage Yes Eval/Re-Eval Yes Frequency Times per week 2 Duration Number of Weeks 8 Addendums This patient is a candidate for social No or vocational rehab? Patient/Guardian verbally acknowledges Yes understanding of treatment program and consents to further treatment? Patient/Guardian verbally acknowledges Yes understanding of diagnosis, prognosis and goals for treatment? Eval Complexity PT Charges 51274 - High Complexity Shoulder/Elbow Eval Shoulder Objective Measurements Elbow Objective Measurements PHYSICIAN CERTIFICATION: I certify the specified therapy services for Gerson Parmar are required, authorized, and reviewed every 30 days.
--- NOTE | 2023-11-11 10:48 | HMH.RHREAS ---
Rehab Reassessment Rehab OP Re-assessment Start: 10/17/23 15:38 Freq: Status: Active Protocol: Document 11/11/23 10:41 ERINN (Rec: 11/11/23 10:47 PHORANGLE [id number]) E-signed By Taco Ahn PT Lower Extremity Functional Index Activities Today, do you or would you have any difficulty at all with: a.Any of your usual work, housework or Moderate difficulty school activities b. Your usual hobbies, recreational or Quite a bit of difficulty sporting activities c. Getting into or out of the bath Quite a bit of difficulty d. Walking between rooms A little bit of difficulty e. Putting on your shoes or socks A little bit of difficulty f. Squatting Quite a bit of difficulty g. Lifting an object, like a bag of Moderate difficulty groceries from the floor h. Performing light activities around Quite a bit of difficulty your home i. Performing heavy activities around Extreme difficulty or unable your home to perform activity j. Getting into or out of a car A little bit of difficulty k. Walking 2 blocks Quite a bit of difficulty l. Walking a mile Extreme difficulty or unable to perform activity m. Going up or down 10 stairs (about 1 Extreme difficulty or unable flight of stairs) to perform activity n. Standing for 1 hour Extreme difficulty or unable to perform activity o. Sitting for 1 hour No difficulty p. Running on even ground Extreme difficulty or unable to perform activity q. Running on uneven ground Extreme difficulty or unable to perform activity r. Making sharp turns while running fast Extreme difficulty or unable to perform activity s. Hopping Extreme difficulty or unable to perform activity t. Rolling over in bed No difficulty LEFI Score Lower Extremity Functional Index Score 26 Rehab Re-assessment Subjective Subjective Pt has no c/o pain in the L foot currently, but he does report some mild increased pain on the lateral side of his foot with any weightbearing out of his cam walker. Objective Objective Notes L ankle PROM (in deg): DF= 0-3 , PF= 0-24, EVER= 0-13, INV= 0 -4 L ankle MMT: Grossly 3/5 in all dir except INV remains 2/5 . Ambulation: Pt tolerating ambulation in Cam Walker with RW without increased pain or antalgic gait pattern. Assessment Progress Assessment Progressing as Expected Assessment Notes Pt has improved his mobility significantly with increased strength and ROM of the L ankle slightly. He continues to need skilled therapyservices to return to prior level of function and ambulate without AD. Patient goals met ST LT/[address]/5 LT/5 Plan Plan Continue per initial POC. Frequency of Therapy 2 x/wk Duration of therapy 4 wks Time and Billing Re-Eval Time 12 Re-Eval Billing Units 0 PHYSICIAN CERTIFICATION: I certify the specified therapy services for Gerson Parmar are required, authorized, and reviewed every 30 days.
--- NOTE | 2023-12-15 15:49 | HMH.RHREAS ---
Rehab Reassessment Rehab OP Re-assessment Start: 10/17/23 15:38 Freq: Status: Active Protocol: Document 12/15/23 15:42 PHORANGLE (Rec: 12/15/23 15:49 PHORNE [id number]) E-signed By Taco Ahn PT Lower Extremity Functional Index Activities Today, do you or would you have any difficulty at all with: a.Any of your usual work, housework or A little bit of difficulty school activities b. Your usual hobbies, recreational or A little bit of difficulty sporting activities c. Getting into or out of the bath A little bit of difficulty d. Walking between rooms A little bit of difficulty e. Putting on your shoes or socks A little bit of difficulty f. Squatting Moderate difficulty g. Lifting an object, like a bag of A little bit of difficulty groceries from the floor h. Performing light activities around A little bit of difficulty your home i. Performing heavy activities around A little bit of difficulty your home j. Getting into or out of a car No difficulty k. Walking 2 blocks Moderate difficulty l. Walking a mile Extreme difficulty or unable to perform activity m. Going up or down 10 stairs (about 1 Moderate difficulty flight of stairs) n. Standing for 1 hour Moderate difficulty o. Sitting for 1 hour No difficulty p. Running on even ground Extreme difficulty or unable to perform activity q. Running on uneven ground Extreme difficulty or unable to perform activity r. Making sharp turns while running fast Extreme difficulty or unable to perform activity s. Hopping Extreme difficulty or unable to perform activity t. Rolling over in bed No difficulty LEFI Score Lower Extremity Functional Index Score 44 Rehab Re-assessment Subjective Subjective Patient reports being in more pain recently which started on this following Tuesday, he mentioned that the pain is occurring on the outside of his ankle and is sharp. He mentioned that at night the pain has woke him up several times. Patient also saw Dr. Parkinson today for a follow up visit, she mentioned that the pain could likely be due to a nerve irritation. Patient is still walking in the boot but now has complaints of pain when walking in the boot. Objective Objective Notes L ankle PROM (in deg): DF= 0-3 , PF= 0-24, EVER= 0-13, INV= 0 -4 L ankle MMT: Grossly 3+/5 in all dir except INV remains 3/5 . (within available ROM) Ambulation: Pt tolerating ambulation in Cam Walker without AD. He does have mildly antalgic gait pattern on the L LE during stance phase of gait. Assessment Progress Assessment Progressing as Expected Assessment Notes Pt with considerable increase in pain with increased amounts of ambulation without an AD. He continues to have difficulty with all ADLs involving standing. He needs continued strengthening and gait training to return to PLOF. Patient goals met ST/5 LT/5 Plan Plan Continue per initial POC. Frequency of Therapy 2 x/wk Duration of therapy 4 wks Time and Billing Re-Eval Time 11 Re-Eval Billing Units 0 PHYSICIAN CERTIFICATION: I certify the specified therapy services for Gerson Parmar are required, authorized, and reviewed every 30 days.
== END 2024-01-13 23:59 | disposition home or self-care (01) ==
LOC: PT 15:00
PROVIDERS: Visit Provider Podiatrist
DX: R60.0 Localized edema (principal)
CPT/HCPCS: 97110; 97112; 97140; 97163; 97164; 97530

== ENCOUNTER 2024-04-16 11:57 | Emergency (ER) | payer MEDICARE, BC, SELFPAY ==
[2024-04-16] VITALS (8 sets, daily range): BP systolic 135–163; BP diastolic 72–94; PULSE 54–64; RESP 16–20; TEMP 36.6; O2SAT 95–100; BMI 29.7
--- NOTE | 2024-04-16 12:08 | ECG_ITS ---
APPROVED REPORT Exam: Resting ECG HR:58 bpm ECG Measurements Heart Rate 58 AXES SD 176 P 29 QRSd 97 QRS 45 QT 414 T 61 QTc 410 Conclusion SINUS BRADYCARDIA NONSPECIFIC T-WAVE ABNORMALITY BORDERLINE ECG UNCONFIRMED REPORT Electronically signed by : VEE OVALLE, 04/17/2024 06:49:15
--- NOTE | 2024-04-16 12:41 | CT_ITS ---
PROCEDURE INFORMATION: Exam: CTA Head With Contrast, Arteriography Exam date and time: 04/16/2024 1:15 PM Age: 74 years old Clinical indication: Vertigo; Additional info: New onset vertigo TECHNIQUE: Imaging protocol: Computed tomographic angiography of the head with contrast. Exam focused on the arteries. 3D rendering (Not supervised by radiologist): MIP and/or 3D reconstructed images were created by the technologist. Radiation optimization: All CT scans at this facility use at least one of these dose optimization techniques: automated exposure control; mA and/or kV adjustment per patient size (includes targeted exams where dose is matched to clinical indication); or iterative reconstruction. Contrast material: ISOVUE 370; Contrast volume: 85 ml; Contrast route: INTRAVENOUS (IV); COMPARISON: CT HEAD/BRAIN WO CON 04/16/2024 1:12 PM FINDINGS: ANTERIOR CIRCULATION: Right internal carotid artery: There is mild stenosis of the cavernous segment secondary to calcified plaque. Right middle cerebral artery: No occlusion or significant stenosis. No aneurysm. Right anterior cerebral artery: No occlusion or significant stenosis. No aneurysm. Left internal carotid artery: Intracranial segment is patent with no significant stenosis. No aneurysm. Left middle cerebral artery: No occlusion or significant stenosis. No aneurysm. Left anterior cerebral artery: No occlusion or significant stenosis. No aneurysm. POSTERIOR CIRCULATION: Right vertebral artery: No occlusion or significant stenosis. No aneurysm. Left vertebral artery: No occlusion or significant stenosis. No aneurysm. Basilar artery: No occlusion or significant stenosis. No aneurysm. Right posterior cerebral artery: No occlusion or significant stenosis. No aneurysm. Left posterior cerebral artery: No occlusion or significant stenosis. No aneurysm. Brain: No definite mass, mass effect, or midline shift. Cerebral ventricles: No ventriculomegaly. Bones/joints: Unremarkable. No acute fracture. Soft tissues: Unremarkable. IMPRESSION: Mild right internal carotid artery stenosis. Otherwise patent [id number].
--- NOTE | 2024-04-16 12:41 | CT_ITS ---
PROCEDURE INFORMATION: Exam: CTA Neck With Contrast Exam date and time: 04/16/2024 1:15 PM Age: 74 years old Clinical indication: Vertigo; Additional info: New onset vertigo TECHNIQUE: Imaging protocol: Computed tomographic angiography of the neck with contrast. Exam focused on the cervical segments of the vasculature. 3D rendering (Not supervised by radiologist): MIP and/or 3D reconstructed images were created by the technologist. Radiation optimization: All CT scans at this facility use at least one of these dose optimization techniques: automated exposure control; mA and/or kV adjustment per patient size (includes targeted exams where dose is matched to clinical indication); or iterative reconstruction. Contrast material: ISOVUE 370; Contrast volume: 85 ml; Contrast route: INTRAVENOUS (IV); COMPARISON: CT ANGIO HEAD 04/16/2024 1:15 PM FINDINGS: Right common carotid artery: There is mild to moderate plaque at the right carotid bulb and bifurcation. The right common carotid artery is otherwise patent. Right internal carotid artery: No stenosis of the extracranial segment. No dissection or occlusion. Right external carotid artery: No occlusion or stenosis of the origin. Left common carotid artery: There is mild to moderate plaque at the left carotid bulb and bifurcation. The left common carotid artery is otherwise patent. Left internal carotid artery: No stenosis of the extracranial segment. No dissection or occlusion. Left external carotid artery: No occlusion or stenosis of the origin. Right vertebral artery: No stenosis. No dissection or occlusion. Left vertebral artery: No stenosis. No dissection or occlusion. Left subclavian artery: There is mild stenosis at the origin of the left subclavian artery secondary to calcified plaque. Soft tissues: Normal. No significant soft tissue swelling. Bones/joints: No acute fracture. IMPRESSION: No significant carotid or vertebral artery stenosis. REFERENCES: NASCET CRITERIA. The degree of stenosis in the cervical segment of the internal carotid artery is based on NASCET criteria. Normal is no stenosis. Mild is less than 50% stenosis. Moderate is 50-69% stenosis. Severe is 70% to 99% stenosis. Total occlusion is no detectable patent lumen.
--- NOTE | 2024-04-16 12:41 | CT_ITS ---
PROCEDURE INFORMATION: Exam: CT Head Without Contrast Exam date and time: 04/16/2024 1:12 PM Age: 74 years old Clinical indication: Dizziness and other: Vertigo; Additional info: New onset vertigo TECHNIQUE: Imaging protocol: Computed tomography of the head without contrast. Radiation optimization: All CT scans at this facility use at least one of these dose optimization techniques: automated exposure control; mA and/or kV adjustment per patient size (includes targeted exams where dose is matched to clinical indication); or iterative reconstruction. COMPARISON: CT HEAD/BRAIN WO CON 04/16/2024 1:12 PM FINDINGS: Brain: There is no evidence of acute parenchymal hemorrhage, extra-axial collection, or acute infarction. There is no mass effect, midline shift, or downward herniation. Cerebral ventricles: No ventriculomegaly. Paranasal sinuses: Visualized sinuses are unremarkable. No fluid levels. Mastoid air cells: Visualized mastoid air cells are well aerated. Bones: Unremarkable. No acute fracture. Soft tissues: Unremarkable. IMPRESSION: No acute intracranial abnormality.
--- NOTE | 2024-04-16 12:49 | HMH.EDGENADL ---
Discharge Plan Disposition Patient Disposition: Home, Self-Care Condition: Good Prescriptions Prescriptions: New ciprofloxacin-dexamethasone 0.3-0.1 % drops,suspension 4 drp Ear-Left BID 7 Days Qty: 7.5 0RF meclizine 25 mg tablet 25 mg PO TID PRN (Reason: dizziness) Qty: 20 0RF No Action amlodipine 5 mg tablet 5 mg PO DAILY metformin 500 mg tablet 500 mg PO BID losartan-hydrochlorothiazide 100-25 mg tablet 1 tab PO DAILY simvastatin 40 mg tablet 40 mg PO DAILY celecoxib 200 mg capsule 200 mg PO DAILY aspirin 81 mg capsule 81 mg PO DAILY Trulicity 0.75 mg/0.5 mL pen injector 0.75 ml SQ WEEKLY Centrum Silver Men 300-600-300 mcg tablet 1 tab PO DAILY diphenhydramine-acetaminophen [Tylenol PM Extra Strength] 25-500 mg tablet 1 tab PO HS PRN (Reason: Pain) potassium chloride 10 mEq tablet extended release 10 meq PO DAILY venlafaxine 75 mg capsule,extended release 24hr 75 mg PO DAILY (DME) OneTouch Ultra Test Strip See Rx Instructions .ROUTE .MEDSUPPLY Qty: 10 Rx Instructions: As directed cholestyramine-aspartame [Prevalite] 4 gram powder in packet 1 ea PO DAILY ergocalciferol (vitamin D2) [Vitamin D2] 1,250 mcg (50,000 unit) capsule 1,250 mcg PO WEEKLY 90 Days Qty: 13 3RF gabapentin 100 mg capsule 100 mg PO TID PRN (Reason: nerve pain) 10 Days Qty: 30 0RF Ozempic 0.25 mg or 0.5 mg (2 mg/3 mL) pen injector 0.25 mg SQ WEEKLY Rx Instructions: for 4 weeks Jardiance 10 mg tablet 10 mg PO DAILY omeprazole 40 mg Capsule,Delayed Release(Dr/Ec) 40 mg PO DAILY cholecalciferol (vitamin D3) [Vitamin D3] 25 mcg (1,000 unit) Tablet,Chewable 25 mcg PO DAILY Probiotic 3 billion cell Capsule 3,000 mmu cells PO DAILY Rx Instructions: administer with a meal Referrals Follow up/Referrals: Nickie Bullock APRN [Primary Care Provider] - See instructions Diane Johnson APRN [Nurse Practitioner] - See instructions Activity Restrictions/Add. Instructions Additional Instructions/Restrictions: You were evaluated in the emergency department today. At this time, we feel that your issues are likely the cause of your vertigo. 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 Follow-up closely with ENT as well as with your primary care provider. Return to the emergency department for new or worsening symptoms. You were incidentally found to have some narrowing of your right internal carotid artery, which is a blood vessel that leads to your brain. There is nothing to do about this except follow-up closely with primary care. You are already on medical management for this, which consist of aspirin and a statin. Clinical Impressions Clinical Impression: Stenosis of right internal carotid artery, Vertigo, Cerumen impaction, External otitis of left ear, Hypokalemia Instructions Patient Instructions: DI for Vertigo, DI for Otitis Externa Print Language Print Language: Serbian Discharge ED Provider: Aidee Stokes General Adult HPI General Chief complaint: Dizziness Stated complaint: dizziness x2 weeks Time Seen by Provider: 04/16/24 12:11 Mode of Arrival: Ambulatory Source of Information: Patient Limitations: No Limitations Description of Symptoms (Recalled from ER Triage Doc. by RN): pt c/o dizziness and lightheadedness x14d. pt denies pain. pt also states that it feels like his L ear is stopped up. pt denies LOC during this time. History of Present Illness HPI narrative: This patient is a 74-year-old male with a history of type 2 diabetes, hypertension, hyperlipidemia, GERD, CAD presenting to the emergency department for evaluation with concern for vertigo. Patient states that he feels like his left ear is stopped up. He notes that he has been dizzy for about 2 weeks now. Its intermittent. It comes on with position changes and sometimes randomly. It is self-limited and resolves very quickly. He denies experiencing any like this in the past. No headache, vision changes, numbness, tingling, unilateral weakness, or other concerns. No significant gait disturbance or balance issues. No fevers, chills, or other concerns. Related Data Home Medications ?Medication ?Instructions ?Recorded ?Confirmed amlodipine 5 mg tablet 5 mg PO DAILY 04/07/21 02/21/24 aspirin 81 mg capsule 81 mg PO DAILY 04/07/21 02/21/24 celecoxib 200 mg capsule 200 mg PO DAILY 04/07/21 02/21/24 diphenhydramine 25 1 tab PO HS PRN Pain 04/07/21 02/21/24 mg-acetaminophen 500 mg tablet (Tylenol PM Extra Strength) dulaglutide 0.75 mg/0.5 mL 0.75 ml SQ WEEKLY 04/07/21 02/21/24 subcutaneous pen injector (Trulicity) losartan 100 1 tab PO DAILY 04/07/21 02/21/24 mg-hydrochlorothiazide 25 mg tablet metformin 500 mg tablet 500 mg PO BID 04/07/21 02/21/24 menbjnrd-gb-szbji 300 mcg-K 60 1 tab PO DAILY 04/07/21 02/21/24 mcg-lycop 600 mcg-lutein 300 mcg tablet (Centrum Silver Men) simvastatin 40 mg tablet 40 mg PO DAILY 04/07/21 02/21/24 potassium chloride 10 mEq 10 meq PO DAILY 08/12/21 02/21/24 tablet,extended release blood sugar diagnostic (OneTouch #10 ea 04/14/23 02/21/24 Ultra Test strips) cholestyramine-aspartame 4 gram 1 ea PO DAILY 04/14/23 02/21/24 oral powder for susp in a packet (Prevalite) venlafaxine 75 mg capsule,extended 75 mg PO DAILY 04/14/23 02/21/24 release 24 hr empagliflozin 10 mg tablet 10 mg PO DAILY 07/06/23 02/21/24 (Jardiance) cholecalciferol (vitamin D3) 25 25 mcg PO DAILY 09/27/23 02/21/24 mcg (1,000 unit) chewable tablet (Vitamin D3) lactobacillus combination no.4 3 3,000 mmu cells PO DAILY 09/27/23 02/21/24 billion cell capsule (Probiotic) omeprazole 40 mg capsule,delayed 40 mg PO DAILY 09/27/23 02/21/24 release semaglutide 0.25 mg or 0.5 mg (2 0.25 mg SQ WEEKLY 01/25/24 02/21/24 mg/3 mL) subcutaneous pen injector (Ozempic) Previous Rx's ?Medication ?Instructions ?Recorded ergocalciferol (vitamin D2) 1,250 1,250 mcg PO WEEKLY low vit D 3 04/14/23 mcg (50,000 unit) capsule (Vitamin months #13 caps D2) gabapentin 100 mg capsule 100 mg PO TID PRN nerve pain 12/15/23 days #30 caps ciprofloxacin 0.3 %-dexamethasone 4 drp Ear-Left BID 7 days #7.5 mL 04/16/24 0.1 % ear drops,suspension meclizine 25 mg tablet 25 mg PO TID PRN dizziness #20 tabs 04/16/24 Allergies Allergy/AdvReac Type Severity Reaction Status Date / Time latex Allergy Rash Verified 04/16/24 12:12 [facility] Disclaimer: The information contained in this section may have been updated after the patient was seen, as this information can be updated by other users. Medical History History of COVID-19 History of tonsillitis Arthritis GERD (gastroesophageal reflux disease) Diabetes HLD (hyperlipidemia) HTN (hypertension) CAD (coronary artery disease) Abnormal stress test Surgical History History of ankle surgery History of knee replacement History of appendectomy History of cholecystectomy History of hernia repair History of cardiac cath Family History Other Family history of cancer Family history of diabetes mellitus Family history of heart disease Social History Smoking Status: Never smoker alcohol intake: former substance use type: denies use current occupational status: retired Travel in the last 8 weeks: None Other Medical History Have you received the Flu Vaccine for this season: No Have you received the Pneumonia Vaccine: Yes ROS Obtained: Yes All systems reviewed & no additional complaints except as documented Physical Exam General General appearance: alert and in no apparent distress Head Head exam: atraumatic and normocephalic Eye Eye exam: Present normal appearance, PERRL, EOMI and nystagmus (Unidirectional horizontal beating nystagmus that is self-limited) ENT ENT exam: Present normal exam, normal oropharynx, mucous membranes moist and normal external ear exam Expanded ENT Exam TM/Canal exam: Left TM: cerumen impaction Neck Neck exam: Present normal inspection, full ROM and trachea midline; Absent tenderness Chest Chest inspection: Present normal inspection and symmetric chest wall rise; Absent tenderness Respiratory Respiratory exam: Present normal lung sounds bilaterally; Absent respiratory distress, wheezes, stridor or accessory muscle use Cardiovascular Cardiovascular exam: Present regular rate and normal rhythm Abdominal Exam Abdominal exam: Present soft; Absent distention, tenderness or guarding Extremities Exam Extremities exam: Present normal inspection, full ROM and normal capillary refill; Absent tenderness or edema Back Exam Back exam: Present normal inspection and full ROM; Absent tenderness Neurological Exam Neurological exam: Present alert, oriented X3, CN II-XII intact and normal gait; Absent motor sensory deficit Psychiatric Psychiatric exam: Present normal affect and normal mood Skin Skin exam: Present warm and dry Medical Decision Making Medical Records Medical records reviewed: Yes I reviewed the patient's medical records. Screening: Per USPSTF and CDC recommendations, given the prevalence of disease in our region, it is our hospital?s policy to screen for HIV and viral Hepatitis for all patients aged 18 and over and those with ongoing risk factors. Pasquale Inquiry Pt receiving controlled substance: No Vital Signs: 04/16/24 12:03 04/16/24 12:07 04/16/24 12:30 Temperature 97.8 F Temperature Source Oral Pulse Rate 61 64 Pulse Rate [Left] 61 Respiratory Rate 18 20 18 Blood Pressure 163/84 H 135/72 Blood Pressure [Right Arm] 163/84 H Blood Pressure Mean 110 97 Blood Pressure Mean [Right Arm] 110 Blood Pressure Source [Right Arm] Automatic Cuff Blood Pressure Position [Right Arm] Sitting 02 Sat by Pulse Oximetry 97 97 95 Oxygen Delivery Method Room Air 04/16/24 13:00 04/16/24 13:30 04/16/24 14:01 Temperature Temperature Source Pulse Rate 62 58 L 61 Pulse Rate [Left] Respiratory Rate 16 Blood Pressure 138/72 147/83 H 138/94 H Blood Pressure [Right Arm] Blood Pressure Mean 99 104 109 Blood Pressure Mean [Right Arm] Blood Pressure Source [Right Arm] Blood Pressure Position [Right Arm] 02 Sat by Pulse Oximetry 98 100 98 Oxygen Delivery Method 04/16/24 14:30 04/16/24 14:45 Temperature 97.8 F Temperature Source Pulse Rate 54 L 61 Pulse Rate [Left] Respiratory Rate 18 Blood Pressure 151/75 H 151/75 H Blood Pressure [Right Arm] Blood Pressure Mean 100 Blood Pressure Mean [Right Arm] Blood Pressure Source [Right Arm] Blood Pressure Position [Right Arm] 02 Sat by Pulse Oximetry 98 Oxygen Delivery Method Room Air Lab Data Lab results reviewed: Yes I reviewed the patient's lab results. Lab Results 04/16/24 12:15: WBC 6.7, RBC 5.49, Hgb 14.8, Hct 43.8, MCV 79.7 L, MCH 27.0, MCHC 33.9, RDW 16.3, Plt Count 214, MPV 8.4, Neut % (Auto) 66.0, Lymph % (Auto) 24.1, [place] % (Auto) 5.8, Eos % (Auto) 3.2, Baso % (Auto) 1.0, Neut # (Auto) 4.4, Lymph # (Auto) 1.6, [place] # (Auto) 0.4, Eos # (Auto) 0.2, Baso # (Auto) 0.1, Sodium 138, Potassium 3.1 L, Chloride 101, Carbon Dioxide 26, Anion Gap 14.1, BUN 11, Creatinine 1.10, Estimated Creat Clear 71, Estimated GFR 65, Est GFR ( Amer) 79, Glucose 207 H, Calcium 9.7, Total Bilirubin 0.9, AST 39, ALT 28, Alkaline Phosphatase 107, Total Protein 7.9, Albumin 4.4, Globulin 3.5 H, Albumin/Globulin Ratio 1.3, HIV 1&2 Antibody Rapid Nonreactive 04/16/24 12:15 04/16/24 12:15 Orders (Tests/Meds): ED MEDICATIONS Discontinued Medications Generic Name Dose Route Start Last Admin Trade Name Yany PRN Reason Stop Dose Admin Docusate Sodium 250 mg 04/16/24 12:44 04/16/24 13:05 Docusate Sodium 250mg Capsule PO 04/16/24 12:45 250 mg ONCE ONE Administration Fluticasone Propionate 1 spray 04/16/24 12:42 04/16/24 13:05 Fluticasone Prop 50mcg Nasal [place] 16gm NS 04/16/24 12:43 1 spray ONCE ONE Administration Potassium Chloride/Water 100 mls @ 100 mls/hr 04/16/24 13:07 04/16/24 13:18 Potassium Chloride 10meq/100ml Ivpb IV 04/16/24 14:06 100 mls/hr ONCE ONE Administration Sodium Chloride 1,000 mls @ 500 mls/hr 04/16/24 13:15 04/16/24 13:18 Sod Chlor 0.9% 1000ml Bag IV 05/16/24 13:14 500 mls/hr .Q2H ANAID Administration Iopamidol 80 ml 04/16/24 13:16 04/16/24 13:18 Iopamidol-370 (76%);100ml Bottle IV 04/16/24 13:17 80 ml ONCE ONE Administration Meclizine HCl 25 mg 04/16/24 12:41 04/16/24 13:05 Meclizine 25mg Tablet PO 04/16/24 12:42 25 mg ONCE ONE Administration Potassium Chloride 40 meq 04/16/24 13:07 04/16/24 13:18 Potassium Chloride 20meq Tab PO 04/16/24 13:08 40 meq ONCE ONE Administration Prednisone 40 mg 04/16/24 12:41 04/16/24 13:05 Prednisone 20mg Tab PO 04/16/24 12:42 40 mg ONCE ONE Administration Sodium Chloride 50 ml 04/16/24 13:16 04/16/24 13:18 0.9 % Sodium Chloride 50 Ml Vial IV 04/16/24 13:17 50 ml ONCE ONE Administration Sodium Chloride 10 ml 04/16/24 13:16 Sodium Chloride 0.9% 10ml Syr (Rad Only) IV 05/16/24 13:15 NEEDED PRN Maintain IV Site ORDERS Category Date Time Status CT angio head Stat Cat Scan 04/16/24 12:[address] angio neck Stat Cat Scan 04/16/24 12:[address] head/brain wo con Stat Cat Scan 04/16/24 12:41 Completed Complete Blood Count Auto Diff Stat Lab 04/16/24 12:15 Completed Comprehensive Metabolic Panel Stat Lab 04/16/24 12:15 Completed HIV (1&2) Antibody Rapid Stat Lab 04/16/24 12:15 Completed Hep C Ab with Reflex to RNA Stat Lab 04/16/24 12:15 Received ECG Data Tracing #1: I reviewed this ECG and interpreted as documented below: Sinus bradycardia with a ventricular to 58 bpm. Nonspecific T wave abnormality without acute ST changes concerning for ischemia. Normal axis and intervals. ECG initial impression date: 04/16/24 ECG initial impression time: 12:10 Medical Decision Narrative: In summary, this patient is a 74-year-old male presenting to the Emergency Department for evaluation of dizziness as well as left ear fullness. Differential diagnoses considered include but are not limited to central vertigo, BPPV, M?ni?re's disease, labrynthitis, otitis. Ruling out the most morbid conditions drove assessment. It should be noted patient's history includes hypertension, hyperlipidemia, diabetes, CAD which may or may not be at goal therapy. This complicates all aspects of care by increasing patient's risk for morbidity. I reviewed patient's past medical records and noted previous podiatry evaluations for diabetic foot wound. On exam, the patient is lying in bed in no acute distress. He has unidirectional horizontal beating nystagmus that is self-limiting, and history and exam are overall reassuring for peripheral cause of vertigo. He does have significant amount of wax occluding left ear canal. He is agreeable for irrigation of the left ear, so Colace was ordered to help soften the wax. Given his age and risk factors, I did decide to go ahead and obtain stroke CT scans to rule out possible central cause of vertigo or mass, though I feel these are unlikely based on reassuring history and neurologic exam. Workup included basic lab evaluation and EKG as well. EKG obtained is reassuring. Patient was given oral meclizine, prednisone, as well as Flonase nasal spray for symptomatic improvement. I independently interpreted CT scan prior to the radiologist read and noted no obvious large vessel occlusion. Please see their read for final interpretation. They noted mild internal carotid stenosis but patient is already on aspirin, statin, and is medically optimized. He can follow-up outpatient for this. Labs were obtained that demonstrated hypokalemia, for which IV and oral replacement were ordered. Labs are otherwise reassuring. On reassessment, patient had good improvement after administration of event as above. We were unable to irrigate much out of his ear, but I did use a curette to try and clear it out. I cut out a lot of white/ purulent material and noted his ear canal was significantly irritated.. Given this, concern for potential otitis externa. Will plan to to treat with Ciprodex. Ultimately he is feeling a lot better and exam is reassuring. I feel he likely has peripheral vertigo caused by this ear issue. He was discharged home with prescriptions for meclizine, Ciprodex, instructions for close follow-up with ENT and PCP, and very strict return precautions. Critical Care Critical Care Time Critical Care Time: No
--- NOTE | 2024-04-16 12:50 | PC.NURSE ---
I rounded on the pt. no new complaints at this time. call strickland in reach.
[2024-04-16 12:53] LABS: Basophils # 0.1 K/mm3 (0-0.2); Eosinophils # 0.2 K/mm3 (0.0-0.4); Eosinophils % 3.2 % (0.1-12.0); Hematocrit 43.8 % (42.0-52.0); Hemoglobin 14.8 g/dL (14.1-18.0); Lymphocytes # 1.6 K/mm3 (0.7-4.5); Lymphocytes % 24.1 % (10-50); Mean Corpuscular HGB Conc 33.9 g/dL (31.8-35.4); Mean Corpuscular Volume 79.7 fl (80-94); Mean Platelet Volume 8.4 fl (7.4-10.4); Monocytes # 0.4 K/mm3 (0.1-1.0); Monocytes % 5.8 % (1.7-9.3); Neutrophils # 4.4 K/mm3 (1.8-7.8); Platelet Count 214 K/mm3 (142-424); Red Blood Count 5.49 M/mm3 (4.60-6.20); Red Cell Distribution Width 16.3 % (11.5-17.5); White Blood Count 6.7 K/mm3 (4.8-10.8)
[2024-04-16 12:57] LABS: Albumin Level 4.4 g/dl (3.5-5.0); Chloride 101 mmol/L (98-107); Potassium 3.1 mmoL/L (3.5-5.1); Sodium 138 mmol/L (136-145)
[2024-04-16 13:00] LABS: Alanine Aminotransferase 28 U/L (12-78); Albumin/Globulin Ratio 1.3 (1.1-1.8); Alkaline Phosphatase 107 U/L (38-126); Anion Gap 14.1 mEq/L (5-15); Aspartate Amino Transferase 39 U/L (17-59); Bilirubin,Total 0.9 mg/dl (0.2-1.3); Blood Urea Nitrogen 11 mg/dl (9-20); Calcium 9.7 mg/dl (8.4-10.2); Carbon Dioxide 26 mmol/L (22.0-30.0); Creatinine Clearance Estimated 71 mL/min (50-200); Estimated Glomerular Filt Rate 65 ml/min (>60); GFR (African American) 79 ML/MIN (>60); Globulin 3.5 g/dL (1.3-3.2); Glucose 207 mg/dl (74-100); Total Protein,Serum 7.9 g/dl (6.3-8.2)
[2024-04-16] MEDS: predniSONE 20MG TAB 40 MG PO (13:05)
[2024-04-16] MEDS: MECLIZINE 25MG TABLET 25 MG PO (13:05)
[2024-04-16] MEDS: DOCUSATE SODIUM 250MG CAPSULE 250 MG PO (13:05)
[2024-04-16] MEDS: FLUTICASONE PROP 50MCG NASAL SPRAY 16GM 1 SPRAY NS (13:05)
--- NOTE | 2024-04-16 13:08 | PC.NURSE ---
Did Orthostaics on this pt. walked from room 10 down the hallway and back. no dizziness until we got back and it came and immediately went away
[2024-04-16] MEDS: KCl 10mEq/100ml 100 ML 100 MEQ IV (13:18)
[2024-04-16] MEDS: 0.9 % SODIUM CHLORIDE 1000ML 1,000 ML 500 ML IV (13:18)
[2024-04-16] MEDS: 0.9 % SODIUM CHLORIDE 50 ML VIAL IV (13:18)
[2024-04-16] MEDS: IOPAMIDOL-370 (76%);100ML BOTTLE 80 ML IV (13:18)
[2024-04-16] MEDS: POTASSIUM CHLORIDE 20MEQ TAB 40 MEQ PO (13:18)
--- NOTE | 2024-04-16 13:35 | PC.NURSE ---
docusate irrigated into the pts L ear by AB HOLM. pt lying on his R side letting the solution sit. no new complaints. call strickland in reach.
--- NOTE | 2024-04-16 13:38 | PC.NURSE ---
PT RESTING IN BED. CALL LIGHT WITHIN REACH. BED IN LOWEST POSITION. NO QUESTIONS OR CONCERNS VOICED.
[2024-04-16 14:28] LABS: HIV (1&2) Antibody Rapid NONREACTIVE (NONREACTIVE)
[2024-04-17 08:21] LABS: HCV Ab Non Reactive (Non Reactive)
== END 2024-04-16 14:47 | disposition home or self-care (01) ==
PROVIDERS: Emergency Provider Emergency Medicine; PCP Nurse Practitioner Family
DX: H60.92 Unspecified otitis externa, left ear (principal); H61.20 Impacted cerumen, unspecified ear; I65.21 Occlusion and stenosis of right carotid artery; R42 Dizziness and giddiness; E87.6 Hypokalemia
CPT/HCPCS: 70450; 70496; 70498; 80053; 85025; 86803; 87389; 93005; 96361; 96365; 99285; J3480; J7030; Q9967

== ENCOUNTER 2024-06-28 15:14 | Observation (INO) | payer MEDICARE, BC, SELFPAY ==
[2024-06-28] VITALS (7 sets, daily range): BP systolic 118–150; BP diastolic 66–84; PULSE 52–65; RESP 14–17; TEMP 36.4–36.9; O2SAT 95–99; BMI 30.8; BMI 30.9
--- NOTE | 2024-06-28 15:22 | ECG_ITS ---
APPROVED REPORT Exam: Resting ECG HR:62 bpm ECG Measurements Heart Rate 62 AXES NJ 169 P 58 QRSd 89 QRS 82 QT 388 T 27 QTc 394 Conclusion SINUS RHYTHM NONSPECIFIC T-WAVE ABNORMALITY BORDERLINE ECG Electronically signed by : JOSE E HUGHES, 06/28/2024 23:42:15
[2024-06-28 15:55] LABS: Basophils # 0.1 K/mm3 (0-0.2); Basophils % 0.6 % (0.1-2.0); Eosinophils # 0.3 K/mm3 (0.0-0.4); Eosinophils % 3.3 % (0.1-12.0); Hematocrit 44.8 % (42.0-52.0); Hemoglobin 14.1 g/dL (14.1-18.0); Lymphocytes # 1.9 K/mm3 (0.7-4.5); Lymphocytes % 19.6 % (10-50); Mean Corpuscular HGB Conc 31.5 g/dL (31.8-35.4); Mean Corpuscular Hemoglobin 25.2 pg (27.0-31.2); Mean Platelet Volume 10.5 fl (7.4-10.4); Monocytes # 0.8 K/mm3 (0.1-1.0); Monocytes % 7.8 % (1.7-9.3); Neutrophils # 6.6 K/mm3 (1.8-7.8); Neutrophils % 68.3 % (37.0-80.0); Platelet Count 238 K/mm3 (142-424); Red Cell Distribution Width 15.2 % (11.5-17.5); White Blood Count 9.7 K/mm3 (4.8-10.8)
[2024-06-28 15:56] LABS: Albumin Level 5.1 g/dl (3.5-5.0); Chloride 100 mmol/L (98-107); Potassium 3.7 mmoL/L (3.5-5.1); Sodium 138 mmol/L (136-145)
[2024-06-28 15:59] LABS: Alanine Aminotransferase 28 U/L (12-78); Albumin/Globulin Ratio 1.8 (1.1-1.8); Alkaline Phosphatase 118 U/L (38-126); Anion Gap 14.7 mEq/L (5-15); Aspartate Amino Transferase 41 U/L (17-59); Bilirubin,Total 0.8 mg/dl (0.2-1.3); Blood Urea Nitrogen 14 mg/dl (9-20); Calcium 9.7 mg/dl (8.4-10.2); Carbon Dioxide 27 mmol/L (22.0-30.0); Creatinine Clearance Estimated 81 mL/min (50-200); Estimated Glomerular Filt Rate 73 ml/min (>60); GFR (African American) 88 ML/MIN (>60); Globulin 2.8 g/dL (1.3-3.2); Glucose 141 mg/dl (74-100); Total Protein,Serum 7.9 g/dl (6.3-8.2)
--- NOTE | 2024-06-28 16:00 | CT_ITS ---
PROCEDURE INFORMATION: Exam: CTA Head With Contrast, Arteriography Exam date and time: 06/28/2024 4:21 PM Age: 74 years old Clinical indication: Pain; Headache; Additional info: Transient L sided weakness/dysarthria TECHNIQUE: Imaging protocol: Computed tomographic angiography of the head with contrast. Exam focused on the arteries. 3D rendering (Not supervised by radiologist): MIP and/or 3D reconstructed images were created by the technologist. Radiation optimization: All CT scans at this facility use at least one of these dose optimization techniques: automated exposure control; mA and/or kV adjustment per patient size (includes targeted exams where dose is matched to clinical indication); or iterative reconstruction. Contrast material: ISOVUE 370; Contrast volume: 80 ml; Contrast route: INTRAVENOUS (IV); COMPARISON: CT ANGIO HEAD 04/16/2024 1:15 PM FINDINGS: ANTERIOR CIRCULATION: Right internal carotid artery: Atherosclerotic calcifications are seen involving the right cavernous internal carotid artery. Mild stenosis is present. No aneurysm. Right middle cerebral artery: No occlusion or significant stenosis. No aneurysm. Right anterior cerebral artery: No occlusion or significant stenosis. No aneurysm. Left internal carotid artery: Atherosclerotic calcifications are seen involving the left cavernous internal carotid artery. There is mild stenosis. No aneurysm. Left middle cerebral artery: No occlusion or significant stenosis. No aneurysm. Left anterior cerebral artery: No occlusion or significant stenosis. No aneurysm. POSTERIOR CIRCULATION: Right vertebral artery: No occlusion or significant stenosis. No aneurysm. Left vertebral artery: No occlusion or significant stenosis. No aneurysm. Basilar artery: No occlusion or significant stenosis. No aneurysm. Right posterior cerebral artery: No occlusion or significant stenosis. No aneurysm. Left posterior cerebral artery: No occlusion or significant stenosis. No aneurysm. Brain: No definite mass, cerebral edema, or midline shift. Cerebral ventricles: No ventriculomegaly. Bones/joints: Unremarkable. No acute fracture. Soft tissues: Unremarkable. IMPRESSION: No large vessel occlusion
--- NOTE | 2024-06-28 16:00 | CT_ITS ---
PROCEDURE INFORMATION: Exam: CT Head Without Contrast Exam date and time: 06/28/2024 4:21 PM Age: 74 years old Clinical indication: Weakness, extremity; Left; Additional info: Transient L sided weakness/dysarthria TECHNIQUE: Imaging protocol: Computed tomography of the head without contrast. Radiation optimization: All CT scans at this facility use at least one of these dose optimization techniques: automated exposure control; mA and/or kV adjustment per patient size (includes targeted exams where dose is matched to clinical indication); or iterative reconstruction. COMPARISON: CT ANGIO HEAD 06/28/2024 4:21 PM FINDINGS: Brain: There is no acute intracranial hemorrhage, cerebral edema, or midline shift. Age-related cerebral and cerebellar volume loss is present. Cerebral ventricles: No hydrocephalus. Paranasal sinuses: Mild mucoperiosteal thickening is noted in the left maxillary sinus. Mastoid air cells: Visualized mastoid air cells are well aerated. Orbital cavities: The visualized orbits appear unremarkable. Bones: Unremarkable. No acute fracture. Soft tissues: Unremarkable. IMPRESSION: 1. No acute intracranial abnormality. 2. [place] Stroke Program Early CT Score (ASPECTS) = 10
--- NOTE | 2024-06-28 16:00 | CT_ITS ---
PROCEDURE INFORMATION: Exam: CTA Neck With Contrast Exam date and time: 06/28/2024 4:21 PM Age: 74 years old Clinical indication: Pain; Headache; Additional info: Transient L sided weakness/dysarthria TECHNIQUE: Imaging protocol: Computed tomographic angiography of the neck with contrast. Exam focused on the cervical segments of the vasculature. 3D rendering (Not supervised by radiologist): MIP and/or 3D reconstructed images were created by the technologist. Radiation optimization: All CT scans at this facility use at least one of these dose optimization techniques: automated exposure control; mA and/or kV adjustment per patient size (includes targeted exams where dose is matched to clinical indication); or iterative reconstruction. Contrast material: ISOVUE 370; Contrast volume: 80 ml; Contrast route: INTRAVENOUS (IV); COMPARISON: CT ANGIO NECK 04/16/2024 1:15 PM FINDINGS: Right common carotid artery: No stenosis. No dissection or occlusion. Right internal carotid artery: Atherosclerotic calcifications are present within the proximal right internal carotid artery. There is no stenosis. Right external carotid artery: No occlusion or stenosis of the origin. Left common carotid artery: No stenosis. No dissection or occlusion. Left internal carotid artery: Atherosclerotic calcifications are present within the proximal left internal carotid artery. This is causing less than 15% stenosis. Left external carotid artery: No occlusion or stenosis of the origin. Right vertebral artery: No stenosis. No dissection or occlusion. Left vertebral artery: The left vertebral artery originates from the distal aortic arch. There is moderate atherosclerotic narrowing of the proximal left vertebral artery at the C7-T1 level. Right subclavian artery: There is mild stenosis of the right subclavian artery origin. Aorta: Atherosclerotic calcifications are noted within the aortic arch. Soft tissues: Normal. No significant soft tissue swelling. Bones/joints: Moderate degenerative changes of the cervical spine are present. Esophagus: The proximal thoracic esophagus is moderately distended and fluid-filled. IMPRESSION: 1. No acute abnormality. 2. Chronic findings as discussed above. REFERENCES: NASCET CRITERIA. The degree of stenosis in the cervical segment of the internal carotid artery is based on NASCET criteria. Normal is no stenosis. Mild is less than 50% stenosis. Moderate is 50-69% stenosis. Severe is 70% to 99% stenosis. Total occlusion is no detectable patent lumen.
[2024-06-28 16:03] LABS: Activated Partial Thrombo Time 25.2 seconds (22.5-28.5); INR 0.94 (0.9-1.1); Prothrombin Time 10.4 seconds (9.2-12.1)
[2024-06-28] MEDS: SODIUM CHLORIDE 0.9% 10ML SYR (RAD ONLY) 10 ML IV (16:24)
[2024-06-28] MEDS: IOPAMIDOL-370 (76%);100ML BOTTLE 80 ML IV (16:24)
[2024-06-28] MEDS: 0.9 % SODIUM CHLORIDE 50 ML VIAL IV (16:24)
[2024-06-28 17:10] LABS: Troponin I < 0.01 ng/ml (0.00-0.034)
--- NOTE | 2024-06-28 17:19 | HMH.EDGENADL ---
Discharge Plan Disposition Patient Disposition: Admitted Condition: Good Clinical Impressions Clinical Impression: TIA (transient ischemic attack) Discharge ED Provider: Aidee Stokes General Adult HPI General Chief complaint: Neuro Symptoms/Deficit Stated complaint: left hand numb and left side face numb eariler tod Time Seen by Provider: 06/28/24 15:23 Mode of Arrival: Ambulatory Source of Information: Patient and Spouse Limitations: No Limitations Description of Symptoms (Recalled from ER Triage Doc. by RN): pt has a 30 second perios of r arm tingling this morning as he was using the bathroom. said his speech was altered but he quickly recovered back to normal. @0930 History of Present Illness HPI narrative: This patient is a 74-year-old male with a history of type 2 diabetes, hypertension, hyperlipidemia, Charcot foot, GERD, CAD status post stenting presenting to the emergency department for evaluation with concern for a brief episode of left-sided weakness, numbness, facial droop, and dysarthria that happened earlier this morning. Patient states that he woke up around 930, went to the bathroom to pee, and as he was peeing he noted that his left arm/hand were numb and tingly. He states that his face also felt heavy and he could feel that it was drawing on the left side. He notes that his tongue felt very thick. He states that his told him good morning, and he tried to respond to her but he had a lot of trouble talking. She thought that he was just messing with her, but then realized that he could be having a stroke. She sat him down and was about to call the ambulance when his symptoms had resolved. They lasted maybe just a few minutes. Since then, has been perfectly fine and has no concerns or complaints. Related Data Home Medications ?Medication ?Instructions ?Recorded ?Confirmed amlodipine 5 mg tablet 5 mg PO DAILY 04/07/21 06/28/24 aspirin 81 mg capsule 81 mg PO DAILY 04/07/21 06/28/24 celecoxib 200 mg capsule 200 mg PO DAILY 04/07/21 06/28/24 diphenhydramine 25 1 tab PO HS PRN Pain 04/07/21 06/28/24 mg-acetaminophen 500 mg tablet (Tylenol PM Extra Strength) losartan 100 1 tab PO DAILY 04/07/21 06/28/24 mg-hydrochlorothiazide 25 mg tablet rvgfzzoz-ds-domhb 300 mcg-K 60 1 tab PO DAILY 04/07/21 06/28/24 mcg-lycop 600 mcg-lutein 300 mcg tablet (Centrum Silver Men) simvastatin 40 mg tablet 40 mg PO DAILY 04/07/21 06/28/24 potassium chloride 10 mEq 10 meq PO DAILY 08/12/21 06/28/24 tablet,extended release blood sugar diagnostic (OneTouch #10 ea 04/14/23 06/28/24 Ultra Test strips) cholestyramine-aspartame 4 gram 1 ea PO DAILY 04/14/23 06/28/24 oral powder for susp in a packet (Prevalite) venlafaxine 75 mg capsule,extended 75 mg PO DAILY 04/14/23 06/28/24 release 24 hr empagliflozin 10 mg tablet 10 mg PO DAILY 07/06/23 06/28/24 (Jardiance) cholecalciferol (vitamin D3) 25 25 mcg PO DAILY 09/27/23 06/28/24 mcg (1,000 unit) chewable tablet (Vitamin D3) esomeprazole magnesium 40 mg 40 mg PO DAILY 05/09/24 06/28/24 capsule,delayed release latanoprost 0.005 % eye drops 1 drp Eye-Both DAILY 05/09/24 06/28/24 semaglutide 1 mg/dose (4 mg/3 mL) 1 mg SQ WEEKLY 05/09/24 06/28/24 subcutaneous pen injector (Ozempic) Allergies Allergy/AdvReac Type Severity Reaction Status Date / Time latex Allergy Intermediate Rash, Verified 06/28/24 15:51 Blister PFSH PFS Disclaimer: The information contained in this section may have been updated after the patient was seen, as this information can be updated by other users. Medical History Impacted cerumen of left ear History of COVID-19 History of tonsillitis Arthritis GERD (gastroesophageal reflux disease) Diabetes HLD (hyperlipidemia) HTN (hypertension) CAD (coronary artery disease) Abnormal stress test Surgical History History of ankle surgery History of knee replacement History of appendectomy History of cholecystectomy History of hernia repair History of cardiac cath Family History Other Family history of cancer Family history of diabetes mellitus Family history of heart disease Social History Smoking Status: Former smoker alcohol intake: former substance use type: denies use current occupational status: retired Travel in the last 8 weeks: None Have you lived/traveled outside [place] in past 30 days?: No Contact w/someone who lives/traveled outside [place] past 30 days?: No Exposure to someone with infectious disease in past 14 days?: No Do you have a fever (greater than 100.4 F or 38 C)?: No Have you tested positive for COVID-19: No Exposed to someone with COVID-19 in past 14 days?: No Do you have a sore throat?: No Do you have a cough?: No Do you have any weakness?: No Do you have any diarrhea?: No Are you experiencing any unusual bleeding?: No Do you have any muscle aches/pain?: Yes Do you have any abdominal pain?: No Are you experiencing loss of taste or smell?: No Other Medical History Have you received the Flu Vaccine for this season: No Have you received the Pneumonia Vaccine: Yes ROS Obtained: Yes All systems reviewed & no additional complaints except as documented Physical Exam General General appearance: alert and in no apparent distress Head Head exam: atraumatic and normocephalic Eye Eye exam: Present normal appearance, PERRL and EOMI ENT ENT exam: Present normal exam, normal oropharynx, mucous membranes moist and normal external ear exam Neck Neck exam: Present normal inspection, full ROM and trachea midline; Absent tenderness Chest Chest inspection: Present normal inspection and symmetric chest wall rise; Absent tenderness Respiratory Respiratory exam: Present normal lung sounds bilaterally; Absent respiratory distress, wheezes, stridor or accessory muscle use Cardiovascular Cardiovascular exam: Present regular rate and normal rhythm Abdominal Exam Abdominal exam: Present soft; Absent distention, tenderness or guarding Extremities Exam Extremities exam: Present normal inspection, full ROM and normal capillary refill; Absent tenderness or edema Back Exam Back exam: Present normal inspection and full ROM; Absent tenderness Neurological Exam Neurological exam: Present alert, oriented X3, CN II-XII intact and normal gait; Absent motor sensory deficit Psychiatric Psychiatric exam: Present normal affect and normal mood Skin Skin exam: Present warm and dry Medical Decision Making Medical Records Medical records reviewed: Yes I reviewed the patient's medical records. Screening: Per USPSTF and CDC recommendations, given the prevalence of disease in our region, it is our hospital?s policy to screen for HIV and viral Hepatitis for all patients aged 18 and over and those with ongoing risk factors. Pasquale Inquiry Pt receiving controlled substance: No Vital Signs: 06/28/24 15:15 06/28/24 15:30 06/28/24 16:00 Temperature 98.4 F Temperature Source Oral Pulse Rate 62 52 L Pulse Rate [Right] 64 Respiratory Rate 15 14 17 Blood Pressure 132/71 118/66 Blood Pressure [Right Arm] 128/73 Blood Pressure Mean [Right Arm] 91 02 Sat by Pulse Oximetry 99 96 95 Oxygen Delivery Method Room Air Room Air Room Air 06/28/24 17:01 06/28/24 17:31 Temperature Temperature Source Pulse Rate 65 Pulse Rate [Right] Respiratory Rate 14 16 Blood Pressure 143/76 H 144/84 H Blood Pressure [Right Arm] Blood Pressure Mean [Right Arm] 02 Sat by Pulse Oximetry 95 Oxygen Delivery Method Room Air Lab Data Lab results reviewed: Yes I reviewed the patient's lab results. Lab Results 06/28/24 15:15: WBC 9.7, RBC 5.60, Hgb 14.1, Hct 44.8, MCV 80.0, MCH 25.2 L, MCHC 31.5 L, RDW 15.2, Plt Count 238, MPV 10.5 H, Neut % (Auto) 68.3, Lymph % (Auto) 19.6, [place] % (Auto) 7.8, Eos % (Auto) 3.3, Baso % (Auto) 0.6, Neut # (Auto) 6.6, Lymph # (Auto) 1.9, [place] # (Auto) 0.8, Eos # (Auto) 0.3, Baso # (Auto) 0.1, PT 10.4, INR 0.94, APTT 25.2, Sodium 138, Potassium 3.7, Chloride 100, Carbon Dioxide 27, Anion Gap 14.7, BUN 14, Creatinine 1.00, Estimated Creat Clear 81, Estimated GFR 73, Est GFR ( Amer) 88, Glucose 141 H, Calcium 9.7, Total Bilirubin 0.8, AST 41, ALT 28, Alkaline Phosphatase 118, Troponin I < 0.01, Total Protein 7.9, Albumin 5.1 H, Globulin 2.8, Albumin/Globulin Ratio 1.8 06/28/24 15:15 06/28/24 15:15 Orders (Tests/Meds): ED MEDICATIONS Discontinued Medications Generic Name Dose Route Start Last Admin Trade Name Spenserq PRN Reason Stop Dose Admin Iopamidol 80 ml 06/28/24 16:24 06/28/24 16:24 Iopamidol-370 (76%);100ml Bottle IV 06/28/24 16:25 80 ml ONCE ONE Administration Sodium Chloride 10 ml 06/28/24 16:24 06/28/24 16:24 Sodium Chloride 0.9% 10ml Syr (Rad Only) IV 06/28/24 16:25 10 ml ONCE ONE Administration Sodium Chloride 50 ml 06/28/24 16:24 06/28/24 16:24 0.9 % Sodium Chloride 50 Ml Vial IV 06/28/24 16:25 50 ml ONCE ONE Administration ORDERS Category Date Time Status CT angio head Stat Cat Scan 06/28/24 16:[address] angio neck Stat Cat Scan 06/28/24 16:[address] head/brain wo con Stat Cat Scan 06/28/24 16:00 Completed Complete Blood Count Auto Diff Stat Lab 06/28/24 15:15 Completed Comprehensive Metabolic Panel Stat Lab 06/28/24 15:15 Completed PT INR [Prothrombin Time INR] Stat Lab 06/28/24 15:15 Completed PTT [Activated Partial Thrombo Time] Stat Lab 06/28/24 15:15 Completed Trop I [Troponin I] Stat Lab 06/28/24 15:15 Completed Troponin I Q3H Lab 06/28/24 19:01 Completed Troponin I Q3H Lab 06/28/24 22:00 Ordered ECG Data Tracing #1: I reviewed this ECG and interpreted as documented below: Normal sinus rhythm with a ventricular to 62 bpm. Nonspecific T wave abnormality but no acute STEMI. Normal axis and intervals ECG initial impression date: 06/28/24 ECG initial impression time: 15:26 Medical Decision Narrative: In summary, this patient is a 74-year-old male presenting to the Emergency Department for evaluation of transient left-sided deficits earlier this morning. Differential diagnoses considered include but are not limited to CVA, TIA, intracranial hemorrhage, intracranial mass, ACS, hypoglycemia. Ruling out the most morbid conditions drove assessment. It should be noted patient's history includes diabetes, hypertension, hyperlipidemia, and CAD which or may not be at goal therapy. This complicates all aspects of care by increasing patient's risk for morbidity. I reviewed patient's past medical records and noted previous evaluations by cardiology, previous cath noting CAD medically managed. On exam, the patient has no concerns or complaints, he is feeling fine, and he has no neurologic symptoms at this time. His NIH stroke scale is 0, as he is completely neurologically intact. Workup included CBC, CP, troponin, EKG, CT head, CT angiogram of the head and neck. I independently interpreted CT scans prior to the radiologist read and noted no obvious large area of ischemia, no obvious intracranial hemorrhage or space-occupying lesion. Please see their read for final interpretation. They do not note anything acute. Labs were obtained that demonstrated reassuring CBC with no significant leukocytosis, reassuring chemistry with normal kidney function and electrolytes. Initial troponin is negative.. On subsequent reassessments, the patient is resting comfortably with no recurrence of neurologic symptoms. No indication for tPA/TNK given that the patient is outside of window, has no neurologic symptoms with NIH stroke scale of 0. Ultimately, I feel he likely has had a transient ischemic attack as a cause of his transient neurologic symptoms based on his risk factors and medical history. I discussed with him outpatient follow-up versus admission for potential MRI, and he would feel more comfortable with admission for MRI. Given this, I had an interactive discussion with the hospitalist who admitted the patient in stable condition for further evaluation and management of TIA Critical Care Critical Care Time Critical Care Time: Yes Attestation: On 06/28/24, the high probability of a clinically significant, sudden or life threatening deterioration of the following system(s) required my full and direct attention, intervention and personal management. The time I documented below is in addition to time spent performing reported procedures but includes the following listed in this critical care notation. Total Time Total Critical Care Time: 30
--- NOTE | 2024-06-28 17:24 | PC.NURSE ---
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
--- NOTE | 2024-06-28 17:46 | PC.NURSE ---
report called to [facility]
--- NOTE | 2024-06-28 18:10 | PC.NURSE ---
Monse Harrell RN called Med/Surg. Checking on the status of pt going upstairs. States they are awaiting for Dr. Holly to place admission orders.
--- NOTE | 2024-06-28 18:25 | PC.NURSE ---
Asked Dr. Stokes to reach out to Dr. Holly in regards to admit orders missing and pt can't go to floor. She will reach out to Dr. Holly.
--- NOTE | 2024-06-28 18:45 | PC.NURSE ---
Dr. Holly has placed admission order. However, m/s will not transport pt at this time.
[2024-06-28 19:32] LABS: Troponin I < 0.01 ng/ml (0.00-0.034)
--- NOTE | 2024-06-28 19:35 | PC.NURSE ---
Patient arrived to floor via wheelchair from ED at 19:11.
[2024-06-28 21:37] LABS: POC Glucose,Bedside 112 (70-110)
[2024-06-28] MEDS: ACETAMINOPHEN 325MG TAB 650 MG PO (21:44)
[2024-06-28] MEDS: POTASSIUM CHLORIDE 10MEQ CAPSULE.ER 10 MEQ PO (21:44)
[2024-06-28] MEDS: PANTOPRAZOLE 40MG TABLET 40 MG PO (21:44)
[2024-06-28] MEDS: diphenhydrAMINE 25MG CAPSULE 25 MG PO (21:45)
--- NOTE | 2024-06-28 22:30 | P.HP_ITS ---
<Statement entered by Olegario Holly MD - 06/29/24 14:10> Personally interviewed and examined patient and agree with the plan of care as outlined by the DELIVERY MGR. History of Present Illness *Admission Date: 06/28/24 *Reason for visit:: TIA symptoms, esophageal dysmotility, chest pain *History of present illness: Mr. Rust who is with his is a very pleasant 74-year-old male. He comes in evaluated by the urgency room today. After having a period of significant decrease in feeling and tingling to his face hand side of the body. This patient has a fairly significant history of last year having surgery up on the left foot ankle replacement., And had bacterial infection at that time. He has improved from that. He then also history of several years ago he has started having trouble swallowing. That of solid food and still presently has to stand up stop eating and let his food rest through his esophagus as he feels he is stuck. He denies any upper endoscopy ever being done Is concerning as we find that the he has a dilated area mid thorax of the e sophagus with fluid present., He noted that a GI doctor placed him on Reglan for 12 weeks. Then his primary care provider kept him taking this twice a day for 2 years. He then had mental issues and tar dive dyskinesia with movement of arms and legs and tongue. After stopping the Reglan this took a long time for it to improve he still has mild tremors to the feet hands and lip. But he notes that mentally he is back and has no issues. Other chronic issues includes diabetes type 2 hypertension hyperlipidemia the foot surgery sock caught foot the GERD and some coronary artery disease with sta tus post stenting in the past. Through his past history he also had a significant amount of dizziness back in March that they felt was related to a large amount of impaction of cerumen in the left ear. He also had CT scans of the head and neck at that time. After this he said he did improve until today. Also noting in his past history at 1 time there were found to be some pericardial fluid without tamponade done in the past. Patient states that he has seen Dr. Brown in the past.. That it has been more than a year since he last seen him. For this reason I do feel that the patient needs to be admitted observed overnight. Cardiology consult for in the morning to make sure that this is not cardiac and also a neurology consult.. MRI of the brain needs to be done to make sure that there has been no small find strokes going on. As with his confusing history with a tar dive dyskinesia and slight tremors. Unable to rule out the fact that he has had a small stroke that has not shown up on CT scan. Question need to add other anticoagulation such as Plavix. He is presently taking aspirin. Do feel this is prudent that a necessary workup is done in the hospital as I do feel there is multiple things coming together that is telling us a potential significant event is looming [facility] Disclaimer: The information contained in this section may have been updated after the patient was seen, as this information can be updated by other users. Medical History (Updated 06/28/24 @ 23:12 by Kanu Perry APRN) TIA (transient ischemic attack) Incurved toenail Hammertoes of both feet Diabetic ulcer of left ankle Blister of left ankle Postoperative cellulitis of surgical wound Postoperative pain Lamellar nail dystrophy Postoperative dehiscence of skin wound Nonunion after arthrodesis Vertigo Cerumen impaction External otitis of left ear Impacted cerumen of left ear History of COVID-19 History of tonsillitis Arthritis GERD (gastroesophageal reflux disease) Diabetes HLD (hyperlipidemia) HTN (hypertension) CAD (coronary artery disease) Abnormal stress test Surgical History History of ankle surgery History of knee replacement History of appendectomy History of cholecystectomy History of hernia repair History of cardiac cath Family History Other Family history of cancer Family history of diabetes mellitus Family history of heart disease Social History Smoking Status: Former smoker alcohol intake: former substance use type: denies use current occupational status: retired Travel in the last 8 weeks: None Have you lived/traveled outside [place] in past 30 days?: No Contact w/someone who lives/traveled outside US past 30 days?: No Exposure to someone with infectious disease in past 14 days?: No Do you have a fever (greater than 100.4 F or 38 C)?: No Have you tested positive for COVID-19: No Exposed to someone with COVID-19 in past 14 days?: No Do you have a sore throat?: No Do you have a cough?: No Do you have any weakness?: No Do you have any diarrhea?: No Are you experiencing any unusual bleeding?: No Do you have any muscle aches/pain?: Yes Do you have any abdominal pain?: No Are you experiencing loss of taste or smell?: No Other Medical History Have you received the Flu Vaccine for this season: Yes Have you received the Pneumonia Vaccine: Yes Review of Systems Review of Systems Review of systems:: pertinent systems reviewed and negative unless documented below Constitutional Constitutional: Reports as per HPI and Reports weight gain Comments: Patient noted after his surgery on left foot last June dropped 40 pounds since has been able to put 10 pounds back on Eyes Eyes: Reports as per HPI Comments: Denies any vision changes ENT Ears, Nose, Mouth, and Throat: Reports as per HPI Comments: Denies any issues with his ears or balance at this time *Cardiovascular Cardiovascular: Reports as per HPI *Respiratory Respiratory: Reports as per HPI *Gastrointestinal Gastrointestinal: Reports as per HPI *Genitourinary Genitourinary: Reports as per HPI *Musculoskeletal Musculoskeletal: Reports as per HPI, Reports abnormal gait and Reports numbness Comments: Chronic ankle foot and knee issues., Is able to ambulate independently Integumentary/Breasts Skin/Breast: Reports as per HPI *Neurologic Neurologic: Reports abnormal gait, Reports localized weakness, Reports numbness and Reports paresthesias Comments: TIA symptoms noted is weakness trembling feeling like mild electric shock., A one-time event today., Past history of significant dizziness in March 2024 longtime history of effects from Reglan medication tar dive dyskinesia has imp roved immensely but still minor or is present, Psychiatric Psychiatric: Reports as per HPI Comments: Patient states mentally he is fine has no signs of depression or anxiety Endocrine Endocrine: Reports as per HPI Hematologic/Lymphatic Hematologic/Lymphatic: Reports as per HPI Allergic/Immunologic Allergic/Immunologic: Reports as per HPI Meds Home Medications and Allergies Home Medications ?Medication ?Instructions ?Recorded ?Confirmed ?Type amlodipine 5 mg tablet 5 mg PO DAILY 04/07/21 06/28/24 History aspirin 81 mg capsule 81 mg PO DAILY 04/07/21 06/28/24 History celecoxib 200 mg capsule 200 mg PO DAILY 04/07/21 06/28/24 History diphenhydramine 25 1 tab PO HS PRN Pain 04/07/21 06/28/24 History mg-acetaminophen 500 mg tablet (Tylenol PM Extra Strength) losartan 100 1 tab PO DAILY 04/07/21 06/28/24 History mg-hydrochlorothiazide 25 mg tablet [id number] 300 mcg-K 60 1 tab PO DAILY 04/07/21 06/28/24 History mcg-lycop 600 mcg-lutein 300 mcg tablet (Centrum Silver Men) simvastatin 40 mg tablet 40 mg PO DAILY 04/07/21 06/28/24 History potassium chloride 10 mEq 10 meq PO BID 08/12/21 06/28/24 History tablet,extended release blood sugar diagnostic (OneTouch #10 ea 04/14/23 06/28/24 History Ultra Test strips) venlafaxine 75 mg capsule,extended 75 mg PO DAILY 04/14/23 06/28/24 History release 24 hr empagliflozin 10 mg tablet 10 mg PO DAILY 07/06/23 06/28/24 History (Jardiance) cholecalciferol (vitamin D3) 25 25 mcg PO DAILY 09/27/23 06/28/24 History mcg (1,000 unit) chewable tablet (Vitamin D3) esomeprazole magnesium 40 mg 40 mg PO DAILY 05/09/24 06/28/24 History capsule,delayed release latanoprost 0.005 % eye drops 1 drp Eye-Both DAILY 05/09/24 06/28/24 History semaglutide 1 mg/dose (4 mg/3 mL) 1 mg SQ WEEKLY 05/09/24 06/28/24 History subcutaneous pen injector (Ozempic) New Prescriptions to Start Prescriptions: Allergies Allergy/AdvReac Type Severity Reaction Status Date / Time latex Allergy Intermediate Rash, Verified 06/28/24 15:51 Blister Exam Data for Last 24 hours Vital signs and Labs for Last 24 Hours: Temp Pulse Resp BP Pulse Ox O2 Del Method 97.6 F 55 L 16 150/75 H 96 Room Air 06/28/24 19:35 06/28/24 19:35 06/28/24 19:35 06/28/24 19:35 06/28/24 19:35 06/28/24 19:35 Laboratory Results - last 24 hr 06/28/24 15:15: WBC 9.7, RBC 5.60, Hgb 14.1, Hct 44.8, MCV 80.0, MCH 25.2 L, MCHC 31.5 L, RDW 15.2, Plt Count 238, MPV 10.5 H, Neut % (Auto) 68.3, Lymph % (Auto) 19.6, [place] % (Auto) 7.8, Eos % (Auto) 3.3, Baso % (Auto) 0.6, Neut # (Auto) 6.6, Lymph # (Auto) 1.9, [place] # (Auto) 0.8, Eos # (Auto) 0.3, Baso # (Auto) 0.1, PT 10.4, INR 0.94, APTT 25.2, Sodium 138, Potassium 3.7, Chloride 100, Carbon Dioxide 27, Anion Gap 14.7, BUN 14, Creatinine 1.00, Estimated Creat Clear 81, Estimated GFR 73, Est GFR ( Amer) 88, Glucose 141 H, Calcium 9.7, Total Bilirubin 0.8, AST 41, ALT 28, Alkaline Phosphatase 118, Troponin I < 0.01, Total Protein 7.9, Albumin 5.1 H, Globulin 2.8, Albumin/Globulin Ratio 1.8 06/28/24 19:01: Troponin I < 0.01 06/28/24 20:10: POC Glucose 112 H I & O for Last 24 hours: Intake & Output 06/26/24 06/27/24 06/28/24 06/29/24 05:59 05:59 05:59 05:59 Weight 197 lb Radiology Reports for the Last 24 Hours: Examined the CT scan of the head and neck. Agree that there is a fluid-filled area mid thoracic of the esophagus., Correlates well with the patient's history that is having trouble with eating solid food having to stand up try to get food to clear Also noting mild carotid stenosis with some calcium buildup in several vessels including the left carotid bulb Constitutional Constitutional: no acute distress and cooperative *Routine HEENT Exam Head: Present normocephalic and atraumatic Eye: Present EOMI, PERRL and normal accommodation ENT: Present mucous membranes moist and oropharynx clear *Routine Neck Exam Neck: Present supple, full ROM and normal carotid upstroke Comments: Right side carotid pulse much stronger than left but both are easily felt and there is no significant murmur/bruit heard Routine Chest/Breast/Axilla Exam Comments: Normal chest wall exam. *Routine Respiratory Exam Respiratory: Present CTA bilaterally, normal respiratory effort, able to speak in complete sentences and symmetric chest movement Comments: Patient has no difficulty with respirations at this time lungs are clear., Equal bilateral expansions of yes. *Routine Cardiovascular Exam Cardiovascular: Present RRR, Normal S1, Normal S2 and murmur Comments: Very slight murmur heard, cardiac exam basically normal. That the tissue of the feet is different related to the fact had chronic issues of multiple surgeries especially on the left leg and ankle, *Routine Abdominal Exam Abdominal: Present soft and normoactive bowel sounds *Routine Rectal Exam Rectal:: deferred *Routine Genitalia Exam Genitalia:: deferred *Routine Extremities Exam Extremities: Present edema (Chronic edema left leg, related to multiple surgeries knee and ankle. No signs of skin breakdown no signs of cellulitis) Routine Back/Spine/Pelvis Exam Back/Spine: Present full ROM Comments: Patient is able to stand and balance without any assistance *Routine Skin Exam Skin: Present intact, dry and warm *Routine Neurological Exam Neurological: Present alert, oriented X3, CN II-XII intact and fasciculations (Noted history of tar dive dyskinesia related to Reglan in the past, some mild tremor to hands feet and also lip) Routine Psychiatric Exam Psychiatric: Present normal affect, normal thought process, cooperative, good insight and good judgment Additional findings Additional findings: -Was in the room while doing the exam., Patient and his seem to get along very well. Was a pleasure talking with them we had several labs. And people from the [place] came by which made the patient extremely happy H&P: Result Impressions 1. TIA symptoms, history of cardiovascular disease, but also history of tar dive dyskinesia., Recent workup in March of last year credited to cerumen impaction that was causing difficulty with balance 2. Esophageal dilation with fluid to mid thoracic area. Patient noting long history of difficulty with swallowing solid food that he has to stand up and quit eating at times because he feels it is stuck., Noting no history of upper endoscopy but was placed on Reglan which she was kept on for 2 years which there is believed to have caused his tar dive dyskinesia 3. Chronic left leg edema related to knee and ankle replacement Imaging and Cardiology CT scan neck: Status: image reviewed by me Additional comments: Noting mild plaque left carotid artery but main concern was dilated esophageal area mid thoracic with fluid noted. CT scan - head: Status: image reviewed by me Additional comments: Noted no vascular bleeding or severe plaque or narrowing of vessels Assessment and Plan *Assessment and plan (1) TIA (transient ischemic attack): Status: Acute Category: Medical Code(s): G45.9 - Transient cerebral ischemic attack, unspecified (2) Esophageal dysmotility: Status: Acute Category: Medical Code(s): K22.4 - Dyskinesia of esophagus (3) Stenosis of right internal carotid artery: Status: Acute Category: Medical Code(s): I65.21 - Occlusion and stenosis of right carotid artery (4) Hyperlipidemia: Status: Acute Qualifiers: Hyperlipidemia type: unspecified Qualified Code(s): E78.5 - Hyperlipidemia, unspecified Category: Medical Code(s): E78.5 - Hyperlipidemia, unspecified (5) Hypertension: Status: Acute Qualifiers: Hypertension type: unspecified Qualified Code(s): I10 - Essential (primary) hypertension Category: Medical Code(s): I10 - Essential (primary) hypertension (6) Tardive dyskinesia: Status: Acute Category: Medical Code(s): G24.01 - Drug induced subacute dyskinesia (7) Type 2 diabetes mellitus with diabetic polyneuropathy, without long-term current use of insulin: Status: Acute Category: Medical Code(s): E11.42 - Type 2 diabetes mellitus with diabetic polyneuropathy (8) Osteoarthritis of left ankle and foot: Status: Chronic Category: Medical Code(s): M19.072 - Primary osteoarthritis, left ankle and foot Plan 1. Will admit patient to the floor for observation overnight., Possible MRI in the morning, for deeper evaluation of TIA symptom., Also will consult cardiology, evaluate blood pressure medicine and the present use of aspirin if more anticoagulation would be needed.. at this time as noted that it can cause some TIA increase.. Patient has been on this chronically due to the significant pain to both of his lower extremities. Also noting whether or not echocardiogram needs to be done due to past history that some fluid was found in the pericardial sac doubt any tamponade. Also noting enlargement of left ventricle wall 2. Esophageal dysmotility., Will have patient evaluated by gastroenterology.. Question cause for this dysmotility. And if it is affecting any type of blood flow from her to the heart.
[2024-06-28 23:25] LABS: Troponin I < 0.01 ng/ml (0.00-0.034)
[2024-06-29 04:00] VITALS: BP 118/64; PULSE 56; RESP 16; TEMP 37; O2SAT 93; BMI 31.8
[2024-06-29 05:59] LABS: POC Glucose,Bedside 109 (70-110)
[2024-06-29] MEDS: PRAVASTATIN 40MG TAB 80 MG PO (06:05)
[2024-06-29 06:23] LABS: Basophils % 0.8 % (0.1-2.0); Eosinophils # 0.3 K/mm3 (0.0-0.4); Eosinophils % 5.9 % (0.1-12.0); Hematocrit 39.6 % (42.0-52.0); Hemoglobin 12.8 g/dL (14.1-18.0); Lymphocytes # 1.4 K/mm3 (0.7-4.5); Lymphocytes % 26.6 % (10-50); Mean Corpuscular HGB Conc 32.3 g/dL (31.8-35.4); Mean Corpuscular Hemoglobin 25.4 pg (27.0-31.2); Mean Corpuscular Volume 78.7 fl (80-94); Mean Platelet Volume 10.6 fl (7.4-10.4); Monocytes # 0.5 K/mm3 (0.1-1.0); Monocytes % 8.8 % (1.7-9.3); Neutrophils % 57.5 % (37.0-80.0); Platelet Count 192 K/mm3 (142-424); Red Blood Count 5.03 M/mm3 (4.60-6.20); Red Cell Distribution Width 15.3 % (11.5-17.5); White Blood Count 5.1 K/mm3 (4.8-10.8)
[2024-06-29 06:43] LABS: Alanine Aminotransferase 23 U/L (12-78); Albumin/Globulin Ratio 1.7 (1.1-1.8); Alkaline Phosphatase 105 U/L (38-126); Anion Gap 13.4 mEq/L (5-15); Aspartate Amino Transferase 35 U/L (17-59); Bilirubin,Total 0.7 mg/dl (0.2-1.3); Blood Urea Nitrogen 12 mg/dl (9-20); Calcium 9.3 mg/dl (8.4-10.2); Carbon Dioxide 27 mmol/L (22.0-30.0); Chloride 102 mmol/L (98-107); Creatinine Clearance Estimated 83 mL/min (50-200); Estimated Glomerular Filt Rate 73 ml/min (>60); GFR (African American) 88 ML/MIN (>60); Globulin 2.4 g/dL (1.3-3.2); Glucose 110 mg/dl (74-100); Magnesium 1.9 mg/dl (1.6-2.3); Potassium 3.4 mmoL/L (3.5-5.1); Sodium 139 mmol/L (136-145); Total Protein,Serum 6.4 g/dl (6.3-8.2)
--- NOTE | 2024-06-29 06:48 | PC.NURSE ---
Pt is alert and oriented x4. Pt has slept well this shift and denies pain. pt denies any s/s of TIA. Pt glucose levels are within range and pt has not required coverage. there are no acute changes to note at this time.
--- NOTE | 2024-06-29 07:23 | HMH.PHAINT1 ---
Pharmacy Intervention Comments: MEDICATION RECONCILIATION COMPLETED ON PATIENT USING EXTERNAL FILL HISTORY FROM PHARMACY. -NICHOLE VASQUEZ, PASCALED
--- NOTE | 2024-06-29 07:56 | CA_ITS ---
APPROVED REPORT EXAM: Comprehensive 2D, Doppler, and color-flow Echocardiogram Drop Wire Builder: Prisca Ba, RT(R) Ht: 5 ft 7 in Wt: 202lbs BSA: 2.03 BP: 150/75 mmHg Indications: TIA, ex smoker, HTN, DM, HLD, CAD, hx of trivial pericardial effusion echo 05/06/23, [facility]. 2D Dimensions Left Atrium 3.59 cm M: 3.0 - 4.0 LVEF (Weir's) 48.20 % M: 52 - 72 LVOT 2.22 cm (M/F) 1.5-2.5 LV Volume 87.90 mL M: 62 - 150 LV Volume Index 43.3 mL/m2 M: 34 - 74 LA Volume 26.30 mL LA Volume Index 12.96 mL/m2 (M/F) 16-34 EF AP4 56.60 % EF AP2 41.4 % EF BP 48.2 % GL Strain -19.3 % M-Mode Dimensions RVDd 2.77 cm (0.9-2.6) LVDd 4.18 cm (3.5-5.7) Ao Diam 2.46 cm (2.0-3.7) LVDs 3.05 cm (3.5-5.7) IVSd 0.96 cm (0.6-1.1) PWd 0.96 cm (0.6-1.1) EF (Teich) 53.20% FS 27.00% EDV (Teich) 77.70 mL ESV (Teich) 36.40 mL LV Diastology E Decel Time 250 (160-240 msec) E/A Ratio 0.7 MED E' 6.2 (>= 7 cm/sec) E'/MED E' Ratio 12.39 (<= 14) LAT E' 8.5 (>= 10 cm/sec) E/LAT E' Ratio 9.04 (<= 14) Mitral Valve MV E Max Hal. 77.0 (40-130 cm/s) MV A Velocity 111.0 (40-130 cm/s) E/A Ratio 0.69 MV Decel. Time 250 (160-240 ms) Left Ventricle The left ventricle is normal size. The left ventricular systolic function is normal. The left ventricular ejection fraction is within the normal range. There is increased LV wall thickness. There is normal LV segmental wall motion. Transmitral Doppler flow pattern suggests impaired LV relaxation. LVEF 60%. Right Ventricle Right ventricle is mildly dilated. The right ventricular systolic function is normal. Atria The left atrium size is normal. The right atrium size is normal. There is no Doppler evidence of interatrial shunt. Aortic Valve Aortic valve is mildly thickened. There is no aortic valvular stenosis. Trace aortic regurgitation. Mitral Valve The mitral valve is normal in structure. No evidence of mitral valve stenosis. Trace mitral regurgitation. Tricuspid Valve Tricuspid valve is grossly normal in structure and function. Trace tricuspid regurgitation. There is insufficient TR jet to estimate RVSP. Pulmonic Valve The pulmonary valve is normal in structure. Trace pulmonic regurgitation. Great Vessels The aortic root is normal in size. The ascending aorta is not well-visualized. IVC is normal in size and collapses >50% with inspiration. Pericardium There is no pericardial effusion. Other Information Study Quality: Fair Conclusion Normal biventricular systolic function. Mild RV dilation. No significant valvular stenosis or regurgitation. Electronically signed by : Misa Green MD 06/29/2024 10:36:28
[2024-06-29 08:00] VITALS: BP 140/71; PULSE 60; RESP 20; TEMP 36.7; O2SAT 97
[2024-06-29 08:06] LABS: Thyroid Stimulating Hormone 1.33 uIU/mL (0.465-4.68)
--- NOTE | 2024-06-29 08:19 | MR_ITS ---
FINAL REPORT CLINICAL HISTORY: TIA, left arm tingling, slurred speech COMPARISON: None FINDINGS: Multi planar MR imaging was obtained through the brain without contrast. The midline structures appear intact. Moderate atrophy is noted. On T2 and flair axial images the brain parenchyma is homogeneous. On diffusion-weighted images there is no evidence of restricted diffusion. The left maxillary sinus is hypoplastic. There is mucoperiosteal thickening noted in the left maxillary sinus. No air-fluid levels. The seventh and eighth nerve root complexes are intact. IMPRESSION: Moderate atrophy without acute abnormality. Reviewed, Interpreted and Dictated by Robert Cedillo MD Transcribed by Mari Hinds Authenticated and [facility]
[2024-06-29 08:42] LABS: Chol/HDL Ratio 4.1 (1-3.5); Cholesterol 142 mg/dl (140-200); HDL Cholesterol 35 mg/dl (40-60); Triglycerides 137 mg/dl (30-150); VLDL Cholesterol 27 mg/dL (0-40)
[2024-06-29 08:53] LABS: Direct LDL Cholesterol 81.19 mg/dL (100-129)
[2024-06-29] MEDS: MAGNESIUM SULFATE IN WATER 2 GM/50 ML PIGGYBACK IV (09:23)
[2024-06-29] MEDS: POTASSIUM CHLORIDE 20MEQ TAB 40 MEQ PO ×2 (09:23→11:16)
[2024-06-29] MEDS: ASPIRIN EC 81MG TABLET 81 MG PO (09:33)
[2024-06-29] MEDS: CLOPIDOGREL 75MG TAB 75 MG PO (09:33)
[2024-06-29] MEDS: VENLAFAXINE XR 75MG CAPSULE 75 MG PO (09:33)
[2024-06-29] MEDS: LATANOPROST 0.005% OPTH SOLN 2.5ML OP (09:34)
--- NOTE | 2024-06-29 09:38 | P.CONCA_ITS ---
History of Present Illness History of Present Illness Consult date: 06/29/24 Requesting physician: Olegario Holly Consult reason: known to you Chief complaint: TIA, dizziness Additional Medical History:: 1. CAD [facility]. [facility], 04/2023, LAD with up to 60 to 70% stenosis in distal 2 mm vessel, 30 to 40% circumflex, 30% proximal to mid RCA. EF 65%, LVEDP 10 mmHg. Medical therapy 2. Hypertension 3. Diabetes mellitus 4. Hyperlipidemia 5. History of medication induced tardive dyskinesia 6. Remote tobacco use discontinued approximately 2009 History of present illness: 74-year-old white male with less than 5 minutes of left arm numbness tingling with associated garbled speech and left facial drooping yesterday morning presented to the emergency department yesterday afternoon at the insistence of his PCP for further evaluation. Extensive workup in the ER revealed no acute abnormalities in the head and neck arteries. He does have some mild arterial disease. Due to cardiac history and recent complaint of dizziness cardiology was consulted for further evaluation. Troponins are noted to be normal. EKG is sinus with no acute ST segment changes. Echocardiogram this morning is pending. Patient denies any recent chest pain, pressure or tightness. No history of palpitations or atrial fibrillation. [facility] Disclaimer: The information contained in this section may have been updated after the patient was seen, as this information can be updated by other users. Medical History (Updated 06/29/24 @ 09:47 by JULES Prince) TIA (transient ischemic attack) Incurved toenail Hammertoes of both feet Diabetic ulcer of left ankle Blister of left ankle Postoperative cellulitis of surgical wound Postoperative pain Lamellar nail dystrophy Postoperative dehiscence of skin wound Nonunion after arthrodesis Vertigo Cerumen impaction External otitis of left ear Impacted cerumen of left ear History of COVID-19 History of tonsillitis Arthritis GERD (gastroesophageal reflux disease) Diabetes HLD (hyperlipidemia) HTN (hypertension) CAD (coronary artery disease) Abnormal stress test Surgical History History of ankle surgery History of knee replacement History of appendectomy History of cholecystectomy History of hernia repair History of cardiac cath Family History Other Family history of cancer Family history of diabetes mellitus Family history of heart disease Social History Smoking Status: Former smoker alcohol intake: former substance use type: denies use current occupational status: retired Travel in the last 8 weeks: None Have you lived/traveled outside [place] in past 30 days?: No Contact w/someone who lives/traveled outside [place] past 30 days?: No Exposure to someone with infectious disease in past 14 days?: No Do you have a fever (greater than 100.4 F or 38 C)?: No Have you tested positive for COVID-19: No Exposed to someone with COVID-19 in past 14 days?: No Do you have a sore throat?: No Do you have a cough?: No Do you have any weakness?: No Do you have any diarrhea?: No Are you experiencing any unusual bleeding?: No Do you have any muscle aches/pain?: Yes Do you have any abdominal pain?: No Are you experiencing loss of taste or smell?: No Review of Systems Review of Systems Review of systems:: pertinent systems reviewed and negative unless documented below *Cardiovascular Cardiovascular: Denies chest pain and Denies dyspnea *Respiratory Respiratory: Denies cough and Denies dyspnea *Musculoskeletal Musculoskeletal: Reports abnormal gait and Reports numbness *Neurologic Neurologic: Reports abnormal gait, Reports localized weakness, Reports numbness and Reports paresthesias Exam Data for Last 24 hours Vital signs and Labs for Last 24 Hours: Temp Pulse Resp BP Pulse Ox O2 Del Method 98.0 F 60 20 140/71 97 Room Air 06/29/24 08:00 06/29/24 08:00 06/29/24 08:00 06/29/24 08:00 06/29/24 08:00 06/29/24 08:00 Laboratory Results - last 24 hr 06/28/24 15:15: WBC 9.7, RBC 5.60, Hgb 14.1, Hct 44.8, MCV 80.0, MCH 25.2 L, MCHC 31.5 L, RDW 15.2, Plt Count 238, MPV 10.5 H, Neut % (Auto) 68.3, Lymph % (Auto) 19.6, [place] % (Auto) 7.8, Eos % (Auto) 3.3, Baso % (Auto) 0.6, Neut # (Auto) 6.6, Lymph # (Auto) 1.9, [place] # (Auto) 0.8, Eos # (Auto) 0.3, Baso # (Auto) 0.1, PT 10.4, INR 0.94, APTT 25.2, Sodium 138, Potassium 3.7, Chloride 100, Carbon Dioxide 27, Anion Gap 14.7, BUN 14, Creatinine 1.00, Estimated Creat Clear 81, Estimated GFR 73, Est GFR ( Amer) 88, Glucose 141 H, Calcium 9.7, Total Bilirubin 0.8, AST 41, ALT 28, Alkaline Phosphatase 118, Troponin I < 0.01, Total Protein 7.9, Albumin 5.1 H, Globulin 2.8, Albumin/Globulin Ratio 1.8 06/28/24 19:01: Troponin I < 0.01 06/28/24 20:10: POC Glucose 112 H 06/28/24 22:22: Troponin I < 0.01 06/29/24 05:48: WBC 5.1 D, RBC 5.03, Hgb 12.8 L, Hct 39.6 L, MCV 78.7 L, MCH 25.4 L, MCHC 32.3, RDW 15.3, Plt Count 192, MPV 10.6 H, Neut % (Auto) 57.5, Lymph % (Auto) 26.6, [place] % (Auto) 8.8, Eos % (Auto) 5.9, Baso % (Auto) 0.8, Neut # (Auto) 3.0, Lymph # (Auto) 1.4, [place] # (Auto) 0.5, Eos # (Auto) 0.3, Baso # (Auto) 0.0, Sodium 139, Potassium 3.4 L, Chloride 102, Carbon Dioxide 27, Anion Gap 13.4, BUN 12, Creatinine 1.00, Estimated Creat Clear 83, Estimated GFR 73, Est GFR ( Amer) 88, Glucose 110 H D, Calcium 9.3, Magnesium 1.9, Total Bilirubin 0.7, AST 35, ALT 23, Alkaline Phosphatase 105, Total Protein 6.4, Albumin 4.0 D, Globulin 2.4, Albumin/Globulin Ratio 1.7, Triglycerides 137, Cholesterol 142, LDL Cholesterol Direct 81.19 L, VLDL Cholesterol 27, HDL Cholesterol 35 L, Cholesterol/HDL Ratio 4.1 H, TSH 1.33 06/29/24 05:51: POC Glucose 109 I & O for Last 24 hours: Intake & Output 06/26/24 06/27/24 06/28/24 06/29/24 11:59 11:59 11:59 11:59 Intake Total 480 / 480 Output Total 0 / 0 Balance 480 / 480 Weight 202 lb 14.4 oz Constitutional Constitutional: no acute distress *Routine Respiratory Exam Respiratory: Present CTA bilaterally; Absent rhonchi or wheezes *Routine Cardiovascular Exam Cardiovascular: Present RRR; Absent murmur, gallop or rubs *Routine Extremities Exam Extremities: Absent edema *Routine Neurological Exam Neurological: Present alert, oriented X3 and CN II-XII intact Meds Home Medications and Allergies Home Medications ?Medication ?Instructions ?Recorded ?Confirmed ?Type amlodipine 5 mg tablet 5 mg PO DAILY 04/07/21 06/28/24 History aspirin 81 mg capsule 81 mg PO DAILY 04/07/21 06/28/24 History celecoxib 200 mg capsule 200 mg PO DAILY 04/07/21 06/28/24 History diphenhydramine 25 1 tab PO HSP PRN Insomnia 04/07/21 06/29/24 History mg-acetaminophen 500 mg tablet (Tylenol PM Extra Strength) losartan 100 1 tab PO DAILY 04/07/21 06/28/24 History mg-hydrochlorothiazide 25 mg tablet [id number] 300 mcg-K 60 1 tab PO DAILY 04/07/21 06/28/24 History mcg-lycop 600 mcg-lutein 300 mcg tablet (Centrum Silver Men) simvastatin 40 mg tablet 40 mg PO HS 04/07/21 06/29/24 History potassium chloride 10 mEq 10 meq PO BID 08/12/21 06/28/24 History tablet,extended release blood sugar diagnostic (OneTouch #10 ea 04/14/23 06/28/24 History Ultra Test strips) venlafaxine 75 mg capsule,extended 75 mg PO DAILY 04/14/23 06/28/24 History release 24 hr empagliflozin 10 mg tablet 10 mg PO DAILY 07/06/23 06/28/24 History (Jardiance) cholecalciferol (vitamin D3) 25 25 mcg PO DAILY 09/27/23 06/28/24 History mcg (1,000 unit) chewable tablet (Vitamin D3) esomeprazole magnesium 40 mg 40 mg PO DAILY 05/09/24 06/28/24 History capsule,delayed release latanoprost 0.005 % eye drops 1 drp Eye-Both DAILY 05/09/24 06/28/24 History semaglutide 1 mg/dose (4 mg/3 mL) 1 mg SQ WEEKLY 05/09/24 06/28/24 History subcutaneous pen injector (Ozempic) New Prescriptions to Start Prescriptions: Allergies Allergy/AdvReac Type Severity Reaction Status Date / Time latex Allergy Intermediate Rash, Verified 06/28/24 15:51 Blister Assessment and Plan *Assessment and plan (1) TIA (transient ischemic attack): Status: Acute Category: Medical Code(s): G45.9 - Transient cerebral ischemic attack, unspecified (2) Dizziness: Status: Acute Category: Medical Code(s): R42 - Dizziness and giddiness (3) CAD (coronary artery disease): Status: Acute Qualifiers: Associated angina: without angina Coronary Disease-Associated Artery/Lesion type: [place] artery [place] vs. transplanted heart: [place] heart Qualified Code(s): I25.10 - Atherosclerotic heart disease of [place] coronary artery without angina pectoris Category: Medical Code(s): I25.10 - Atherosclerotic heart disease of [place] coronary artery without angina pectoris (4) Tardive dyskinesia: Status: Acute Category: Medical Code(s): G24.01 - Drug induced subacute dyskinesia (5) Hypertension: Status: Acute Qualifiers: Hypertension type: unspecified Qualified Code(s): I10 - Essential (primary) hypertension Category: Medical Code(s): I10 - Essential (primary) hypertension (6) Hyperlipidemia: Status: Acute Qualifiers: Hyperlipidemia type: unspecified Qualified Code(s): E78.5 - Hyperlipidemia, unspecified Category: Medical Code(s): E78.5 - Hyperlipidemia, unspecified (7) Diabetes mellitus type 2, controlled: Status: Acute Qualifiers: Diabetes mellitus complication detail: with other circulatory complications Diabetes mellitus complication status: with circulatory complication Diabetes mellitus fdc insulin use: without fdc use Qualified Code(s): E11.59 - Type 2 diabetes mellitus with other circulatory complications Category: Medical Code(s): E11.9 - Type 2 diabetes mellitus without complications Plan 1. TIA, symptoms lasting less than 5 minutes with left-sided arm numbness, facial droop and garbled speech -CTA of head and neck unremarkable -MRI of the head plan -Continue telemetry to look for A-fib (pt has CHADS-VASC score of 7) -Plavix added to aspirin therapy -Continue statin therapy 2. Dizziness -No arrhythmias noted -No evidence of significant anemia or dehydration -No evidence of hypotension 3. CAD, clinically stable -Troponins normal -EKG no acute change -On statin therapy with LDL 81 4. Diabetes mellitus type 2 -Controlled on Ozempic and Jardiance -History of gastroparesis 5. Hypertension -Acceptable control on losartan/HCT and amlodipine 6. Tardive dyskinesia felt related to prolonged Reglan use in the past -Improved with Reglan discontinuation but not resolved. Echo today shows normal LVEF, mild RV enlargment with mild TR. Continue telemetry to monitor for atrial fibrillation and would recommend 2-week event monitor at time of discharge Nothing further to add. Follow up in our office in 3 wks.
[2024-06-29 11:52] LABS: POC Glucose,Bedside 170 (70-110)
[2024-06-29 12:00] VITALS: BP 132/61; PULSE 65; RESP 18; TEMP 36.7; O2SAT 94
--- NOTE | 2024-06-29 13:06 | EXP.DC.SUM ---
General Admission date:: 06/28/24 HPI HPI HPI: Mr. Rust who is with his is a very pleasant 74-year-old male. He comes in evaluated by the urgency room today. After having a period of significant decrease in feeling and tingling to his face hand side of the body. This patient has a fairly significant history of last year having surgery up on the left foot ankle replacement., And had bacterial infection at that time. He has improved from that. He then also history of several years ago he has started having trouble swallowing. That of solid food and still presently has to stand up stop eating and let his food rest through his esophagus as he feels he is stuck. He denies any upper endoscopy ever being done Is concerning as we find that the he has a dilated area mid thorax of the esophagus with fluid present., He noted that a GI doctor placed him on Reglan for 12 weeks. Then his primary care provider kept him taking this twice a day for 2 years. He then had mental issues and tar dive dyskinesia with movement of arms and legs and tongue. After stopping the Reglan this took a long time for it to improve he still has mild tremors to the feet hands and lip. But he notes that mentally he is back and has no issues. Other chronic issues includes diabetes type 2 hypertension hyperlipidemia the foot surgery sock caught foot the GERD and some coronary artery disease with status post stenting in the past. Through his past history he also had a significant amount of dizziness back in March that they felt was related to a large amount of impaction of cerumen in the left ear. He also had CT scans of the head and neck at that time. After this he said he did improve until today. Also noting in his past history at 1 time there were found to be some pericardial fluid without tamponade done in the past. Patient states that he has seen Dr. Brown in the past.. That it has been more than a year since he last seen him. For this reason I do feel that the patient needs to be admitted observed overnight. Cardiology consult for in the morning to make sure that this is not cardiac and also a neurology consult.. MRI of the brain needs to be done to make sure that there has been no small find strokes going on. As with his confusing history with a tar dive dyskinesia and slight tremors. Unable to rule out the fact that he has had a small stroke that has not shown up on CT scan. Question need to add other anticoagulation such as Plavix. He is presently taking aspirin. Do feel this is prudent that a necessary workup is done in the hospital as I do feel there is multiple things coming together that is telling us a potential significant event is looming Hospital Course Hospital Course Hospital Course: Gerson Parmar is a 74-year-old male who was admitted for TIA symptoms of transient left arm weakness, and dysarthria. #TIA #Left arm weakness/tingling, dysarthria ? Patient had an episode of left arm weakness/tingling, and dysarthria that self resolved after 30 seconds at home. ? No history of strokes, but does have underlying CAD, diabetes. ? CT head, CTA head/neck did not reveal acute finding or large vessel occlusion. ECHO unremarkable. LDL 81, A1c 6.0. ? Brain MRI showed moderate atrophy but no acute ischemic findings. ? Back to baseline, no focal neurological deficits. ? Discharged with aspirin 81 mg, Plavix 75 mg for 21 days, then monotherapy. Continue home simvastatin. ? Will follow-up with PCP within 2 weeks. #CAD ? LHC April 2023 did not show significant occlusion but CAD present. ? Will follow-up with cardiology within 2 weeks. Will benefit from sleep apnea testing. #Type 2 diabetes ? Hemoglobin A1c 6.0. No hypoglycemia. ? Continue home Jardiance 10 mg, Ozempic. #History of gastroparesis #Tardive dyskinesia #Dilated esophagus ? Apparently was started on Phenergan more than 2 years ago for gastroparesis, which was not discontinued. Has acquired tar dive dyskinesia, which has improved since stopping Phenergan few months ago. ? CTA neck shows proximal esophagus that is moderately distended and fluid-filled. Discussed with GI, will perform EGD on 07/02/2024. #Hypertension ? Continue home losartan, hydrochlorothiazide, amlodipine. Blood pressure at goal. #GERD ? Resume home PPI. #Anxiety/depression ? Resume home venlafaxine 75 mg daily. Exam Data for Last 24 hours Vital signs and Labs for Last 24 Hours: Temp Pulse Resp BP Pulse Ox O2 Del Method 98.0 F 60 20 140/71 97 Room Air 06/29/24 08:00 06/29/24 08:00 06/29/24 08:00 06/29/24 08:00 06/29/24 08:00 06/29/24 08:00 Laboratory Results - last 24 hr 06/28/24 15:15: WBC 9.7, RBC 5.60, Hgb 14.1, Hct 44.8, MCV 80.0, MCH 25.2 L, MCHC 31.5 L, RDW 15.2, Plt Count 238, MPV 10.5 H, Neut % (Auto) 68.3, Lymph % (Auto) 19.6, [place] % (Auto) 7.8, Eos % (Auto) 3.3, Baso % (Auto) 0.6, Neut # (Auto) 6.6, Lymph # (Auto) 1.9, [place] # (Auto) 0.8, Eos # (Auto) 0.3, Baso # (Auto) 0.1, PT 10.4, INR 0.94, APTT 25.2, Sodium 138, Potassium 3.7, Chloride 100, Carbon Dioxide 27, Anion Gap 14.7, BUN 14, Creatinine 1.00, Estimated Creat Clear 81, Estimated GFR 73, Est GFR ( Amer) 88, Glucose 141 H, Calcium 9.7, Total Bilirubin 0.8, AST 41, ALT 28, Alkaline Phosphatase 118, Troponin I < 0.01, Total Protein 7.9, Albumin 5.1 H, Globulin 2.8, Albumin/Globulin Ratio 1.8 06/28/24 19:01: Troponin I < 0.01 06/28/24 20:10: POC Glucose 112 H 06/28/24 22:22: Troponin I < 0.01 06/29/24 05:48: WBC 5.1 D, RBC 5.03, Hgb 12.8 L, Hct 39.6 L, MCV 78.7 L, MCH 25.4 L, MCHC 32.3, RDW 15.3, Plt Count 192, MPV 10.6 H, Neut % (Auto) 57.5, Lymph % (Auto) 26.6, [place] % (Auto) 8.8, Eos % (Auto) 5.9, Baso % (Auto) 0.8, Neut # (Auto) 3.0, Lymph # (Auto) 1.4, [place] # (Auto) 0.5, Eos # (Auto) 0.3, Baso # (Auto) 0.0, Sodium 139, Potassium 3.4 L, Chloride 102, Carbon Dioxide 27, Anion Gap 13.4, BUN 12, Creatinine 1.00, Estimated Creat Clear 83, Estimated GFR 73, Est GFR ( Amer) 88, Glucose 110 H D, Calcium 9.3, Magnesium 1.9, Total Bilirubin 0.7, AST 35, ALT 23, Alkaline Phosphatase 105, Total Protein 6.4, Albumin 4.0 D, Globulin 2.4, Albumin/Globulin Ratio 1.7, Triglycerides 137, Cholesterol 142, LDL Cholesterol Direct 81.19 L, VLDL Cholesterol 27, HDL Cholesterol 35 L, Cholesterol/HDL Ratio 4.1 H, TSH 1.33 06/29/24 05:51: POC Glucose 109 06/29/24 11:14: POC Glucose 170 H I & O for Last 24 hours: Intake & Output 06/26/24 06/27/24 06/28/24 06/29/24 23:59 23:59 23:59 23:59 Intake Total 480 / 480 Output Total 0 / 0 0 / 0 Balance 0 / 480 480 / 480 Weight 89.358 kg 92.034 kg Constitutional Constitutional: no acute distress *Routine HEENT Exam Head: Present normocephalic Eye: Present EOMI and PERRL ENT: Present mucous membranes moist *Routine Neck Exam Neck: Present supple; Absent lymphadenopathy *Routine Respiratory Exam Respiratory: Present CTA bilaterally *Routine Cardiovascular Exam Cardiovascular: Present RRR *Routine Abdominal Exam Abdominal: Present soft and normoactive bowel sounds; Absent tenderness *Routine Extremities Exam Extremities: Absent cyanosis, clubbing or edema *Routine Skin Exam Skin: Present warm; Absent rash *Routine Neurological Exam Neurological: Present alert and oriented X3 Results Data Completed and Pending Labs on day of discharge: Labs from last 24 hours 06/29/24 06/29/24 06/29/24 11:14 05:51 05:48 WBC 5.1 D RBC 5.03 Hgb 12.8 L Hct 39.6 L MCV 78.7 L MCH 25.4 L MCHC 32.3 RDW 15.3 Plt Count 192 MPV 10.6 H Neut % (Auto) 57.5 Lymph % (Auto) 26.6 [place] % (Auto) 8.8 Eos % (Auto) 5.9 Baso % (Auto) 0.8 Neut # (Auto) 3.0 Lymph # (Auto) 1.4 [place] # (Auto) 0.5 Eos # (Auto) 0.3 Baso # (Auto) 0.0 PT INR APTT Sodium 139 Potassium 3.4 L Chloride 102 Carbon Dioxide 27 Anion Gap 13.4 BUN 12 Creatinine 1.00 Estimated Creat Clear 83 Estimated GFR 73 Est GFR ( Amer) 88 Glucose 110 H D POC Glucose 170 H 109 Calcium 9.3 Magnesium 1.9 Total Bilirubin 0.7 AST 35 ALT 23 Alkaline Phosphatase 105 Troponin I Total Protein 6.4 Albumin 4.0 D Globulin 2.4 Albumin/Globulin Ratio 1.7 Triglycerides 137 Cholesterol 142 LDL Cholesterol Direct 81.19 L VLDL Cholesterol 27 HDL Cholesterol 35 L Cholesterol/HDL Ratio 4.1 H TSH 1.33 06/28/24 06/28/24 06/28/24 22:22 20:10 19:01 WBC RBC Hgb Hct MCV MCH MCHC RDW Plt Count MPV Neut % (Auto) Lymph % (Auto) [place] % (Auto) Eos % (Auto) Baso % (Auto) Neut # (Auto) Lymph # (Auto) [place] # (Auto) Eos # (Auto) Baso # (Auto) PT INR APTT Sodium Potassium Chloride Carbon Dioxide Anion Gap BUN Creatinine Estimated Creat Clear Estimated GFR Est GFR ( Amer) Glucose POC Glucose 112 H Calcium Magnesium Total Bilirubin AST ALT Alkaline Phosphatase Troponin I < 0.01 < 0.01 Total Protein Albumin Globulin Albumin/Globulin Ratio Triglycerides Cholesterol LDL Cholesterol Direct VLDL Cholesterol HDL Cholesterol Cholesterol/HDL Ratio TSH 06/28/24 15:15 WBC 9.7 RBC 5.60 Hgb 14.1 Hct 44.8 MCV 80.0 MCH 25.2 L MCHC 31.5 L RDW 15.2 Plt Count 238 MPV 10.5 H Neut % (Auto) 68.3 Lymph % (Auto) 19.6 [place] % (Auto) 7.8 Eos % (Auto) 3.3 Baso % (Auto) 0.6 Neut # (Auto) 6.6 Lymph # (Auto) 1.9 [place] # (Auto) 0.8 Eos # (Auto) 0.3 Baso # (Auto) 0.1 PT 10.4 INR 0.94 APTT 25.2 Sodium 138 Potassium 3.7 Chloride 100 Carbon Dioxide 27 Anion Gap 14.7 BUN 14 Creatinine 1.00 Estimated Creat Clear 81 Estimated GFR 73 Est GFR ( Amer) 88 Glucose 141 H POC Glucose Calcium 9.7 Magnesium Total Bilirubin 0.8 AST 41 ALT 28 Alkaline Phosphatase 118 Troponin I < 0.01 Total Protein 7.9 Albumin 5.1 H Globulin 2.8 Albumin/Globulin Ratio 1.8 Triglycerides Cholesterol LDL Cholesterol Direct VLDL Cholesterol HDL Cholesterol Cholesterol/HDL Ratio TSH DS: Diagnosis Discharge Diagnosis (1) TIA (transient ischemic attack): Status: Acute Code(s): G45.9 - Transient cerebral ischemic attack, unspecified (2) Dizziness: Status: Acute Code(s): R42 - Dizziness and giddiness (3) CAD (coronary artery disease): Status: Acute Code(s): I25.10 - Atherosclerotic heart disease of [place] coronary artery without angina pectoris Qualifiers: Coronary Disease-Associated Artery/Lesion type: [place] artery [place] vs. transplanted heart: [place] heart Associated angina: without angina Qualified Code(s): I25.10 - Atherosclerotic heart disease of [place] coronary artery without angina pectoris (4) Tardive dyskinesia: Status: Acute Code(s): G24.01 - Drug induced subacute dyskinesia (5) Hypertension: Status: Acute Code(s): I10 - Essential (primary) hypertension Qualifiers: Hypertension type: unspecified Qualified Code(s): I10 - Essential (primary) hypertension (6) Hyperlipidemia: Status: Acute Code(s): E78.5 - Hyperlipidemia, unspecified Qualifiers: Hyperlipidemia type: unspecified Qualified Code(s): E78.5 - Hyperlipidemia, unspecified (7) Diabetes mellitus type 2, controlled: Status: Acute Code(s): E11.9 - Type 2 diabetes mellitus without complications Qualifiers: Diabetes mellitus group home paraprofessional insulin use: without group home paraprofessional use Diabetes mellitus complication status: with circulatory complication Diabetes mellitus complication detail: with other circulatory complications Qualified Code(s): E11.59 - Type 2 diabetes mellitus with other circulatory complications Meds Home Medications and Allergies Home Medications ?Medication ?Instructions ?Recorded ?Confirmed ?Type amlodipine 5 mg tablet 5 mg PO DAILY 04/07/21 06/28/24 History aspirin 81 mg capsule 81 mg PO DAILY 04/07/21 06/28/24 History celecoxib 200 mg capsule 200 mg PO DAILY 04/07/21 06/28/24 History diphenhydramine 25 1 tab PO HSP PRN Insomnia 04/07/21 06/29/24 History mg-acetaminophen 500 mg tablet (Tylenol PM Extra Strength) losartan 100 1 tab PO DAILY 04/07/21 06/28/24 History mg-hydrochlorothiazide 25 mg tablet [id number] 300 mcg-K 60 1 tab PO DAILY 04/07/21 06/28/24 History mcg-lycop 600 mcg-lutein 300 mcg tablet (Centrum Silver Men) simvastatin 40 mg tablet 40 mg PO HS 04/07/21 06/29/24 History potassium chloride 10 mEq 10 meq PO BID 08/12/21 06/28/24 History tablet,extended release blood sugar diagnostic (OneTouch #10 ea 04/14/23 06/28/24 History Ultra Test strips) venlafaxine 75 mg capsule,extended 75 mg PO DAILY 04/14/23 06/28/24 History release 24 hr empagliflozin 10 mg tablet 10 mg PO DAILY 07/06/23 06/28/24 History (Jardiance) cholecalciferol (vitamin D3) 25 25 mcg PO DAILY 09/27/23 06/28/24 History mcg (1,000 unit) chewable tablet (Vitamin D3) esomeprazole magnesium 40 mg 40 mg PO DAILY 05/09/24 06/28/24 History capsule,delayed release latanoprost 0.005 % eye drops 1 drp Eye-Both DAILY 05/09/24 06/28/24 History semaglutide 1 mg/dose (4 mg/3 mL) 1 mg SQ WEEKLY 05/09/24 06/28/24 History subcutaneous pen injector (Ozempic) clopidogrel 75 mg tablet 75 mg PO DAILY 20 days #20 tabs 06/29/24 Rx New Prescriptions to Start Prescriptions: Olegario Alvarez Allergies Allergy/AdvReac Type Severity Reaction Status Date / Time latex Allergy Intermediate Rash, Verified 06/28/24 15:51 Blister Discharge Plan Disposition Patient Disposition: Home, Self-Care Condition: Fair Follow up Plan Follow up with: Nickie Bullock APRN [Other] - 07/18/24 (Please attend your PCP appointment schduled prior to your stay at the hospital. (:) Billy De La Garza II, MD [Staff Physician] - Enter time for follow up (the office will call you regarding your appopintment. thank you ! (:) David Elena PA [Physician Air Pollution Inspector] - 07/18/24 1:30 pm Prescriptions/Medication Reconciliation: New clopidogrel 75 mg Tablet 75 mg PO DAILY 20 Days Qty: 20 0RF Continued amlodipine 5 mg tablet 5 mg PO DAILY losartan-hydrochlorothiazide 100-25 mg tablet 1 tab PO DAILY simvastatin 40 mg tablet 40 mg PO HS celecoxib 200 mg capsule 200 mg PO DAILY aspirin 81 mg capsule 81 mg PO DAILY Centrum Silver Men 300-600-300 mcg tablet 1 tab PO DAILY diphenhydramine-acetaminophen [Tylenol PM Extra Strength] 25-500 mg tablet 1 tab PO HSP PRN (Reason: Insomnia) potassium chloride 10 mEq tablet extended release 10 meq PO BID venlafaxine 75 mg capsule,extended release 24hr 75 mg PO DAILY (DME) OneTouch Ultra Test Strip See Rx Instructions .ROUTE .MEDSUPPLY Qty: 10 Rx Instructions: As directed Ozempic 1 mg/dose (4 mg/3 mL) pen injector 1 mg SQ WEEKLY Patient Comments: INJECT 1MG SUBCUTANEOUSLY INTO THE APPROPRIATE AREA DIRECTED ONCE WEEKLY latanoprost 0.005 % drops 1 drp Eye-Both DAILY esomeprazole magnesium 40 mg capsule,delayed release(DR/EC) 40 mg PO DAILY Patient Comments: TAKE 1 CAPSULE EVERY MORNING BEFORE BREAKFAST Jardiance 10 mg tablet 10 mg PO DAILY cholecalciferol (vitamin D3) [Vitamin D3] 25 mcg (1,000 unit) Tablet,Chewable 25 mcg PO DAILY Problem Reconciliation Problems Reviewed?: Yes Patient Discharge Instructions Additional Instructions: Your brain MRI did not show a stroke, but did show age-related chronic changes. Take Plavix 75 mg over 20 more days. For your dilated esophagus, GI would like to do an EGD (upper GI scope) on Tuesday. They will call you to make an appointment. Patient Instructions: DI for Transient Ischemic Attack Print Language: Croatian Providers Primary Care Provider: Nickie Bullock Admit Provider: Olegario Holly Attending Provider: Olegario Holly
== END 2024-06-29 14:52 | disposition home or self-care (01) ==
LOC: ER 15:38 → 2ND 17:44
PROVIDERS: Nurse Practitioner Family; Physician Assistant; Admitting Provider Student in an Organized Health Care Education/Training Program; Emergency Provider Emergency Medicine; PCP Nurse Practitioner Family; Visit Provider Student in an Organized Health Care Education/Training Program
DX: G45.9 Transient cerebral ischemic attack, unspecified (principal); I25.10 Atherosclerotic heart disease of native coronary artery without angina pectoris; I10 Essential (primary) hypertension; E78.5 Hyperlipidemia, unspecified; K21.9 Gastro-esophageal reflux disease without esophagitis; E11.9 Type 2 diabetes mellitus without complications; G24.01 Drug induced subacute dyskinesia; T43.595S Adverse effect of other antipsychotics and neuroleptics, sequela; K22.89 Other specified disease of esophagus; F32.A Depression, unspecified; F41.9 Anxiety disorder, unspecified; Z79.84 Long term (current) use of oral hypoglycemic drugs; Z87.891 Personal history of nicotine dependence; Z79.899 Other long term (current) drug therapy; Z79.85 Long-term (current) use of injectable non-insulin antidiabetic drugs; Z79.82 Long term (current) use of aspirin
CPT/HCPCS: 36415; 70450; 70496; 70498; 70551; 80053; 80061; 82962; 83735; 84443; 84484; 85025; 85610; 85730; 93005; 93270; 93306; 99291; G0378; J3475; Q9967

== ENCOUNTER 2024-07-11 06:08 | Day surgery (SDC) | payer MEDICARE, BC, SELFPAY ==
[2024-07-10 10:14] VITALS: BMI 32.9
[2024-07-11] MEDS: LACTATED RINGERS 1000ML 1,000 ML 50 ML IV (06:38)
[2024-07-11 06:39] VITALS: BP 133/72; PULSE 68; RESP 18; TEMP 36.2; O2SAT 98
--- NOTE | 2024-07-11 06:53 | EXP.ANES.CKL ---
[facility] Disclaimer: The information contained in this section may have been updated after the patient was seen, as this information can be updated by other users. Medical History Dizziness Hypokalemia Stenosis of right internal carotid artery Postoperative edema Change or removal of surgical wound dressing Hyperlipidemia TIA (transient ischemic attack) Incurved toenail Hammertoes of both feet Diabetic ulcer of left ankle Blister of left ankle Postoperative cellulitis of surgical wound Postoperative pain Lamellar nail dystrophy Postoperative dehiscence of skin wound Nonunion after arthrodesis Vertigo Cerumen impaction External otitis of left ear Impacted cerumen of left ear History of COVID-19 History of tonsillitis Arthritis GERD (gastroesophageal reflux disease) Diabetes HLD (hyperlipidemia) HTN (hypertension) CAD (coronary artery disease) Abnormal stress test Surgical History Status post arthrodesis History of ankle surgery History of knee replacement History of appendectomy History of cholecystectomy History of hernia repair x2 History of cardiac cath Family History Other Family history of cancer Family history of diabetes mellitus Family history of heart disease Social History Smoking Status: Former smoker alcohol intake: former substance use type: denies use current occupational status: retired Travel in the last 8 weeks: None Have you lived/traveled outside [place] in past 30 days?: No Contact w/someone who lives/traveled outside [place] past 30 days?: No Exposure to someone with infectious disease in past 14 days?: No Do you have a fever (greater than 100.4 F or 38 C)?: No Have you tested positive for COVID-19: No Exposed to someone with COVID-19 in past 14 days?: No Do you have a sore throat?: No Do you have a cough?: No Do you have any weakness?: No Do you have any diarrhea?: No Are you experiencing any unusual bleeding?: No Do you have any muscle aches/pain?: No Do you have any abdominal pain?: No Are you experiencing loss of taste or smell?: No [facility] Anesthesia Checklist Patient Identification Patient Identification: Arm Band and Family Structural Data Admitted From: Home Planned Operative Procedure/s: EGD Consent for Planned Operative Procedure(s) Verified: Yes Verified Documents: Surgical Consent and History and Physical NPO Status Verified Time NPO: 00:00 Additional verifications Patient : No Anesthesia Reactions: No Hx Blood Transfusions: No Blood Transfusion Reaction: No Cephalosporin Allergy: No Previous Colonoscopy: Yes Airway Assessment Mallampati Score:: Class II C-Spine Mobility Assessed: Yes TMJ Mobility Assessed: Yes Dentition: Good Dentition Neurological Assessment Level of Consciousness: Awake, Alert, Appropriate and Follows Commands Hx Seizures: Yes Numbness or tingling in extremities: No Anesthesia Plan Anesthesia Risk discussed: Yes ASA Class: II Anesthesia Type: MAC Preoperative Comments Pre-Operative Comments: TIA one week ago, lasting around 20 seconds. NIDDM. Hypertension. Latex allergy. Difficult swallowing.
[2024-07-11 07:03] LABS: POC Glucose,Bedside 152 (70-110)
[2024-07-11 07:25] VITALS: O2SAT 97
--- NOTE | 2024-07-11 07:34 | EXP.HP ---
History of Present Illness *Admission Date: 07/11/24 *Reason for visit:: Dysphagia *History of present illness: Mr. Parmar is a 74-year-old gentleman with dysphagia who is here for diagnostic EGD. The examination is deemed medically necessary for diagnostic EGD. The patient has been seen, interviewed and examined prior to the procedure by both myself and the anesthesia provider. [facility] Disclaimer: The information contained in this section may have been updated after the patient was seen, as this information can be updated by other users. Medical History Dizziness Hypokalemia Stenosis of right internal carotid artery Postoperative edema Change or removal of surgical wound dressing Hyperlipidemia TIA (transient ischemic attack) Incurved toenail Hammertoes of both feet Diabetic ulcer of left ankle Blister of left ankle Postoperative cellulitis of surgical wound Postoperative pain Lamellar nail dystrophy Postoperative dehiscence of skin wound Nonunion after arthrodesis Vertigo Cerumen impaction External otitis of left ear Impacted cerumen of left ear History of COVID-19 History of tonsillitis Arthritis GERD (gastroesophageal reflux disease) Diabetes HLD (hyperlipidemia) HTN (hypertension) CAD (coronary artery disease) Abnormal stress test Surgical History Status post arthrodesis History of ankle surgery History of knee replacement History of appendectomy History of cholecystectomy History of hernia repair x2 History of cardiac cath Family History Other Family history of cancer Family history of diabetes mellitus Family history of heart disease Social History Smoking Status: Former smoker alcohol intake: former substance use type: denies use current occupational status: retired Travel in the last 8 weeks: None Have you lived/traveled outside US in past 30 days?: No Contact w/someone who lives/traveled outside US past 30 days?: No Exposure to someone with infectious disease in past 14 days?: No Do you have a fever (greater than 100.4 F or 38 C)?: No Have you tested positive for COVID-19: No Exposed to someone with COVID-19 in past 14 days?: No Do you have a sore throat?: No Do you have a cough?: No Do you have any weakness?: No Do you have any diarrhea?: No Are you experiencing any unusual bleeding?: No Do you have any muscle aches/pain?: No Do you have any abdominal pain?: No Are you experiencing loss of taste or smell?: No Other Medical History Have you received the Flu Vaccine for this season: No Have you received the Pneumonia Vaccine: Yes Review of Systems Review of Systems Review of systems (narrative): Negative *Cardiovascular Comments: Negative *Gastrointestinal Comments: Negative *Genitourinary Comments: Negative *Musculoskeletal Comments: Negative *Neurologic Comments: Negative Meds Home Medications and Allergies Home Medications ?Medication ?Instructions ?Recorded ?Confirmed ?Type amlodipine 5 mg tablet 5 mg PO DAILY 04/07/21 07/11/24 History aspirin 81 mg capsule 81 mg PO DAILY 04/07/21 07/11/24 History celecoxib 200 mg capsule 200 mg PO DAILY 04/07/21 07/11/24 History losartan 100 1 tab PO DAILY 04/07/21 07/11/24 History mg-hydrochlorothiazide 25 mg tablet [id number] 300 mcg-K 60 1 tab PO DAILY 04/07/21 07/11/24 History mcg-lycop 600 mcg-lutein 300 mcg tablet (Centrum Silver Men) simvastatin 40 mg tablet 40 mg PO HS 04/07/21 07/11/24 History potassium chloride 10 mEq 10 meq PO BID 08/12/21 07/11/24 History tablet,extended release blood sugar diagnostic (OneTouch #10 ea 04/14/23 07/09/24 History Ultra Test strips) venlafaxine 75 mg capsule,extended 75 mg PO DAILY 04/14/23 07/11/24 History release 24 hr empagliflozin 10 mg tablet 10 mg PO DAILY 07/06/23 07/11/24 History (Jardiance) cholecalciferol (vitamin D3) 25 25 mcg PO DAILY 09/27/23 07/11/24 History mcg (1,000 unit) chewable tablet (Vitamin D3) esomeprazole magnesium 40 mg 40 mg PO DAILY 05/09/24 07/11/24 History capsule,delayed release latanoprost 0.005 % eye drops 1 drp Eye-Both DAILY 05/09/24 07/11/24 History semaglutide 1 mg/dose (4 mg/3 mL) 1 mg SQ WEEKLY 05/09/24 07/11/24 History subcutaneous pen injector (Ozempic) clopidogrel 75 mg tablet 75 mg PO DAILY 20 days #20 tabs 06/29/24 07/11/24 Rx diclofenac sodium 1 % topical gel 4 g topical QID PRN pain 30 days 07/09/24 07/11/24 Rx (Voltaren Arthritis Pain) #100 grams diphenhydramine 25 1 tab PO HS PRN Sleep 07/11/24 07/11/24 History mg-acetaminophen 500 mg tablet (Tylenol PM Extra Strength) New Prescriptions to Start Prescriptions: Allergies Allergy/AdvReac Type Severity Reaction Status Date / Time latex Allergy Intermediate Rash, Verified 07/11/24 06:35 Blister Exam Data for Last 24 hours Vital signs and Labs for Last 24 Hours: Temp Pulse Resp BP Pulse Ox O2 Del Method O2 Flow Rate 97.1 F L 68 18 133/72 98 Nasal Cannula 5 07/11/24 06:39 07/11/24 06:39 07/11/24 06:39 07/11/24 06:39 07/11/24 06:39 07/11/24 07:25 07/11/24 07:25 Laboratory Results - last 24 hr 07/11/24 06:54: POC Glucose 152 H I & O for Last 24 hours: Intake & Output 07/08/24 07/09/24 07/10/24 07/11/24 23:59 23:59 23:59 23:59 Weight 204 lb *Routine HEENT Exam Head: Present normocephalic Eye: Present EOMI and PERRL ENT: Present mucous membranes moist *Routine Neck Exam Neck: Present supple *Routine Respiratory Exam Respiratory: Present CTA bilaterally *Routine Cardiovascular Exam Cardiovascular: Present RRR *Routine Abdominal Exam Abdominal: Present soft and normoactive bowel sounds; Absent tenderness *Routine Rectal Exam Rectal:: deferred *Routine Genitalia Exam Genitalia:: deferred *Routine Extremities Exam Extremities: Absent cyanosis, clubbing or edema *Routine Skin Exam Skin: Present warm; Absent rash *Routine Neurological Exam Neurological: Present alert and oriented X3 Assessment and Plan *Assessment and plan (1) Dysphagia: Status: Acute Category: Medical Code(s): R13.10 - Dysphagia, unspecified (2) Heartburn: Status: Acute Category: Medical Code(s): R12 - Heartburn (3) Belching: Status: Acute Category: Medical Code(s): R14.2 - Eructation (4) Diarrhea: Status: Acute Category: Medical Code(s): R19.7 - Diarrhea, unspecified (5) GERD (gastroesophageal reflux disease): Status: Acute Category: Medical Code(s): K21.9 - Gastro-esophageal reflux disease without esophagitis Plan A/P: 1. Dysphagia with heartburn and GERD and belching is the preprocedural diagnosis. The patient will be anesthetized/sedated using MAC sedation. The patient has been seen and examined. Cardiac and lung assessment prior to the examination is stable. Proceed with planned diagnostic/therapeutic EGD
--- NOTE | 2024-07-11 07:42 | P.PCN_ITS ---
[facility] Procedure Note Date: 07/11/24 Time: 07:49 Procedure Note:: Upper Endoscopy Procedure Report: Esophagogastroduodenoscopy with cold biopsies and TTS balloon dilation Endoscopost: Billy De La Garza II, MD Referring Physician: CHRISTOPHER Zuniga Date of Procedure: July 11, 2024 Equipment: Olympus GIF 190 standard upper endoscope Sedation: MAC sedation Indications: Mr. Parmar is a 74-year-old gentleman who is here for diagnostic/therapeutic EGD. He has had dysphagia to solid foods such as breads and meats. He also has some chronic heartburn and reflux. He does take omeprazole but this does not control his symptoms. He reports belching. He reports no bloating or gassiness. He does have frequent watery diarrhea. He stopped metformin but his diarrhea has persisted. The patient has been on semaglutide. His last EGD and colonoscopy were 6 to 7 years ago (2017). He was recently admitted late last month with TIA symptoms and some dysarthria. Procedure: Prior to the procedure, a history and physical exam was performed, and patient's medications and allergies were reviewed. The risks, benefits and alternatives of the sedation and procedure were discussed with the patient. All questions were answered and informed consent was obtained. The patient was brought to the procedure room. Patient identification and proposed procedure were verified by the physician and the nurse. The patient was placed in a left lateral decubitus position and the scope was passed under direct vision. Throughout the procedure, the patient's blood pressure, pulse, and oxygen saturations were monitored continuously. The upper GI endoscopy was accomplished without difficulty. The patient tolerated the procedure well. Findings: The scope was passed directly into the upper esophagus and advanced to the third portion of the duodenum. The post bulbar duodenum and duodenal bulb were normal with normal mucosa and conniventes. Cold biopsies were taken in the first portion of duodenum and duodenal bulb to rule out celiac disease. There was no scalloping. The scope was withdrawn through a normal duodenal bulb and pylorus into the stomach. There was mild linear gastropathy of the antrum. There was a moderate amount of retained digestive solid food content in the body and fundus. Upon retroflexion there was a 3 cm medium sized hiatal hernia.. The scope was then withdrawn into the esophagus. There was a distal fibrotic ring. There was also some esophageal luminal diameter dilation and tertiary contractions consistent with moderate to marked esophageal dysmotility. There was no evidence of reflux esophagitis or Rodriguez's. There was no corrugation or furrowing. The fibrotic ring was dilated to 60 Divehi/20 mm with a TTS hydrostatic balloon. The entire esophagus was dilated. The remainder of the esophageal mucosa was normal. Impression: 1. Distal esophageal fibrotic ring status post dilation to 20 mm 2. Moderate to marked esophageal dysmotility with some failure relaxation of the LES 3. Medium size 3 cm hiatal hernia 4. Retained solid gastric food content?Ozempic effect (gastric dysmotility/gastroparesis) Plan: I will follow-up the biopsies. I will discuss the findings with the patient and family. He may require promotility therapy. Based upon his chronic diarrhea, I do feel that we should consider colonoscopy as well.
[2024-07-11 07:54] VITALS: BP 124/81; PULSE 98; RESP 18; TEMP 36.3; O2SAT 93
[2024-07-11 08:04] VITALS: BP 147/91; PULSE 91; RESP 17; O2SAT 95
[2024-07-11 08:14] VITALS: BP 130/71; PULSE 68; RESP 17; O2SAT 94
[2024-07-11 08:24] VITALS: BP 130/74; PULSE 61; RESP 17; O2SAT 94
== END 2024-07-11 08:30 | disposition home or self-care (01) ==
PROVIDERS: PCP Nurse Practitioner Family; Visit Provider Internal Medicine Gastroenterology
PROC: 0DJ08ZZ Inspection of Upper Intestinal Tract, Via Natural or Artificial Opening Endoscopic (ICD-10-PCS; CPT 43239; principal; 2024-07-11 07:30)
DX: R13.10 Dysphagia, unspecified (principal); R12 Heartburn; R14.2 Eructation; R19.7 Diarrhea, unspecified; K21.9 Gastro-esophageal reflux disease without esophagitis; K31.9 Disease of stomach and duodenum, unspecified; K44.9 Diaphragmatic hernia without obstruction or gangrene; K22.4 Dyskinesia of esophagus; K22.2 Esophageal obstruction; K31.84 Gastroparesis; E11.621 Type 2 diabetes mellitus with foot ulcer; Z79.85 Long-term (current) use of injectable non-insulin antidiabetic drugs
CPT/HCPCS: 43239; 43249; 82962; C1726; J7120

== ENCOUNTER 2024-07-25 12:04 | Day surgery (SDC) | payer MEDICARE, BC, SELFPAY ==
[2024-07-24 11:26] VITALS: BMI 30.7
[2024-07-25 12:28] VITALS: BP 137/84; PULSE 102; RESP 16; TEMP 36.7; O2SAT 98
[2024-07-25] MEDS: LACTATED RINGERS 1000ML 1,000 ML 50 ML IV (12:37)
[2024-07-25 12:44] LABS: POC Glucose,Bedside 163 (70-110)
--- NOTE | 2024-07-25 13:01 | P.PNANES_ITS ---
[facility] Disclaimer: The information contained in this section may have been updated after the patient was seen, as this information can be updated by other users. Medical History Enlarged RV (right ventricle) Dizziness Hypokalemia Stenosis of right internal carotid artery Postoperative edema Change or removal of surgical wound dressing Hyperlipidemia TIA (transient ischemic attack) Incurved toenail Hammertoes of both feet Diabetic ulcer of left ankle Blister of left ankle Postoperative cellulitis of surgical wound Postoperative pain Lamellar nail dystrophy Postoperative dehiscence of skin wound Nonunion after arthrodesis Vertigo Cerumen impaction External otitis of left ear Impacted cerumen of left ear History of COVID-19 History of tonsillitis Arthritis GERD (gastroesophageal reflux disease) Diabetes HLD (hyperlipidemia) HTN (hypertension) CAD (coronary artery disease) Abnormal stress test Surgical History (Updated 07/25/24 @ 12:27 by Dayami Elena RN) History of colonoscopy Status post arthrodesis History of ankle surgery History of knee replacement History of appendectomy History of cholecystectomy History of hernia repair History of cardiac cath Family History Other Family history of cancer Family history of diabetes mellitus Family history of heart disease Social History Smoking Status: Former smoker alcohol intake: former substance use type: denies use current occupational status: retired Travel in the last 8 weeks: None Have you lived/traveled outside US in past 30 days?: No Contact w/someone who lives/traveled outside US past 30 days?: No Exposure to someone with infectious disease in past 14 days?: No Do you have a fever (greater than 100.4 F or 38 C)?: No Have you tested positive for COVID-19: No Exposed to someone with COVID-19 in past 14 days?: No Do you have a sore throat?: No Do you have a cough?: No Do you have any weakness?: No Do you have any diarrhea?: No Are you experiencing any unusual bleeding?: No Do you have any muscle aches/pain?: No Do you have any abdominal pain?: No Are you experiencing loss of taste or smell?: No [facility] Anesthesia Checklist Patient Identification Patient Identification: Arm Band and Verbal (Name & ) Structural Data Admitted From: Home Planned Operative Procedure/s: colonoscopy Consent for Planned Operative Procedure(s) Verified: Yes Verified Documents: Surgical Consent NPO Status Verified Time NPO: 00:00 Additional verifications Fingerstick Blood Glucose: 163 Patient : No Anesthesia Reactions: No Hx Blood Transfusions: No Blood Transfusion Reaction: No Cephalosporin Allergy: No Previous Colonoscopy: No Cardiovascular Assessment Heart Sounds: S1 & S2 Pulse Strength: Baseline Pulse Rhythm: Regular Peripheral Edema: No Airway Assessment Mallampati Score:: Class III C-Spine Mobility Assessed: Yes TMJ Mobility Assessed: Yes Dentition: Good Dentition Neurological Assessment Level of Consciousness: Awake, Alert and Appropriate Hx Seizures: No Numbness or tingling in extremities: No Anesthesia Plan Anesthesia Risk discussed: Yes Anesthesia Plan: Verified ASA Class: III Anesthesia Type: MAC
--- NOTE | 2024-07-25 13:15 | P.HP_ITS ---
History of Present Illness *Admission Date: 07/25/24 *Reason for visit:: Chronic diarrhea *History of present illness: Mr. Parmar is a 74-year-old gentleman who is here for diagnostic colonoscopy secondary to chronic and frequent watery diarrhea. He stopped metformin but his diarrhea persisted. The examination is deemed medically necessary for chronic diarrhea and last colonoscopy was 2018. The patient has been seen, interviewed and examined prior to the procedure by both myself and the anesthesia provider. [facility] Disclaimer: The information contained in this section may have been updated after the patient was seen, as this information can be updated by other users. Medical History (Updated 07/25/24 @ 13:16 by Billy De La Garza II, MD) Enlarged RV (right ventricle) Dizziness Hypokalemia Stenosis of right internal carotid artery Postoperative edema Change or removal of surgical wound dressing Hyperlipidemia TIA (transient ischemic attack) Incurved toenail Hammertoes of both feet Diabetic ulcer of left ankle Blister of left ankle Postoperative cellulitis of surgical wound Postoperative pain Lamellar nail dystrophy Postoperative dehiscence of skin wound Nonunion after arthrodesis Vertigo Cerumen impaction External otitis of left ear Impacted cerumen of left ear History of COVID-19 History of tonsillitis Arthritis GERD (gastroesophageal reflux disease) Diabetes HLD (hyperlipidemia) HTN (hypertension) CAD (coronary artery disease) Abnormal stress test Surgical History (Updated 07/25/24 @ 12:27 by Dayami Elena RN) History of colonoscopy Status post arthrodesis History of ankle surgery History of knee replacement History of appendectomy History of cholecystectomy History of hernia repair History of cardiac cath Family History Other Family history of cancer Family history of diabetes mellitus Family history of heart disease Social History Smoking Status: Former smoker alcohol intake: former substance use type: denies use current occupational status: retired Travel in the last 8 weeks: None Have you lived/traveled outside US in past 30 days?: No Contact w/someone who lives/traveled outside US past 30 days?: No Exposure to someone with infectious disease in past 14 days?: No Do you have a fever (greater than 100.4 F or 38 C)?: No Have you tested positive for COVID-19: No Exposed to someone with COVID-19 in past 14 days?: No Do you have a sore throat?: No Do you have a cough?: No Do you have any weakness?: No Do you have any diarrhea?: No Are you experiencing any unusual bleeding?: No Do you have any muscle aches/pain?: No Do you have any abdominal pain?: No Are you experiencing loss of taste or smell?: No Other Medical History Have you received the Flu Vaccine for this season: No Have you received the Pneumonia Vaccine: Yes Review of Systems Review of Systems Review of systems (narrative): Negative *Cardiovascular Comments: Negative *Gastrointestinal Comments: Negative *Genitourinary Comments: Negative *Musculoskeletal Comments: Negative *Neurologic Comments: Negative Meds Home Medications and Allergies Home Medications ?Medication ?Instructions ?Recorded ?Confirmed ?Type amlodipine 5 mg tablet 5 mg PO DAILY 04/07/21 07/25/24 History aspirin 81 mg capsule 81 mg PO DAILY 04/07/21 07/25/24 History celecoxib 200 mg capsule 200 mg PO DAILY 04/07/21 07/25/24 History losartan 100 1 tab PO DAILY 04/07/21 07/25/24 History mg-hydrochlorothiazide 25 mg tablet [id number] 300 mcg-K 60 1 tab PO DAILY 04/07/21 07/25/24 History mcg-lycop 600 mcg-lutein 300 mcg tablet (Centrum Silver Men) simvastatin 40 mg tablet 40 mg PO HS 04/07/21 07/25/24 History potassium chloride 10 mEq 10 meq PO BID 08/12/21 07/25/24 History tablet,extended release blood sugar diagnostic (OneTouch #10 ea 04/14/23 07/25/24 History Ultra Test strips) venlafaxine 75 mg capsule,extended 75 mg PO DAILY 04/14/23 07/25/24 History release 24 hr empagliflozin 10 mg tablet 10 mg PO DAILY 07/06/23 07/25/24 History (Jardiance) cholecalciferol (vitamin D3) 25 25 mcg PO DAILY 09/27/23 07/25/24 History mcg (1,000 unit) chewable tablet (Vitamin D3) esomeprazole magnesium 40 mg 40 mg PO DAILY 05/09/24 07/25/24 History capsule,delayed release latanoprost 0.005 % eye drops 1 drp Eye-Both DAILY 05/09/24 07/25/24 History semaglutide 1 mg/dose (4 mg/3 mL) 1 mg SQ WEEKLY 05/09/24 07/25/24 History subcutaneous pen injector (Ozempic) diphenhydramine 25 1 tab PO HS PRN Sleep 07/11/24 07/25/24 History mg-acetaminophen 500 mg tablet (Tylenol PM Extra Strength) sodium,potassium,mag sulfates 17.5 See Rx Instructions PO .COMPLEX 07/16/24 07/25/24 Rx gram-3.13 gram-1.6 gram oral soln #354 mL (Suprep Bowel Prep Kit) clopidogrel 75 mg tablet 75 mg PO DAILY #90 tabs 07/18/24 07/25/24 Rx New Prescriptions to Start Prescriptions: Allergies Allergy/AdvReac Type Severity Reaction Status Date / Time latex Allergy Intermediate Rash, Verified 07/25/24 12:28 Blister Exam Data for Last 24 hours Vital signs and Labs for Last 24 Hours: Temp Pulse Resp BP Pulse Ox O2 Del Method 98.1 F 102 H 16 137/84 98 Room Air 07/25/24 12:28 07/25/24 12:28 07/25/24 12:28 07/25/24 12:28 07/25/24 12:28 07/25/24 12:28 Laboratory Results - last 24 hr 07/25/24 12:24: POC Glucose 163 H I & O for Last 24 hours: Intake & Output 07/22/24 07/23/24 07/24/24 07/25/24 23:59 23:59 23:59 23:59 Weight 196 lb *Routine HEENT Exam Head: Present normocephalic Eye: Present EOMI and PERRL ENT: Present mucous membranes moist *Routine Neck Exam Neck: Present supple *Routine Respiratory Exam Respiratory: Present CTA bilaterally *Routine Cardiovascular Exam Cardiovascular: Present RRR *Routine Abdominal Exam Abdominal: Present soft and normoactive bowel sounds; Absent tenderness *Routine Rectal Exam Rectal:: deferred *Routine Genitalia Exam Genitalia:: deferred *Routine Extremities Exam Extremities: Absent cyanosis, clubbing or edema *Routine Skin Exam Skin: Present warm; Absent rash *Routine Neurological Exam Neurological: Present alert and oriented X3 Assessment and Plan *Assessment and plan (1) Chronic diarrhea: Status: Acute Category: Medical Code(s): K52.9 - Noninfective gastroenteritis and colitis, unspecified Plan A/P: 1. Chronic diarrhea is the preprocedural diagnosis. The patient will be anesthetized/sedated using MAC sedation. The patient has been seen and examined. Cardiac and lung assessment prior to the examination is stable. Proceed with planned diagnostic colonoscopy
--- NOTE | 2024-07-25 13:16 | HMH.PROCNOTE ---
[facility] Procedure Note Date: 07/25/24 Time: 13:36 Procedure Note:: Colonoscopy Procedure Report: Colonoscopy with cold biopsies Endoscopist: Billy De La Garza II, MD Referring physician: CHRISTOPHER Zuniga Date of Procedure: July 25, 2024 Equipment: Olympus 190 variable stiffness pediatric colonoscope Sedation: MAC sedation Indication: Mr. Parmar is a 74-year-old gentleman who is here for diagnostic colonoscopy secondary to chronic watery diarrhea that began 6 to 8 months ago. He has had no formed bowel movements. He reports no abdominal pain, weight loss, rectal bleeding or family history of colon cancer. His last colonoscopy in 2018 (in [place]) was reportedly normal. Procedure: Prior to the procedure, a history and physical exam was performed, and patient's medications and allergies were reviewed. The risks, benefits and alternatives of the sedation and procedure were discussed with the patient. All questions were answered and informed consent was obtained. The patient was brought to the procedure room. Patient identification and proposed procedure were verified by the physician and the nurse. The patient was placed in a left lateral decubitus position and the scope was passed under direct vision. Throughout the procedure, the patient's blood pressure, pulse, and oxygen saturations were monitored continuously. The colonoscopy was accomplished without difficulty. The patient tolerated the procedure well. Findings: On digital rectal examination there was normal rectal tone. There were no external hemorrhoids. There was a small nodule or small cyst at the right upper margin of the prostate. The colonoscope was introduced through the anal canal to the rectum and advanced to the cecum. The ileocecal valve and appendiceal orifice were identified. The scope was advanced a short distance into the ileum which appeared grossly normal. The scope was then withdrawn into the colon. The cecum, ascending and transverse colon and mucosa were grossly normal. Cold biopsies were taken randomly from the right and left colon to rule out microscopic colitis. There were scattered diverticuli throughout the descending and sigmoid colon (LEFT colon). The rectum itself was normal. Upon retroflexion within the rectum there were grade 1-2 internal hemorrhoids. The preparation was excellent throughout with [place] Preparation Score of 9. The cecal time was 12 minutes. Impression: 1. Left-sided diverticulosis 2. Grade 1-2 internal hemorrhoids 3. Small nodule or cyst right upper margin of prostate Plan: I will follow-up the biopsies to rule out microscopic colitis. The patient should not require any further preventive colonoscopy. If the biopsies are normal, would consider addition of bulk (FiberCon) and possibly Colestid or Viberzi. If the biopsies do show microscopic colitis, I would then consider treatment with budesonide. I will obtain PSA.
[2024-07-25 13:24] VITALS: O2SAT 98
[2024-07-25 13:39] VITALS: BP 99/54; PULSE 71; RESP 18; TEMP 36.5; O2SAT 94
[2024-07-25 13:49] VITALS: BP 102/58; PULSE 64; RESP 18; O2SAT 95
[2024-07-25 13:56] VITALS: BP 106/65; PULSE 64; RESP 20; O2SAT 93
[2024-07-25 14:11] VITALS: BP 116/61; PULSE 58; RESP 18; O2SAT 93
== END 2024-07-25 14:11 | disposition home or self-care (01) ==
PROVIDERS: Visit Provider Internal Medicine Gastroenterology
PROC: 0DJD8ZZ Inspection of Lower Intestinal Tract, Via Natural or Artificial Opening Endoscopic (ICD-10-PCS; CPT 45378; principal; 2024-07-25 13:30)
DX: K57.30 Diverticulosis of large intestine without perforation or abscess without bleeding (principal); K64.8 Other hemorrhoids; N42.83 Cyst of prostate; K52.9 Noninfective gastroenteritis and colitis, unspecified; E11.621 Type 2 diabetes mellitus with foot ulcer; L97.509 Non-pressure chronic ulcer of other part of unspecified foot with unspecified severity; Z79.85 Long-term (current) use of injectable non-insulin antidiabetic drugs
CPT/HCPCS: 45380; 82962; J7120